=== PATIENT | female | born 1990 | race Caucasian/White ===

== ENCOUNTER 2018-05-07 20:44 | Emergency (ER) | payer BC ==
[~2018-05-07] VITALS: Ht 154.9 cm; Wt 59.4 kg
--- OUTSIDE RECORDS SUMMARY | 2018-05-07 20:47 | XMS REPORT | Summary of Care ---
Author Author [facility] Organization [facility] Address Unknown Phone Unavailable Encounter ABNER De Leon(EVAN) [id number] Date(s): 05/19/16 - 05/20/16 [facility] [address] [place] [address]- Discharge Diagnosis: Hyperemesis gravidarum Discharge Disposition: Home or Self Care Attending Physician: Jonnie Newby MD Vital Signs Most recent to 1 oldest [Reference Range]: Height 154.94 cm (05/19/16 8:13 PM) Temperature Oral 98.2 DegF [96.4-99.1 DegF] (05/19/16 8:13 PM) Blood Pressure 127/83 mmHg [90-140/60-90 mmHg] (05/19/16 8:13 PM) Respiratory Rate 18 BRMIN [14-20 BRMIN] (05/19/16 8:13 PM) Peripheral Pulse 83 bpm Rate [60-100 bpm] (05/19/16 8:13 PM) Weight 55.909 kg (05/19/16 8:13 PM) Body Mass Index 23.29 m2 (05/19/16 8:13 PM) Problem List No data available for this section Allergies, Adverse Reactions, Alerts Substance Reaction Severity Status NKDA Active Medications metoclopramide 10 mg, 2 mL, Route: IVP, Drug form: INJ, ONCE, Dosing Weight 55.909, kg, Priorit y: STAT, Start date: 05/19/16 20:19:00 VETERINARIAN EPIDEMIOLOGIST, Stop date: 05/19/16 20:19:00 VETERINARIAN EPIDEMIOLOGIST Notes: (Same as: Mindy) Start Date: 05/19/16 Stop Date: 05/19/16 Status: Completed Multivitamins with Folic Acid 0.4 mg oral kit 1 tab, PO, Daily, # 30 tab, 0 Refill(s) Start Date: 05/19/16 Stop Date: 06/18/16 Status: Ordered Reglan 10 mg oral tablet 10 mg=1 tab, PO, QID-Before Meals, PRN nausea and vomiting, X 10 day, # 40 tab, 0 Refill(s) Start Date: 05/19/16 Stop Date: 05/29/16 Status: Ordered Saline Flush 0.9% 10 mL, Route: IVP, Drug Form: INJ, Dosing Weight 55.909, kg, PRN, PRN Line Flush , Start date: 05/19/16 20:19:00 VETERINARIAN EPIDEMIOLOGIST, Duration: 30 day, Stop date: 06/18/16 20:18 :00 VETERINARIAN EPIDEMIOLOGIST Notes: (Same as: BD Posiflush) Start Date: 05/19/16 Stop Date: 05/20/16 Status: Discontinued Sodium Chloride 0.9% (Bolus) IV 1,000 mL, 1000 ml/hr, Infuse Over: 1 hr, Route: IV, 1,000, Drug form: INJ, ONCE, Priority: STAT, Dosing Weight 55.909 kg, Start date: 05/19/16 20:19:00 VETERINARIAN EPIDEMIOLOGIST, Dur ation: 1 doses or times, Stop date: 05/19/16 20:19:00 VETERINARIAN EPIDEMIOLOGIST Start Date: 05/19/16 Stop Date: 05/19/16 Status: Completed Results ELECTROLYTES Most recent to 1 oldest [Reference Range]: Sodium Lvl [135-145 138 mEq/L mEq/L] (05/19/16 9:10 PM) Potassium Lvl 4.1 mEq/L [3.5-5.1 mEq/L] (05/19/16 9:10 PM) Chloride Lvl [95-109 107 mEq/L mEq/L] (05/19/16 9:10 PM) CO2 [24-32 mEq/L] 22 mEq/L *LOW* (05/19/16 9:10 PM) AGAP [10.0-20.0 13.1 mEq/L mEq/L] (05/19/16 9:10 PM) CHEM PANEL Most recent to 1 oldest [Reference Range]: Creatinine Lvl 0.54 mg/dL [0.50-1.40 mg/dL] (05/19/16 9:10 PM) eGFR 133 mL/min/1.73m2 1 *NA* (05/19/16 9:10 PM) BUN [7-22 mg/dL] 13 mg/dL (05/19/16 9:10 PM) B/C Ratio [6-25] 24 (05/19/16 9:10 PM) Glucose Lvl [70-99 80 mg/dL mg/dL] (05/19/16 9:10 PM) Total Protein 7.4 g/dL [6.4-8.4 g/dL] (05/19/16 9:10 PM) Albumin Lvl [3.5-5.0 3.6 g/dL g/dL] (05/19/16 9:10 PM) Globulin [2.7-4.2 3.8 g/dL g/dL] (05/19/16 9:10 PM) A/G Ratio [0.7-1.6] 0.9 (05/19/16 9:10 PM) Calcium Lvl 9.1 mg/dL [8.5-10.5 mg/dL] (05/19/16 9:10 PM) Magnesium Lvl 2.1 mg/dL [1.8-2.4 mg/dL] (05/19/16 9:10 PM) ALT [0-65 unit/L] 16 unit/L (05/19/16 9:10 PM) AST [0-37 unit/L] 16 unit/L (05/19/16 9:10 PM) Alk Phos [39-136 41 unit/L unit/L] (05/19/16 9:10 PM) Bili Total [0.2-1.3 0.2 mg/dL mg/dL] (05/19/16 9:10 PM) Lipase Lvl [73-393 107 unit/L unit/L] (05/19/16 9:10 PM) 1Result Comment: The eGFR is calculated using the CKD-EPI formula. In most young, healthy individuals the eGFR will be >90 mL/min/1.73m2. The eGFR declines with age. An eGFR of 60-89 may be normal in some populations, particularly the elderly, for whom the CKD-EPI formula has not been extensively validated. Use of the eGFR is not recommended in the following populations: Individuals with unstable creatinine concentrations, including patients and those with serious co-morbid conditions. Patients with extremes in muscle mass or diet. The data above are obtained from the National Kidney Disease Education Program ( NKDEP) which additionally recommends that when the eGFR is used in patients with extremes of body mass index for purposes of drug dosing, the eGFR should be mul tiplied by the estimated BMI. ENDOCRINOLOGY Most recent to 1 oldest [Reference Range]: hCG Tot 915967 mIU/mL *NA* (05/19/16 9:10 PM) URINE AND STOOL Most recent to 1 oldest [Reference Range]: UA Turbidity [Clear] Clear (05/19/16 11:09 PM) UA Color Ltyellow *NA* (05/19/16 11:09 PM) UA pH [5.0-8.0] 6.0 (05/19/16 11:09 PM) UA Spec Grav 1.011 [<=1.030] (05/19/16 11:09 PM) UA Glucose [Negative Negative mg/dL mg/dL] *NA* (05/19/16 11:09 PM) UA Blood [Negative] Negative (05/19/16 11:09 PM) UA Ketones [Negative 80 mg/dL mg/dL] *ABN* (05/19/16 11:09 PM) UA Protein [Negative Negative mg/dL mg/dL] (05/19/16 11:09 PM) UA Urobilinogen <=1.0 mg/dL [0.1-1.0 mg/dL] *NA* (05/19/16 11:09 PM) UA Bili [Negative] Negative *NA* (05/19/16 11:09 PM) UA Leuk Est Negative [Negative] (05/19/16 11:09 PM) UA Nitrite Negative [Negative] (05/19/16 11:09 PM) UA WBC [0-5 /HPF] 1 /HPF (05/19/16 11:09 PM) UA RBC [0-2 /HPF] 1 /HPF (05/19/16 11:09 PM) UA Bacteria [None Occasional /HPF Seen /HPF] *NA* (05/19/16 11:09 PM) UA Sq Epi [Few /LPF] Few /LPF *NA* (05/19/16 11:09 PM) UA Mucus [None Seen Few /LPF /LPF] *NA* (05/19/16 11:09 PM) HEMATOLOGY Most recent to 1 oldest [Reference Range]: WBC [3.7-10.4 K/CMM] 13.4 K/CMM *HI* (05/19/16 9:10 PM) RBC [4.20-5.40 4.25 M/CMM M/CMM] (05/19/16 9:10 PM) Hgb [12.0-16.0 g/dL] 12.0 g/dL (05/19/16 9:10 PM) Hct [36.0-48.0 %] 36.0 % (05/19/16 9:10 PM) MCV [80.0-98.0 fL] 84.6 fL (05/19/16 9:10 PM) MCH [27.0-31.0 pg] 28.1 pg (05/19/16 9:10 PM) MCHC [32.0-36.0 33.3 g/dL g/dL] (05/19/16 9:10 PM) RDW [11.5-14.5 %] 13.5 % (05/19/16 9:10 PM) Platelet [133-450 224 K/CMM K/CMM] (05/19/16 9:10 PM) MPV [7.4-10.4 fL] 8.4 fL (05/19/16 9:10 PM) Segs [45.0-75.0 %] 74.0 % (05/19/16 9:10 PM) Lymphocytes 14.5 % [20.0-40.0 %] *LOW* (05/19/16 9:10 PM) Monocytes [2.0-12.0 5.7 % %] (05/19/16 9:10 PM) Eosinophils [0.0-4.0 5.4 % %] *HI* (05/19/16 9:10 PM) Basophils [0.0-1.0 0.4 % %] (05/19/16 9:10 PM) Segs-Bands # 9.9 K/CMM [1.5-8.1 K/CMM] *HI* (05/19/16 9:10 PM) Lymphocytes # 1.9 K/CMM [1.0-5.5 K/CMM] (05/19/16 9:10 PM) Monocytes # [0.0-0.8 0.8 K/CMM K/CMM] (05/19/16 9:10 PM) Eosinophils # 0.7 K/CMM [0.0-0.5 K/CMM] *HI* (05/19/16 9:10 PM) Immunizations No data available for this section Procedures No data available for this section Social History Social History Type Response Alcohol Current, Type Beer. Previous treatment: None. Smoking Status Current some day smoker; Exposure to Tobacco Smoke None; Cigarette Smoking Last 365 Days Yes; Reg Smoking Cessation Counseling No Assessment and Plan No data available for this section
--- OUTSIDE RECORDS SUMMARY | 2018-05-07 20:47 | XMS REPORT | Summary of Care ---
Author Author [facility] Organization [facility] Address Unknown Phone Unavailable Encounter ABNER De Leon(FIN) [id number] Date(s): 09/20/17 - 09/20/17 [facility] [address] [place] [address]- Encounter Diagnosis Dermatitis (Discharge Diagnosis) - 09/20/17 Discharge Disposition: Home or Self Care Attending Physician: Peter Macias MD Vital Signs Most recent to 1 2 oldest [Reference Range]: Height 154.94 cm (09/20/17 4:15 PM) Temperature Oral 98.7 DegF 99.8 DegF [96.4-99.1 DegF] (09/20/17 8:52 PM) *HI* (09/20/17 4:15 PM) Blood Pressure 120/70 mmHg 116/68 mmHg [90-140/60-90 mmHg] (09/20/17 8:52 PM) (09/20/17 4:15 PM) Respiratory Rate 20 BRMIN 18 BRMIN [14-20 BRMIN] (09/20/17 8:52 PM) (09/20/17 4:15 PM) Peripheral Pulse 70 bpm 75 bpm Rate [60-100 bpm] (09/20/17 8:52 PM) (09/20/17 4:15 PM) Weight 59.091 kg (09/20/17 4:15 PM) Body Mass Index 24.61 m2 (09/20/17 4:15 PM) Problem List No data available for this section Allergies, Adverse Reactions, Alerts Substance Reaction Severity Status Stadol Active Medications dexamethasone 10 mg, 2.5 mL, Route: IM, Drug form: INJ, ONCE, Dosing Weight 59.091, kg, Priori ty: STAT, Start date: 09/20/17 19:47:00 CDT, Stop date: 09/20/17 19:47:00 CDT Start Date: 09/20/17 Stop Date: 09/20/17 Status: Completed Medrol Dosepak 4 mg oral tablet See Instructions, PO, Take by mouth as directed on label., # 1 Pack, 0 Refill(s) Start Date: 09/20/17 Stop Date: 09/26/17 Status: Ordered ZyrTEC 10 mg oral tablet 10 mg=1 tab, PO, Daily, PRN Allergic reaction, # 10 tab, 0 Refill(s) Start Date: 09/20/17 Stop Date: 09/30/17 Status: Ordered Results No data available for this section Immunizations No data available for this section Procedures No data available for this section Social History Social History Type Response Alcohol Current, Type Beer. Previous treatment: None. Smoking Status Current some day smoker; Exposure to Tobacco Smoke None; Cigarette Smoking Last 365 Days Yes; Reg Smoking Cessation Counseling No entered on: 09/20/17 Assessment and Plan No data available for this section
--- OUTSIDE RECORDS SUMMARY | 2018-05-07 20:47 | XMS REPORT | Summary of Care ---
Author Author [facility] Organization [facility] Address Unknown Phone Unavailable Encounter ABNER De Leon(EVAN) [id number] Date(s): 08/28/15 - 08/29/15 [facility] [address] [place] [address]- Discharge Diagnosis: Unspecified injury of head, initial encounter Discharge Disposition: Home Attending Physician: Diane Tee DO Vital Signs 1 2 3 Most recent to oldest [Reference Range]: 154.94 cm (08/28/15 11:05 PM) Height 98.0 DegF (08/29/15 1:18 AM) 98.8 DegF (08/29/15 12:03 AM) 98.9 DegF (08/28/15 11:05 PM) Temperature Oral [96.4-99.1 DegF] 136/86 mmHg (08/29/15 1:18 AM) 146/86 mmHg *HI* (08/29/15 12:03 AM) 143/84 mmHg *HI* (08/28/15 11:05 PM) Blood Pressure [90-140/60-90 mmHg] 18 BRMIN (08/29/15 1:18 AM) 18 BRMIN (08/29/15 12:03 AM) 18 BRMIN (08/28/15 11:05 PM) Respiratory Rate [14-20 BRMIN] 98 bpm (08/29/15 1:18 AM) 98 bpm (08/29/15 12:03 AM) 96 bpm (08/28/15 11:05 PM) Peripheral Pulse Rate [60-100 bpm] 52.273 kg (08/28/15 11:05 PM) Weight 21.77 m2 (08/28/15 11:05 PM) Body Mass Index Problem List No data available for this section Allergies, Adverse Reactions, Alerts Substance Reaction Severity Status NKDA Active Medications morphine Sulfate 4 mg, Route: IVP, ONCE, Dosing Weight 52.273, kg, Start date: 08/28/15 23:18:00 CDT, Stop date: 08/28/15 23:18:00 CDT Start Date: 08/28/15 Stop Date: 08/28/15 Status: Discontinued [place] 10/325 oral tablet 1 tab, Route: PO, Dosing Weight 52.273, kg, ONCE, Start date: 08/28/15 23:53:00 CDT, Stop date: 08/28/15 23:53:00 CDT Start Date: 08/28/15 Stop Date: 08/28/15 Status: Completed NS (Bolus) IV 1,000 mL, 1,000 ml/hr, Infuse Over: 1 hr, Route: IV, ONCE, Priority: STAT, Dosin g Weight 52.273 kg, Start date: 08/28/15 23:18:00 CDT, Duration: 1 doses or time s, Stop date: 08/28/15 23:18:00 CDT Start Date: 08/28/15 Stop Date: 08/28/15 Status: Discontinued Ultram 50 mg oral tablet 100 mg=2 tab, PO, Q6H, PRN pain, X 3 day, # 24 tab, 0 Refill(s) Start Date: 08/29/15 Stop Date: 09/01/15 Status: Ordered Zofran 4 mg, Route: IVP, Drug form: INJ, ONCE, Dosing Weight 52.273, kg, Priority: STAT , Start date: 08/28/15 23:19:00 CDT, Stop date: 08/28/15 23:19:00 CDT Start Date: 08/28/15 Stop Date: 08/28/15 Status: Discontinued Zofran ODT 4 mg, Route: PO, Drug form: TABDIS, ONCE, Dosing Weight 52.273, kg, Priority: ST AT, Start date: 08/28/15 23:18:00 CDT, Stop date: 08/28/15 23:18:00 CDT Start Date: 08/28/15 Stop Date: 08/28/15 Status: Discontinued Zofran ODT 4 mg, Route: PO, Drug form: TABDIS, ONCE, Dosing Weight 52.273, kg, Priority: ST AT, Start date: 08/29/15 1:14:00 CDT, Stop date: 08/29/15 1:14:00 CDT Start Date: 08/29/15 Stop Date: 08/29/15 Status: Completed Zofran ODT 4 mg oral tablet, disintegrating 4 mg=1 tab, PO, BID, PRN Nausea and Vomiting, Dissolve tab under tongue, X 2 day , # 4 tab, 0 Refill(s) Start Date: 08/29/15 Stop Date: 08/31/15 Status: Completed Results No data available for this section [...]
--- OUTSIDE RECORDS SUMMARY | 2018-05-07 20:47 | XMS REPORT | Summary of Care ---
Author Author [facility] Organization [facility] Address Unknown Phone Unavailable Encounter ABNER De Leon(EVAN) [id number] Date(s): 07/12/16 - 07/12/16 [facility] [address] [place] [address]- Discharge Diagnosis: , threatened Discharge Disposition: Home or Self Care Attending Physician: Jose Tovar MD Vital Signs Most recent to 1 2 oldest [Reference Range]: Height 154.94 cm (07/12/16 4:29 PM) Temperature Oral 98.1 DegF 98.3 DegF [96.4-99.1 DegF] (07/12/16 6:40 PM) (07/12/16 4:29 PM) Blood Pressure 123/66 mmHg 120/74 mmHg [90-140/60-90 mmHg] (07/12/16 6:40 PM) (07/12/16 4:29 PM) Respiratory Rate 17 BRMIN 18 BRMIN [14-20 BRMIN] (07/12/16 6:40 PM) (07/12/16 4:29 PM) Peripheral Pulse 86 bpm 91 bpm Rate [60-100 bpm] (07/12/16 6:40 PM) (07/12/16 4:29 PM) Weight 56.818 kg (07/12/16 4:29 PM) Body Mass Index 23.67 m2 (07/12/16 4:29 PM) Problem List No data available for this section Allergies, Adverse Reactions, Alerts Substance Reaction Severity Status NKDA Active Medications No data available for this section Results BLOOD BANK RESULTS Most recent to 1 oldest [Reference Range]: ABO/Rh O POS *Unknown* (07/12/16 4:41 PM) ELECTROLYTES Most recent to 1 oldest [Reference Range]: Sodium Lvl [135-145 138 mEq/L mEq/L] (07/12/16 4:41 PM) Potassium Lvl 4.0 mEq/L [3.5-5.1 mEq/L] (07/12/16 4:41 PM) Chloride Lvl [95-109 104 mEq/L mEq/L] (07/12/16 4:41 PM) CO2 [24-32 mEq/L] 27 mEq/L (07/12/16 4:41 PM) AGAP [10.0-20.0 11.0 mEq/L mEq/L] (07/12/16 4:41 PM) CHEM PANEL Most recent to 1 oldest [Reference Range]: Creatinine Lvl 0.57 mg/dL [0.50-1.40 mg/dL] (07/12/16 4:41 PM) eGFR 130 mL/min/1.73m2 1 *NA* (07/12/16 4:41 PM) BUN [7-22 mg/dL] 14 mg/dL (07/12/16 4:41 PM) B/C Ratio [6-25] 25 (07/12/16 4:41 PM) Glucose Lvl [70-99 83 mg/dL mg/dL] (07/12/16 4:41 PM) Total Protein 7.2 g/dL [6.4-8.4 g/dL] (07/12/16 4:41 PM) Albumin Lvl [3.5-5.0 3.1 g/dL g/dL] *LOW* (07/12/16 4:41 PM) Globulin [2.7-4.2 4.1 g/dL g/dL] (07/12/16 4:41 PM) A/G Ratio [0.7-1.6] 0.8 (07/12/16 4:41 PM) Calcium Lvl 9.2 mg/dL [8.5-10.5 mg/dL] (07/12/16 4:41 PM) ALT [0-65 unit/L] 17 unit/L (07/12/16 4:41 PM) AST [0-37 unit/L] 14 unit/L (07/12/16 4:41 PM) Alk Phos [39-136 47 unit/L unit/L] (07/12/16 4:41 PM) Bili Total [0.2-1.3 <0.1 mg/dL mg/dL] *LOW* (07/12/16 4:41 PM) 1Result Comment: The eGFR is calculated [...] to 1 oldest [Reference Range]: [place] [address]27 mIU/mL *NA* (07/12/16 6:26 PM) URINE CHEM Most recent to 1 oldest [Reference Range]: U Preg [Negative] Positive *ABN* (07/12/16 6:33 PM) URINE AND STOOL Most recent to 1 oldest [Reference Range]: UA Turbidity [Clear] Clear (07/12/16 5:00 PM) UA Color Colorless *NA* (07/12/16 5:00 PM) UA pH [5.0-8.0] 7.0 (07/12/16 5:00 PM) UA Spec Grav 1.002 [<=1.030] (07/12/16 5:00 PM) UA Glucose [Negative Negative mg/dL mg/dL] *NA* (07/12/16 5:00 PM) UA Blood [Negative] Negative (07/12/16 5:00 PM) UA Ketones [Negative Negative mg/dL mg/dL] *NA* (07/12/16 5:00 PM) UA Protein [Negative Negative mg/dL mg/dL] (07/12/16 5:00 PM) UA Urobilinogen <=1.0 mg/dL [0.1-1.0 mg/dL] *NA* (07/12/16 5:00 PM) UA Bili [Negative] Negative *NA* (07/12/16 5:00 PM) UA Leuk Est Negative [Negative] (07/12/16 5:00 PM) UA Nitrite Negative [Negative] (07/12/16 5:00 PM) UA WBC [0-5 /HPF] 1 /HPF (07/12/16 5:00 PM) UA RBC [0-2 /HPF] 1 /HPF (07/12/16 5:00 PM) UA Bacteria [None Occasional /HPF Seen /HPF] *NA* (07/12/16 5:00 PM) UA Sq Epi [Few /LPF] Occasional /LPF *NA* (07/12/16 5:00 PM) UA Mucus [None Seen Few /LPF /LPF] *NA* (07/12/16 5:00 PM) HEMATOLOGY Most recent to 1 oldest [Reference Range]: WBC [3.7-10.4 K/CMM] 10.6 K/CMM *HI* (07/12/16 4:41 PM) RBC [4.20-5.40 3.82 M/CMM M/CMM] *LOW* (07/12/16 4:41 PM) Hgb [12.0-16.0 g/dL] 11.1 g/dL *LOW* (07/12/16 4:41 PM) Hct [36.0-48.0 %] 32.9 % *LOW* (07/12/16 4:41 PM) MCV [80.0-98.0 fL] 86.1 fL (07/12/16 4:41 PM) MCH [27.0-31.0 pg] 29.2 pg (07/12/16 4:41 PM) MCHC [32.0-36.0 33.9 g/dL g/dL] (07/12/16 4:41 PM) RDW [11.5-14.5 %] 14.2 % (07/12/16 4:41 PM) Platelet [133-450 242 K/CMM K/CMM] (07/12/16 4:41 PM) MPV [7.4-10.4 fL] 7.8 fL (07/12/16 4:41 PM) Segs [45.0-75.0 %] 68.9 % (07/12/16 4:41 PM) Lymphocytes 18.3 % [20.0-40.0 %] *LOW* (07/12/16 4:41 PM) Monocytes [2.0-12.0 8.1 % %] (07/12/16 4:41 PM) Eosinophils [0.0-4.0 4.4 % %] *HI* (07/12/16 4:41 PM) Basophils [0.0-1.0 0.3 % %] (07/12/16 4:41 PM) Segs-Bands # 7.3 K/CMM [1.5-8.1 K/CMM] (07/12/16 4:41 PM) Lymphocytes # 1.9 K/CMM [1.0-5.5 K/CMM] (07/12/16 4:41 PM) Monocytes # [0.0-0.8 0.9 K/CMM K/CMM] *HI* (07/12/16 4:41 PM) Eosinophils # 0.5 K/CMM [0.0-0.5 K/CMM] (07/12/16 4:41 PM) MOLECULAR DIAGNOSTIC Most recent to 1 oldest [Reference Range]: Source APTIMA Endocervix *NA* (07/12/16 6:40 PM) N gonorrhea by Amp Negative Det (APTIMA) *NA* [Negative] (07/12/16 6:40 PM) C trachomatis by Amp Negative Det (APTIMA) *NA* [Negative] (07/12/16 6:40 PM) Immunizations No data available for this [...]
--- OUTSIDE RECORDS SUMMARY | 2018-05-07 20:47 | XMS REPORT | Summary of Care ---
Author Organization Unknown Address Unknown Phone Unavailable Encounter ABNER De Leon(EVAN) [id number] Date(s): 10/01/14 - 10/01/14 [facility] [address] [place] [address]- Discharge Diagnosis: PID (pelvic inflammatory disease) Discharge Diagnosis: Abdominal pain Discharge Diagnosis: Acute vomiting Discharge Diagnosis: Cyst, ovarian Discharge Disposition: Home Physician Attending: Mj Tyson MD Vital Signs Most recent to 1 2 oldest [Reference Range]: Height 154.94 cm (10/01/14 10:59 AM) Temperature Oral 98.7 DegF 98.5 DegF [96.4-99.1 DegF] (10/01/14 4:16 PM) (10/01/14 10:59 AM) Blood Pressure 94/57 mmHg 125/78 mmHg [90-140/60-90 mmHg] (10/01/14 4:16 PM) (10/01/14 10:59 AM) Respiratory Rate 18 BRMIN 18 BRMIN [14-20 BRMIN] (10/01/14 4:16 PM) (10/01/14 10:59 AM) Peripheral Pulse 64 bpm 80 bpm Rate [60-100 bpm] (10/01/14 4:16 PM) (10/01/14 10:59 AM) Weight 56.818 kg (10/01/14 10:59 AM) Body Mass Index 23.67 m2 (10/01/14 10:59 AM) Problem List No data available for this section Allergies, Adverse Reactions, Alerts Substance Reaction Severity Status NKDA Active Medications cefTRIAXone 1 gm, Route: IVPB, Drug form: PDR/INJ, ONCE, Dosing Weight 56.818, kg, Priority: STAT, Start date: 10/01/14 14:02:00, Stop date: 10/01/14 14:02:00 Start Date: 10/01/14 Stop Date: 10/01/14 Status: Completed doxycycline hyclate 100 mg oral tablet 100 mg=1 tab, PO, Q12H, X 14 day, # 28 tab, 0 Refill(s) Start Date: 10/01/14 Stop Date: 10/15/14 Status: Ordered famotidine 20 mg, 2 mL, Route: IVP, Drug form: INJ, ONCE, Dosing Weight 56.818, kg, Priorit y: STAT, Start date: 10/01/14 11:08:00, Stop date: 10/01/14 11:08:00 Notes: (Same as: Pepcid)Can be dilute in 5-10cc NS IVP: Slow IV push over at le ast 2 minutes. Start Date: 10/01/14 Stop Date: 10/01/14 Status: Completed ketOROLAC 30 mg, Route: IVP, Drug form: INJ, ONCE, Dosing Weight 56.818, kg, Priority: STA T, Start date: 10/01/14 14:03:00, Stop date: 10/01/14 14:03:00 Start Date: 10/01/14 Stop Date: 10/01/14 Status: Completed ondansetron 4 mg, 2 mL, Route: IVP, Drug form: INJ, ONCE, Dosing Weight 56.818, kg, Priority : STAT, Start date: 10/01/14 11:08:00, Stop date: 10/01/14 11:08:00 Notes: (Same as: Miracle) MEDICATION WASTE Product Size: 4 mgProduct Was camryn: ___ mg Start Date: 10/01/14 Stop Date: 10/01/14 Status: Completed ondansetron 4 mg oral tablet, disintegrating 4 mg=1 tab, PO, TID, PRN Nausea / Vomiting, Dissolve tab under tongue, X 3 day, # 10 tab, 0 Refill(s) Special Instructions: Dissolve tab under tongue Start Date: 10/01/14 Stop Date: 10/04/14 Status: Ordered promethazine 25 mg, Route: IVPB, ONCE, Dosing Weight 56.818, kg, Priority: STAT, Start date: 10/01/14 14:03:00, Stop date: 10/01/14 14:03:00 Start Date: 10/01/14 Stop Date: 10/01/14 Status: Completed Saline Flush 0.9% 10 mL, Route: IVP, Drug Form: INJ, Dosing Weight 56.818, kg, PRN, PRN Line Flush , Start date: 10/01/14 11:08:00, Duration: 30 day, Stop date: 10/31/14 11:07:00 Notes: (Same as: BD Posiflush) Start Date: 10/01/14 Stop Date: 10/01/14 Status: Discontinued Sodium Chloride 0.9% (Bolus) IV 1,000 mL, 1000 ml/hr, Infuse Over: 1 hr, Route: IV, 1,000, Drug form: INJ, ONCE, Priority: STAT, Dosing Weight 56.818 kg, Start date: 10/01/14 11:08:00, Duratio n: 1 doses or times, Stop date: 10/01/14 11:08:00 Start Date: 10/01/14 Stop Date: 10/01/14 Status: Completed Tylenol with Codeine #3 oral tablet 1 - 2 tab, PO, Q4H, PRN Pain, X 2 day, # 20 tab, 0 Refill(s) Start Date: 10/01/14 Stop Date: 10/03/14 Status: Completed Results ELECTROLYTES Most recent to 1 2 oldest [Reference Range]: Sodium Lvl [135-145 140 mEq/L mEq/L] (10/01/14 11:26 AM) Potassium Lvl 4.0 mEq/L [3.5-5.1 mEq/L] (10/01/14 11:26 AM) Chloride Lvl [95-109 105 mEq/L mEq/L] (10/01/14 11:26 AM) CO2 [24-32 mEq/L] 30 mEq/L (10/01/14 11:26 AM) AGAP [10.0-20.0 9.0 mEq/L mEq/L] *LOW* (10/01/14 11:26 AM) CHEM PANEL Most recent to 1 2 oldest [Reference Range]: Creatinine Lvl 0.8 mg/dL [0.5-1.4 mg/dL] (10/01/14 11:26 AM) eGFR 105 mL/min/1.73m2 1 *NA* (10/01/14 AM) BUN [7-22 mg/dL] 14 mg/dL (10/01/14 AM) B/C Ratio [6-25] 18 (10/01/14 AM) Glucose Lvl [70-99 92 mg/dL 2 mg/dL] (10/01/14 AM) Total Protein 7.3 g/dL [6.4-8.4 g/dL] (10/01/14 AM) Albumin Lvl [3.5-5.0 3.7 g/dL g/dL] (10/01/14 AM) Globulin [2.0-4.0 3.6 g/dL g/dL] (10/01/14 AM) A/G Ratio [0.7-1.6] 1.0 (10/01/14 AM) Calcium Lvl 8.8 mg/dL [8.5-10.5 mg/dL] (10/01/14 AM) Magnesium Lvl 2.0 mg/dL [1.8-2.4 mg/dL] (10/01/14 AM) ALT [0-65 unit/L] 20 unit/L (10/01/14 AM) AST [0-37 unit/L] 15 unit/L (10/01/14 AM) Alk Phos [39-136 53 unit/L unit/L] (10/01/14 AM) Bili Total [0.2-1.3 0.5 mg/dL mg/dL] (10/01/14 AM) Amylase Lvl [25-115 35 unit/L unit/L] (10/01/14 AM) Lipase Lvl [73-393 73 unit/L unit/L] (10/01/14 AM) 1Result Comment: The eGFR is calculated using [...] be mul tiplied by the estimated BMI. 2Interpretive Data: Adult reference range values reflect the clinical guidelines of the [place] [employer]. ENDOCRINOLOGY Most recent to 1 2 oldest [Reference Range]: S Preg [Negative] Negative *NA* (10/01/14 11:26 AM) URINE CHEM Most recent to 1 2 oldest [Reference Range]: U Preg [Negative] Negative (10/01/14 1:11 PM) URINE AND STOOL Most recent to 1 2 oldest [Reference Range]: UA Turbidity [Clear] Clear (10/01/14 1:11 PM) UA Color Ltyellow *NA* (10/01/14 1:11 PM) UA pH [5.0-8.0] 5.0 (10/01/14 1:11 PM) UA Spec Grav 1.012 [<=1.030] (10/01/14 1:11 PM) UA Glucose [Negative Negative mg/dL mg/dL] *NA* (10/01/14 1:11 PM) UA Blood [Negative] Negative (10/01/14 1:11 PM) UA Ketones [Negative Negative mg/dL mg/dL] *NA* (10/01/14 1:11 PM) UA Protein [Negative Negative mg/dL mg/dL] (10/01/14 1:11 PM) UA Urobilinogen <=1.0 mg/dL [0.1-1.0 mg/dL] *NA* (10/01/14 1:11 PM) UA Bili [Negative] Negative *NA* (10/01/14 1:11 PM) UA Leuk Est Negative [Negative] (10/01/14 1:11 PM) UA Nitrite Negative [Negative] (10/01/14 1:11 PM) UA WBC [0-5 /HPF] 1 /HPF (10/01/14 1:11 PM) UA RBC [0-2 /HPF] 1 /HPF (10/01/14 1:11 PM) UA Bacteria [None Occasional /HPF Seen /HPF] *NA* (10/01/14 1:11 PM) UA Sq Epi [Few /LPF] Occasional /LPF *NA* (10/01/14 1:11 PM) IMMUNOLOGY Most recent to 1 2 oldest [Reference Range]: CDC HIV 4th GEN Negative [Negative] (10/01/14 11:26 AM) HEMATOLOGY Most recent to 1 2 oldest [Reference Range]: WBC [3.7-10.4 K/CMM] 8.7 K/CMM (10/01/14 11:26 AM) RBC [4.20-5.40 4.56 M/CMM M/CMM] (10/01/14 11: AM) Hgb [12.0-16.0 g/dL] 13.5 g/dL (10/01/14: AM) Hct [36.0-48.0 %] 39.5 % (10/01/14 11: AM) MCV [80.0-98.0 fL] 86.6 fL (10/01/14 11: AM) MCH [27.0-31.0 pg] 29.7 pg (10/01/14 11:26 AM) MCHC [32.0-36.0 34.3 g/dL g/dL] (10/01/14 11:26 AM) RDW [11.5-14.5 %] 13.0 % (10/01/14 11:26 AM) Platelet [133-450 236 K/CMM K/CMM] (10/01/14 11:26 AM) MPV [7.4-10.4 fL] 8.0 fL (10/01/14 11:26 AM) Segs [45.0-75.0 %] 60.5 % (10/01/14 11:26 AM) Lymphocytes 27.6 % [20.0-40.0 %] (10/01/14 11: AM) Monocytes [2.0-12.0 7.7 % %] (10/01/14 11:26 AM) Eosinophils [0.0-4.0 4.0 % %] (10/01/14 11:26 AM) Basophils [0.0-1.0 0.2 % %] (10/01/14 11:26 AM) Segs-Bands # 5.3 K/CMM [1.5-8.1 K/CMM] (10/01/14 11:26 AM) Lymphocytes # 2.4 K/CMM [1.0-5.5 K/CMM] (10/01/14 11:26 AM) Monocytes # [0.0-0.8 0.7 K/CMM K/CMM] (10/01/14 11:26 AM) Eosinophils # 0.3 K/CMM [0.0-0.5 K/CMM] (10/01/14 11:26 AM) MOLECULAR DIAGNOSTIC Most recent to 1 2 oldest [Reference Range]: Source APTIMA Endocervix Endocervix *NA* *NA* (10/01/14 1:11 PM) (10/01/14 1:11 PM) N gonorrhea by Amp Negative 3 Det (APTIMA) *NA* [Negative] (10/01/14 1:11 PM) C trachomatis by Amp Negative 4 Det (APTIMA) *NA* [Negative] (10/01/14 1:11 PM) 3Interpretive Data: The APTIMA assay is a target amplification nucleic acid probe test utilizing target capture for the qualitative detection and differentiation of ribosomal RNA from Neisseria gonorrhoeae to aid in the diagnosis of disease from symptomatic and asymptomatic individuals using the PANTHER System. This assay utilizes FDA cleared IVD reagents. Performance characteristics have b een verified by the [facility] within [facility]. The Molecular Diagnostic Laboratory is authorized under the Clinical Laboratory Imp rovement Amendments of 1988 (CLIA-88) to perform high complexity testing. 4Interpretive Data: The APTIMA assay is a target amplification nucleic acid probe test utilizing target capture for the qualitative detection and differentiation of ribosomal RNA from Chlamydia trachomatis to aid in the diagnosis of disease from symptomatic and asymptomatic individuals using the PANTHER System. This assay utilizes FDA cleared IVD reagents. Performance characteristics have b een verified by the [facility] within [facility]. The [facility] Laboratory is authorized under the Clinical Laboratory Imp rovement Amendments of 1988 (CLIA-88) to perform high complexity testing. Immunizations No data available for this section Procedures No data available for this section Social History Social History Type Response Smoking Status Current some day smoker; Exposure to Tobacco Smoke None; Cigarette Smoking Last 365 Days Yes; Reg Smoking Cessation Counseling No Assessment and Plan No data available for this section
--- OUTSIDE RECORDS SUMMARY | 2018-05-07 20:47 | XMS REPORT | Summary of Care ---
Author Author [facility] Organization [facility] Address Unknown Phone Unavailable Encounter ABNER De Leon(EVAN) [id number] Date(s): 09/14/16 - 09/15/16 [facility] [address] [place] [address]- Discharge Diagnosis: Discharge Disposition: Home or Self Care Attending Physician: Elise Tran MD Vital Signs Most recent to 1 oldest [Reference Range]: Height 154.94 cm (09/14/16 10:45 PM) Temperature Oral 98.4 DegF [96.4-99.1 DegF] (09/14/16 10:45 PM) Blood Pressure 117/83 mmHg [90-140/60-90 mmHg] (09/14/16 10:45 PM) Respiratory Rate 18 BRMIN [14-20 BRMIN] (09/14/16 10:45 PM) Peripheral Pulse 91 bpm Rate [60-100 bpm] (09/14/16 10:45 PM) Weight 62.273 kg (09/14/16 10:45 PM) Body Mass Index 25.94 m2 (09/14/16 10:45 PM) Problem List No data available for this section Allergies, Adverse Reactions, Alerts Substance Reaction Severity Status NKDA Active Medications Lactated Ringers Injection IV (Lactated Ringers (Bolus) IV) 1,000 mL, 1,000 ml/hr, Infuse Over: 1 hr, Route: IV, 1,000, Drug form: INJ, ONCE , Priority: STAT, Dosing Weight 56.818 kg, Start date: 09/14/16 22:49:00 CDT, Du ration: 1 doses or times, Stop date: 09/14/16 22:49:00 CDT Start Date: 09/14/16 Stop Date: 09/14/16 Status: Completed Zofran 4 mg, 2 mL, Route: IVP, Drug form: INJ, ONCE, Dosing Weight 56.818, kg, Priority : STAT, Start date: 09/14/16 22:49:00 CDT, Stop date: 09/14/16 22:49:00 CDT Notes: (Same as: Miracle) MEDICATION WASTE Product Size: 4 mgProduct Was camryn: ___ mg Start Date: 09/14/16 Stop Date: 09/14/16 Status: Completed Results CHEM PANEL Most recent to 1 oldest [Reference Range]: Fibronectin Negative [Negative] (09/14/16 11:09 PM) URINE AND STOOL Most recent to 1 oldest [Reference Range]: UA Turbidity [Clear] Clear (09/14/16 11:09 PM) UA Color [Yellow] Yellow *NA* (09/14/16 11:09 PM) UA pH [5.0-8.0] 6.0 (09/14/16 11:09 PM) UA Spec Grav 1.019 [<=1.030] (09/14/16 11:09 PM) UA Glucose [Negative Negative mg/dL mg/dL] *NA* (09/14/16 11:09 PM) UA Blood [Negative] Negative (09/14/16 11:09 PM) UA Ketones [Negative 80 mg/dL mg/dL] *ABN* (09/14/16 11:09 PM) UA Protein [Negative Negative mg/dL mg/dL] (09/14/16 11:09 PM) UA Urobilinogen <=1.0 mg/dL [0.1-1.0 mg/dL] *NA* (09/14/16 11:09 PM) UA Bili [Negative] Negative *NA* (09/14/16 11:09 PM) UA Leuk Est Negative [Negative] (09/14/16 11:09 PM) UA Nitrite Negative [Negative] (09/14/16 11:09 PM) UA WBC [0-5 /HPF] 2 /HPF (09/14/16 11:09 PM) UA RBC [0-2 /HPF] <1 /HPF (09/14/16 11:09 PM) UA Sq Epi [Few /LPF] Occasional /LPF *NA* (09/14/16 11:09 PM) UA Mucus [None Seen Few /LPF /LPF] *NA* (09/14/16 11:09 PM) HEMATOLOGY Most recent to 1 oldest [Reference Range]: WBC [3.7-10.4 K/CMM] 10.4 K/CMM (09/14/16 11:09 PM) RBC [4.20-5.40 3.53 M/CMM M/CMM] *LOW* (09/14/16 PM) Hgb [12.0-16.0 g/dL] 10.6 g/dL *LOW* (09/14/16:09 PM) Hct [36.0-48.0 %] 30.5 % *LOW* (09/14/16 PM) MCV [80.0-98.0 fL] 86.1 fL (09/14/1609 PM) MCH [27.0-31.0 pg] 30.0 pg (09/14/16:09 PM) MCHC [32.0-36.0 34.8 g/dL g/dL] (09/14/16 11:09 PM) RDW [11.5-14.5 %] 13.3 % (09/14/16 11:09 PM) Platelet [133-450 217 K/CMM K/CMM] (09/14/16:09 PM) MPV [7.4-10.4 fL] 7.6 fL (09/14/16 11:09 PM) Segs [45.0-75.0 %] 79.5 % *HI* (09/14/16:09 PM) Lymphocytes 12.0 % [20.0-40.0 %] *LOW* (09/14/16:09 PM) Monocytes [2.0-12.0 5.7 % %] (09/14/16 11:09 PM) Eosinophils [0.0-4.0 2.7 % %] (09/14/16 11:09 PM) Basophils [0.0-1.0 0.1 % %] (09/14/16 11:09 PM) Segs-Bands # 8.3 K/CMM [1.5-8.1 K/CMM] *HI* (09/14/16 11:09 PM) Lymphocytes # 1.3 K/CMM [1.0-5.5 K/CMM] (09/14/16 11:09 PM) Monocytes # [0.0-0.8 0.6 K/CMM K/CMM] (09/14/16 11:09 PM) Eosinophils # 0.3 K/CMM [0.0-0.5 K/CMM] (09/14/16 11:09 PM) Immunizations No data available for this [...]
--- OUTSIDE RECORDS SUMMARY | 2018-05-07 20:47 | XMS REPORT | Summary of Care ---
Author Author [facility] Organization [facility] Address Unknown Phone Unavailable Encounter ABNER De Leon(EVAN) [id number] Date(s): 08/08/15 - 08/08/15 [facility] [address] [place] [address]- Discharge Diagnosis: Streptococcal pharyngitis Discharge Diagnosis: Acute lymphadenitis of face, head and neck Discharge Diagnosis: Fever, unspecified Discharge Disposition: Home Attending Physician: Javi Joshi MD Vital Signs Most recent to 1 2 oldest [Reference Range]: Height 154.94 cm (08/08/15 7:55 PM) Temperature Oral 98.8 DegF 99.6 DegF [96.4-99.1 DegF] (08/08/15 9:00 PM) *HI* (08/08/15 7:55 PM) Blood Pressure 121/64 mmHg 127/84 mmHg [90-140/60-90 mmHg] (08/08/15 9:00 PM) (08/08/15 7:55 PM) Respiratory Rate 20 BRMIN 20 BRMIN [14-20 BRMIN] (08/08/15 9:00 PM) (08/08/15 7:55 PM) Peripheral Pulse 94 bpm 104 bpm Rate [60-100 bpm] (08/08/15 9:00 PM) *HI* (08/08/15 7:55 PM) Weight 56.818 kg (08/08/15 7:55 PM) Body Mass Index 23.67 m2 (08/08/15 7:55 PM) Problem List No data available for this section Allergies, Adverse Reactions, Alerts Substance Reaction Severity Status NKDA Active Medications acetaminophen-hydrocodone 325 mg-7.5 mg/15 mL oral solution 15 mL, Route: PO, Drug Form: SOLN, Dosing Weight 56.818, kg, ONCE, STAT, Start d ate: 08/08/15 20:22:00 CDT, Stop date: 08/08/15 20:22:00 CDT Notes: Do not exceed 4gm/day of acetaminophen. (Same as: [place] 325/7.5) Start Date: 08/08/15 Stop Date: 08/08/15 Status: Completed Bicillin L-A 1,200,000 unit, 2 mL, Route: IM, Drug form: INJ, ONCE, Dosing Weight 56.818, kg, Start date: 08/08/15 20:22:00 CDT, Stop date: 08/08/15 20:22:00 CDT Notes: (penicillin G benzathine 1.2 MilUnit/2 ml INJ)(Same as: Bicillin L-A, Per jaime) NOT For Daily Use Start Date: 08/08/15 Stop Date: 08/08/15 Status: Completed dexamethasone 10 mg, 2.5 mL, Route: IM, Drug form: INJ, ONCE, Dosing Weight 56.818, kg, Priori ty: STAT, Start date: 08/08/15 20:22:00 CDT, Stop date: 08/08/15 20:22:00 CDT Notes: Concentration: 4mg/ml Start Date: 08/08/15 Stop Date: 08/08/15 Status: Completed Tylenol with Codeine 120 mg-12 mg/5 mL oral liquid 5 mL, Route: PO, Drug Form: LIQ, Dosing Weight 56.818, kg, ONCE, Start date: 20:22:00 CDT, Stop date: 08/08/15 20:22:00 CDT Notes: (acetaminophen-codeine 120-12 mg/5 ml oral liq) Do not exceed 4gm/day of acetaminophen. (Same as: Tylenol w/Codeine) Start Date: 08/08/15 Stop Date: 08/08/15 Status: Discontinued Results No data available for this section [...]
--- OUTSIDE RECORDS SUMMARY | 2018-05-07 20:47 | XMS REPORT | CCD ---
Author Author Auto Generated Organization [facility] Address Unknown Phone Unavailable Care Team Providers Care Mica Plate Layer Name Role Phone PCP, None CP Unavailable Chana Stewart CP Unavailable ChartServer, Login CP Unavailable CooneyZehra CP Unavailable BurkAriel CP Jc Calero CP Unavailable Falls, Jori CP [phone] Raymundo Andersen CP Unavailable Mcneill, Nam CP Unavailable Allergies, Adverse Reactions, Alerts Substance Reaction Status NKDA ?? Active Vital Signs Most recent to oldest [Reference Range]: 1 2 Height 157.48 cm (03/14/2011 07:28:00) ? Temperature Oral [96.4-99.1 DegF] 98.1 DegF (03/14/2011 07:28:00) ? Systolic Blood Pressure [90-140 mmHg] 118 mmHg (03/14/2011 07:47:00) ?? 118 mmHg (03/14/2011 07:28:00) ?? Diastolic Blood Pressure [60-90 mmHg] 64 mmHg (03/14/2011 07:47:00) ?? 62 mmHg (03/14/2011 07:28:00) ?? Respiratory Rate [14-20 BRMIN] 22 BRMIN *HI* (03/14/2011 07:47:00) ?? 18 BRMIN (03/14/2011 07:28:00) ?? Peripheral Pulse Rate [60-100 bpm] 70 bpm (03/14/2011 07:47:00) ?? 84 bpm (03/14/2011 07:28:00) ?? Weight 52.273 kg (03/14/2011 07:28:00) ?
--- OUTSIDE RECORDS SUMMARY | 2018-05-07 20:47 | XMS REPORT | Summary of Care ---
Author Author [facility] Organization [facility] Address Unknown Phone Unavailable Encounter ABNER De Leon(EVAN) [id number] Date(s): 09/18/15 - 09/18/15 [facility] [address] [place] [address]- Discharge Diagnosis: Abnormal vaginal bleeding Discharge Disposition: Home Attending Physician: Benny Fernandez DO Vital Signs Most recent to 1 2 oldest [Reference Range]: Height 154.94 cm (09/18/15 4:49 PM) Temperature Oral 98.3 DegF 98.1 DegF [96.4-99.1 DegF] (09/18/15 7:25 PM) (09/18/15 4:49 PM) Blood Pressure 119/76 mmHg 123/80 mmHg [90-140/60-90 mmHg] (09/18/15 7:25 PM) (09/18/15 4:49 PM) Respiratory Rate 18 BRMIN 18 BRMIN [14-20 BRMIN] (09/18/15 7:25 PM) (09/18/15 4:49 PM) Peripheral Pulse 84 bpm 73 bpm Rate [60-100 bpm] (09/18/15 7:25 PM) (09/18/15 4:49 PM) Weight 56.818 kg (09/18/15 4:49 PM) Body Mass Index 23.67 m2 (09/18/15 4:49 PM) Problem List No data available for this section Allergies, Adverse Reactions, Alerts Substance Reaction Severity Status NKDA Active Medications ibuprofen 800 mg oral tablet 800 mg=1 tab, PO, Q6H, PRN Fever or Pain, Take with food, # 40 tab, 0 Refill(s) Start Date: 09/18/15 Stop Date: 09/28/15 Status: Ordered Saline Flush 0.9% 10 mL, Route: IVP, Drug Form: INJ, Dosing Weight 56.818, kg, PRN, PRN Line Flush , Start date: 09/18/15 17:20:00 CDT, Duration: 30 day, Stop date: 10/18/15 17:19 :00 CDT Notes: (Same as: BD Posiflush) Start Date: 09/18/15 Stop Date: 09/18/15 Status: Discontinued Results BLOOD BANK RESULTS Most recent to 1 oldest [Reference Range]: ABO/Rh O POS *Unknown* (09/18/15 5:22 PM) ELECTROLYTES Most recent to 1 oldest [Reference Range]: Sodium Lvl [135-145 139 mEq/L mEq/L] (09/18/15 5:22 PM) Potassium Lvl 4.2 mEq/L [3.5-5.1 mEq/L] (09/18/15 5:22 PM) Chloride Lvl [95-109 106 mEq/L mEq/L] (09/18/15 5:22 PM) CO2 [24-32 mEq/L] 25 mEq/L (09/18/15 5:22 PM) AGAP [10.0-20.0 12.2 mEq/L mEq/L] (09/18/15 5:22 PM) CHEM PANEL Most recent to 1 oldest [Reference Range]: Creatinine Lvl 0.84 mg/dL [0.50-1.40 mg/dL] (09/18/15 5:22 PM) eGFR 98 mL/min/1.73m2 1 *NA* (09/18/15 5:22 PM) BUN [7-22 mg/dL] 13 mg/dL (09/18/15 5:22 PM) B/C Ratio [6-25] 15 (09/18/15 5:22 PM) Glucose Lvl [70-99 107 mg/dL mg/dL] *HI* (09/18/15 5:22 PM) Total Protein 7.8 g/dL [6.4-8.4 g/dL] (09/18/15 5:22 PM) Albumin Lvl [3.5-5.0 3.8 g/dL g/dL] (09/18/15 5:22 PM) Globulin [2.0-4.0 4.0 g/dL g/dL] (09/18/15 5:22 PM) A/G Ratio [0.7-1.6] 1.0 (09/18/15 5:22 PM) Calcium Lvl 8.7 mg/dL [8.5-10.5 mg/dL] (09/18/15 5:22 PM) ALT [0-65 unit/L] 17 unit/L (09/18/15 5:22 PM) AST [0-37 unit/L] 17 unit/L (09/18/15 5:22 PM) Alk Phos [39-136 58 unit/L unit/L] (09/18/15 5:22 PM) Bili Total [0.2-1.3 0.3 mg/dL mg/dL] (09/18/15 5:22 PM) 1Result Comment: The eGFR is calculated [...] to 1 oldest [Reference Range]: hCG Tot <1 mIU/mL *NA* (09/18/15 5:22 PM) URINE CHEM Most recent to 1 oldest [Reference Range]: U Preg [Negative] Negative (09/18/15 5:22 PM) URINE AND STOOL Most recent to 1 oldest [Reference Range]: UA Turbidity [Clear] Clear (09/18/15 5:22 PM) UA Color Ltyellow *NA* (09/18/15 5:22 PM) UA pH [5.0-8.0] 5.0 (09/18/15 5:22 PM) UA Spec Grav 1.005 [<=1.030] (09/18/15 5:22 PM) UA Glucose [Negative Negative mg/dL mg/dL] *NA* (09/18/15 5:22 PM) UA Blood [Negative] Large *ABN* (09/18/15 5:22 PM) UA Ketones [Negative Negative mg/dL mg/dL] *NA* (09/18/15 5:22 PM) UA Protein [Negative Negative mg/dL mg/dL] (09/18/15 5:22 PM) UA Urobilinogen <=1.0 mg/dL [0.1-1.0 mg/dL] *NA* (09/18/15 5:22 PM) UA Bili [Negative] Negative *NA* (09/18/15 5:22 PM) UA Leuk Est Negative [Negative] (09/18/15 5:22 PM) UA Nitrite Negative [Negative] (09/18/15 5:22 PM) UA WBC [0-5 /HPF] 1 /HPF (09/18/15 5:22 PM) UA RBC [0-2 /HPF] 8 /HPF *HI* (09/18/15 5:22 PM) UA Bacteria [None Occasional /HPF Seen /HPF] *NA* (09/18/15 5:22 PM) UA Sq Epi [Few /LPF] Occasional /LPF *NA* (09/18/15 5:22 PM) UA Trans Epi [<=0 2 /LPF /LPF] *HI* (09/18/15 5:22 PM) HEMATOLOGY Most recent to 1 oldest [Reference Range]: WBC [3.7-10.4 K/CMM] 10.1 K/CMM (09/18/15 5:22 PM) RBC [4.20-5.40 4.52 M/CMM M/CMM] (09/18/15 5:22 PM) Hgb [12.0-16.0 g/dL] 12.8 g/dL (09/18/15 5:22 PM) Hct [36.0-48.0 %] 39.3 % (09/18/15 5:22 PM) MCV [80.0-98.0 fL] 86.9 fL (09/18/15 5:22 PM) MCH [27.0-31.0 pg] 28.4 pg (09/18/15 5:22 PM) MCHC [32.0-36.0 32.7 g/dL g/dL] (09/18/15 5:22 PM) RDW [11.5-14.5 %] 14.2 % (09/18/15 5:22 PM) Platelet [133-450 262 K/CMM K/CMM] (09/18/15 5:22 PM) MPV [7.4-10.4 fL] 8.3 fL (09/18/15 5:22 PM) Segs [45.0-75.0 %] 62.4 % (09/18/15 5:22 PM) Lymphocytes 25.1 % [20.0-40.0 %] (09/18/15 5:22 PM) Monocytes [2.0-12.0 7.7 % %] (09/18/15 5:22 PM) Eosinophils [0.0-4.0 4.2 % %] *HI* (09/18/15 5:22 PM) Basophils [0.0-1.0 0.6 % %] (09/18/15 5:22 PM) Segs-Bands # 6.3 K/CMM [1.5-8.1 K/CMM] (09/18/15 5:22 PM) Lymphocytes # 2.5 K/CMM [1.0-5.5 K/CMM] (09/18/15 5:22 PM) Monocytes # [0.0-0.8 0.8 K/CMM K/CMM] (09/18/15 5:22 PM) Eosinophils # 0.4 K/CMM [0.0-0.5 K/CMM] (09/18/15 5:22 PM) Basophils # [0.0-0.2 0.1 K/CMM K/CMM] (09/18/15 5:22 PM) Immunizations No data available for this [...]
--- OUTSIDE RECORDS SUMMARY | 2018-05-07 20:47 | XMS REPORT | Summary of Care ---
Author Author [facility] Organization [facility] Address Unknown Phone Unavailable Encounter ABNER De Leon(EVAN) [id number] Date(s): 07/07/17 - 07/08/17 [facility] [address] [place] [address]- [phone] Encounter Diagnosis Acute pharyngitis, unspecified (Final) - 07/14/17 Discharge Disposition: Home or Self Care Attending Physician: Dylan Abreu MD Vital Signs Most recent to 1 2 oldest [Reference Range]: Height 154.94 cm (07/07/17 11:40 PM) Temperature Oral 98.1 DegF 98.3 DegF [96.4-99.1 DegF] (07/08/17 2:30 AM) (07/07/17 11:40 PM) Blood Pressure 116/82 mmHg 134/84 mmHg [90-140/60-90 mmHg] (07/08/17 2:30 AM) (07/07/17 11:40 PM) Respiratory Rate 14 BRMIN 16 BRMIN [14-20 BRMIN] (07/08/17 2:30 AM) (07/07/17 11:40 PM) Peripheral Pulse 78 bpm 68 bpm Rate [60-100 bpm] (07/08/17 2:30 AM) (07/07/17 11:40 PM) Weight 54.545 kg (07/07/17 11:40 PM) Body Mass Index 22.72 m2 (07/07/17 11:40 PM) Problem List No data available for this section Allergies, Adverse Reactions, Alerts Substance Reaction Severity Status Stadol Active Medications No data available for this section Results RAPID Most recent to 1 oldest [Reference Range]: Grp A Strep Scr Negative [Negative] (07/08/17 12:20 AM) VIRAL - SEROLOGY Most recent to 1 oldest [Reference Range]: Influ A [Negative] Negative (07/08/17 12:20 AM) Influ B [Negative] Negative (07/08/17 12:20 AM) Immunizations No data available for this section [...]
--- OUTSIDE RECORDS SUMMARY | 2018-05-07 20:47 | XMS REPORT | Continuity of Care Document ---
Author Author [facility] Interface Address Unknown Phone Unavailable Problems Problem Status Onset Date Classification Date Reported Comments Source Dermatitis 09/20/2017 09/23/2017 [facility] RASH Active 09/20/2017 [facility] Acute pharyngitis, unspecified 07/15/2017 10/14/2017 [facility] FLU LIKE SYMPTOMS Active 07/07/2017 [facility] Discharge Diagnosis: 09/15/2016 09/18/2016 [facility] LOWER ABDOMINAL PAIN Active 09/14/2016 [facility] VAG BLEED Active 07/12/2016 [facility] Discharge Diagnosis: , threatened 07/12/2016 07/15/2016 [facility] Diagnosis: Hyperemesis gravidarum 05/19/2016 05/23/2016 [facility] PREG/VOMMITTING Active 05/19/2016 [facility] Discharge Diagnosis: Abnormal vaginal bleeding 09/18/2015 09/21/2015 [facility] PREG, PELVIC PAIN Active 09/18/2015 [facility] Discharge Diagnosis: Unspecified injury of head, initial encounter 08/29/2015 09/01/2015 [facility] Discharge Diagnosis: Streptococcal pharyngitis 08/08/2015 08/11/2015 [facility] Discharge Diagnosis: Acute lymphadenitis of face, head and neck 08/08/2015 08/11/2015 [facility] Discharge Diagnosis: Fever, unspecified 08/08/2015 08/11/2015 [facility] STREP THROAT Active 08/08/2015 [facility] Discharge Diagnosis: PID 10/01/2014 10/04/2014 [facility] Discharge Diagnosis: Abdominal pain 10/01/2014 10/04/2014 [facility] Discharge Diagnosis: Acute vomiting 10/01/2014 10/04/2014 [facility] Discharge Diagnosis: Cyst, ovarian 10/01/2014 10/04/2014 [facility] ABD PAIN/VOMITING/NAUSEA Active 10/01/2014 [facility] HEAD PAIN OR INJURY Active 08/28/2012 [facility] LOWER EXTREMITY INJURY Active 03/14/2011 [facility] Medications Medication Details Route Status Patient Instructions Ordering Provider Order Date Source cetirizine hydrochloride 10 MG Oral Tablet [Zyrtec] 10 mg=1 tab, PO, Daily, PRN Allergic reaction, # 10 tab, 0 Refill(s) Active 09/21/2017 [facility] {21 (Methylprednisolone 4 MG Oral Tablet [Medrol]) } Pack [Medrol Dosepak] See Instructions, PO, Take by mouth as directed on label., # 1 Pack, 0 Refill(s) Active 09/21/2017 [facility] Dexamethasone 10 mg, 2.5 mL, Route: IM, Drug form: INJ, ONCE, Dosing Weight 59.091, kg, Priority: STAT, Start date: 09/20/17 19:47:00 CDT, Stop date: 09/20/17 19:47:00 CDT Inactive 09/21/2017 [facility] Zofran 4 mg, 2 mL, Route: IVP, Drug form: INJ, ONCE, Dosing Weight 56.818, kg, Priority: STAT, Start date: 09/14/16 22:49:00 CDT, Stop date: 09/14/16 22:49:00 CDTNotes: (Same as: Zofran) MEDICATION WASTE Product Size: 4 mg Product Wasted: ___ mg Inactive 09/15/2016 [facility] Calcium Chloride 0.0014 MEQ/ML / Potassium Chloride 0.004 MEQ/ML / Sodium Chloride 0.103 MEQ/ML / Sodium Lactate 0.028 MEQ/ML Injectable Solution 1,000 mL, 1,000 ml/hr, Infuse Over: 1 hr, Route: IV, 1,000, Drug form: INJ, ONCE, Priority: STAT, Dosing Weight 56.818 kg, Start date: 09/14/16 22:49:00 CDT, Duration: 1 doses or times, Stop date: 09/14/16 22:49:00 CDT Inactive 09/15/2016 [facility] Multivitamins with Folic Acid 0.4 mg oral kit 1 tab, PO, Daily, # 30 tab, 0 Refill(s) Active 05/20/2016 [facility] Metoclopramide 10 MG Oral Tablet [Reglan] 10 mg=1 tab, PO, QID-Before Meals, PRN nausea and vomiting, X 10 day, # 40 tab, 0 Refill(s) Active 05/20/2016 [facility] Metoclopramide 10 mg, 2 mL, Route: IVP, Drug form: INJ, ONCE, Dosing Weight 55.909, kg, Priority: STAT, Start date: 05/19/16 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, Stop date: 05/19/16 20:19:00 CSTNotes: (Same as: Reglan) Inactive 05/20/2016 [facility] Sodium Chloride 0.154 MEQ/ML Injectable Solution 1,000 mL, 1000 ml/hr, Infuse Over: 1 hr, Route: IV, 1,000, Drug form: INJ, ONCE, Priority: STAT, Dosing Weight 55.909 kg, Start date: 05/19/16 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, Duration: 1 doses or times, Stop date: 05/19/16 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 Inactive 05/20/2016 [facility] Saline Flush 0.9% 10 mL, Route: IVP, Drug Form: INJ, Dosing Weight 55.909, kg, PRN, PRN Line Flush, Start date: 05/19/16 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, Duration: 30 day, Stop date: 06/18/16 20:18:00 CSTNotes: (Same as: BD Posiflush) No Longer Active 05/20/2016 [facility] ibuprofen 800 mg oral tablet 800 mg=1 tab, PO, Q6H, PRN Fever or Pain, Take with food, # 40 tab, 0 Refill(s) Active 09/19/2015 [facility] Saline Flush 0.9% 10 mL, Route: IVP, Drug Form: INJ, Dosing Weight 56.818, kg, PRN, PRN Line Flush, Start date: 09/18/15 17:20:00 CDT, Duration: 30 day, Stop date: 10/18/15 17:19:00 CDTNotes: (Same as: BD Posiflush) Inactive 09/18/2015 [facility] Zofran ODT 4 mg, Route: PO, Drug form: TABDIS, ONCE, Dosing Weight 52.273, kg, Priority: STAT, Start date: 08/29/15 1:14:00 CDT, Stop date: 08/29/15 1:14:00 CDT Inactive 08/29/2015 [facility] tramadol hydrochloride 50 MG Oral Tablet [Ultram] 100 mg=2 tab, PO, Q6H, PRN pain, X 3 day, # 24 tab, 0 Refill(s) Active 08/29/2015 [facility] Ondansetron 4 MG Disintegrating Tablet [Zofran] 4 mg=1 tab, PO, BID, PRN Nausea and Vomiting, Dissolve tab under tongue, X 2 day, # 4 tab, 0 Refill(s) No Longer Active 08/29/2015 [facility] Acetaminophen 325 MG / Hydrocodone Bitartrate 10 MG Oral Tablet [[place] 10/325] 1 tab, Route: PO, Dosing Weight 52.273, kg, ONCE, Start date: 08/28/15 23:53:00 CDT, Stop date: 08/28/15 23:53:00 CDT Inactive 08/29/2015 [facility] Zofran 4 mg, Route: IVP, Drug form: INJ, ONCE, Dosing Weight 52.273, kg, Priority: STAT, Start date: 08/28/15 23:19:00 CDT, Stop date: 08/28/15 23:19:00 CDT Inactive 08/29/2015 [facility] Zofran ODT 4 mg, Route: PO, Drug form: TABDIS, ONCE, Dosing Weight 52.273, kg, Priority: STAT, Start date: 08/28/15 23:18:00 CDT, Stop date: 08/28/15 23:18:00 CDT Inactive 08/29/2015 [facility] Morphine 4 mg, Route: IVP, ONCE, Dosing Weight 52.273, kg, Start date: 08/28/15 23:18:00 CDT, Stop date: 08/28/15 23:18:00 CDT Inactive 08/29/2015 [facility] Sodium Chloride 0.154 MEQ/ML Injectable Solution 1,000 mL, 1,000 ml/hr, Infuse Over: 1 hr, Route: IV, ONCE, Priority: STAT, Dosing Weight 52.273 kg, Start date: 08/28/15 23:18:00 CDT, Duration: 1 doses or times, Stop date: 08/28/15 23:18:00 CDT Inactive 08/29/2015 [facility] Acetaminophen 21.7 MG/ML / Hydrocodone Bitartrate 0.5 MG/ML Oral Solution 15 mL, Route: PO, Drug Form: SOLN, Dosing Weight 56.818, kg, ONCE, STAT, Start date: 08/08/15 20:22:00 CDT, Stop date: 08/08/15 20:22:00 CDTNotes: Do not exceed 4gm/day of acetaminophen. (Same as: [place] 325/7.5) Inactive 08/09/2015 [facility] Tylenol with Codeine 120 mg-12 mg/5 mL oral liquid 5 mL, Route: PO, Drug Form: LIQ, Dosing Weight 56.818, kg, ONCE, Start date: 08/08/15 20:22:00 CDT, Stop date: 08/08/15 20:22:00 CDTNotes: (acetaminophen-codeine 120- 12 mg/5 ml oral liq) Do not exceed 4gm/day of acetaminophen. (Same as: Tylenol w/Codeine) Inactive 08/09/2015 [facility] Dexamethasone 10 mg, 2.5 mL, Route: IM, Drug form: INJ, ONCE, Dosing Weight 56.818, kg, Priority: STAT, Start date: 08/08/15 20:22:00 CDT, Stop date: 08/08/15 20:22:00 CDTNotes: Concentration: 4mg/ml Inactive 08/09/2015 [facility] Bicillin L-A 1,200,000 unit, 2 mL, Route: IM, Drug form: INJ, ONCE, Dosing Weight 56.818, kg, Start date: 08/08/15 20:22:00 CDT, Stop date: 08/08/15 20:22:00 CDTNotes: (penicillin G benzathine 1.2 MilUnit/2 ml INJ) (Same as: Bicillin L-A, Permapen) NOT For Daily Use Inactive 08/09/2015 [facility] Ondansetron 4 MG Disintegrating Tablet 4 mg=1 tab, PO, TID, PRN Nausea / Vomiting, Dissolve tab under tongue, X 3 day, # 10 tab, 0 Refill(s)Special Instructions: Dissolve tab under tongue Active 10/01/2014 [facility] doxycycline hyclate 100 mg oral tablet 100 mg=1 tab, PO, Q12H, X 14 day, # 28 tab, 0 Refill(s) Active 10/01/2014 [facility] Acetaminophen 300 MG / Codeine Phosphate 30 MG Oral Tablet [Tylenol with Codeine #3] 1 - 2 tab, PO, Q4H, PRN Pain, X 2 day, # 20 tab, 0 Refill(s) No Longer Active 10/01/2014 [facility] Promethazine 25 mg, Route: IVPB, ONCE, Dosing Weight 56.818, kg, Priority: STAT, Start date: 10/01/14 14:03:00, Stop date: 10/01/14 14:03:00 Inactive 10/01/2014 [facility] Ketorolac 30 mg, Route: IVP, Drug form: INJ, ONCE, Dosing Weight 56.818, kg, Priority: STAT, Start date: 10/01/14 14:03:00, Stop date: 10/01/14 14:03:00 Inactive 10/01/2014 [facility] Ceftriaxone 1 gm, Route: IVPB, Drug form: PDR/INJ, ONCE, Dosing Weight 56.818, kg, Priority: STAT, Start date: 10/01/14 14:02:00, Stop date: 10/01/14 14:02:00 Inactive 10/01/2014 [facility] Sodium Chloride 0.154 MEQ/ML Injectable Solution 1,000 mL, 1000 ml/hr, Infuse Over: 1 hr, Route: IV, 1,000, Drug form: INJ, ONCE, Priority: STAT, Dosing Weight 56.818 kg, Start date: 10/01/14 11:08:00, Duration: 1 doses or times, Stop date: 10/01/14 11:08:00 Inactive 10/01/2014 [facility] Saline Flush 0.9% 10 mL, Route: IVP, Drug Form: INJ, Dosing Weight 56.818, kg, PRN, PRN Line Flush, Start date: 10/01/14 11:08:00, Duration: 30 day, Stop date: 10/31/14 11:07:00Notes: (Same as: BD Posiflush) Inactive 10/01/2014 [facility] Ondansetron 4 mg, 2 mL, Route: IVP, Drug form: INJ, ONCE, Dosing Weight 56.818, kg, Priority: STAT, Start date: 10/01/14 11:08:00, Stop date: 10/01/14 11:08:00Notes: (Same as: Zofran) MEDICATION WASTE Product Size: 4 mg Product Wasted: ___ mg Inactive 10/01/2014 [facility] Famotidine 20 mg, 2 mL, Route: IVP, Drug form: INJ, ONCE, Dosing Weight 56.818, kg, Priority: STAT, Start date: 10/01/14 11:08:00, Stop date: 10/01/14 11:08:00Notes: (Same as: Pepcid) Can be dilute in 5-10cc NS IVP: Slow IV push over at least 2 minutes. Inactive 10/01/2014 [facility] Allergies, Adverse Reactions, Alerts Substance Category Reaction Severity Reaction type Status Date Reported Comments Source Stadol Assertion Drug allergy Active [facility] Immunizations Immunization Date Given Site Status Last Updated Comments Source Results Order Name Results Value Reference Range Date Interpretation Comments Source RAPID Grp A Strep Scr Negative (07/08/17 12:20 AM) Negative 07/08/2017 [facility] VIRAL - SEROLOGY Influ A Negative (07/08/17 12:20 AM) Negative 07/08/2017 [facility] VIRAL - SEROLOGY Influ B Negative (07/08/17 12:20 AM) Negative 07/08/2017 [facility] Chest 2 views DX Chest 2 views DX Chest, 2 views dated 07/08/2017. HISTORY: Cough. No prior studies are available for comparison. The heart is normal in size. The cardiomediastinal shadow appears within normal limits. The lungs appear clear. The pulmonary vasculature appears normal in caliber. No acute pleural space abnormalities are identified. IMPRESSION: 1. No radiographic evidence of acute cardiopulmonary disease. SL: 131 07/08/2017 - - Read by: Eamon Ritter MD Dictated Date/time: 07/08/17 00:15 Electronically Signed by: Eamon Ritter MD 07/08/17 00:17 FINAL REPORT [facility] CHEM PANEL Fibronectin Negative (09/14/16 11:09 PM) Negative 09/15/2016 [facility] HEMATOLOGY Segs-Bands # 8.3 K/CMM 1.5 - 8.1 09/15/2016 [facility] HEMATOLOGY Basophils 0.1 % 0.0 - 1.0 09/15/2016 [facility] HEMATOLOGY Eosinophils 2.7 % 0.0 - 4.0 09/15/2016 [facility] HEMATOLOGY Monocytes 5.7 % 2.0 - 12.0 09/15/2016 [facility] HEMATOLOGY Lymphocytes 12.0 % 20.0 - 40.0 09/15/2016 [facility] HEMATOLOGY Eosinophils # 0.3 K/CMM 0.0 - 0.5 09/15/2016 [facility] HEMATOLOGY Monocytes # 0.6 K/CMM 0.0 - 0.8 09/15/2016 [facility] HEMATOLOGY Lymphocytes # 1.3 K/CMM 1.0 - 5.5 09/15/2016 [facility] HEMATOLOGY Segs 79.5 % 45.0 - 75.0 09/15/[address] [facility] MCHC 34.8 g/dL 32.0 - 36.0 09/15/[address] [facility] MCH 30.0 pg 27.0 - 31.0 09/15/2016 [facility] HEMATOLOGY MCV 86.1 fL 80.0 - 98.0 09/15/2016 [facility] HEMATOLOGY Hct 30.5 % 36.0 - 48.0 09/15/[address] [facility] Hgb 10.6 g/dL 12.0 - 16.0 09/15/[address] [facility] MPV 7.6 fL 7.4 - 10.4 09/15/[address] [facility] Platelet 217 K/CMM 133 - 450 09/15/2016 [facility] HEMATOLOGY RDW 13.3 % 11.5 - 14.5 09/15/2016 [facility] HEMATOLOGY RBC 3.53 M/CMM 4.20 - 5.40 09/15/2016 [facility] HEMATOLOGY WBC 10.4 K/CMM 3.7 - 10.4 09/15/2016 [facility] URINE AND STOOL UA Mucus Few /LPF None Seen /LPF 09/15/2016 [facility] URINE AND STOOL UA Leuk Est Negative (09/14/16 11:09 PM) Negative 09/15/2016 [facility] URINE AND STOOL UA WBC 2 /HPF 0 - 5 09/15/2016 [facility] URINE AND STOOL UA RBC null 0 - 2 09/15/2016 [facility] URINE AND STOOL UA Bili Negative *NA* (09/14/16 11:09 PM) Negative 09/15/2016 [facility] URINE AND STOOL UA Ketones 80 mg/dL Negative mg/dL 09/15/2016 [facility] URINE AND STOOL UA Blood Negative (09/14/16 11:09 PM) Negative 09/15/2016 [facility] URINE AND STOOL UA Nitrite Negative (09/14/16 11:09 PM) Negative 09/15/2016 [facility] URINE AND STOOL UA Sq Epi Occasional /LPF Few /LPF 09/15/2016 [facility] URINE AND STOOL UA Color Yellow *NA* (09/14/16 11:09 PM) Yellow 09/15/[facility] URINE AND STOOL UA Spec Grav 1.019 <=1.030 09/15/2016 [facility] URINE AND STOOL UA Turbidity Clear (09/14/16 11:09 PM) Clear 09/15/2016 [facility] URINE AND STOOL UA Protein Negative mg/dL Negative mg/dL 09/15/2016 [facility] URINE AND STOOL UA pH 6.0 5.0 - 8.0 09/15/2016 [facility] URINE AND STOOL UA Glucose Negative mg/dL Negative mg/dL 09/15/2016 [facility] URINE AND STOOL UA Urobilinogen <=1.0 mg/dL 0.1 - 1.0 09/15/2016 [facility] MOLECULAR DIAGNOSTIC N gonorrhea by Amp Det (APTIMA) Negative *NA* (07/12/16 6:40 PM) Negative 07/12/2016 [facility] MOLECULAR DIAGNOSTIC Source APTIMA Endocervix *NA* (07/12/16 6:40 PM) 07/12/2016 [facility] MOLECULAR DIAGNOSTIC C trachomatis by Amp Det (APTIMA) Negative *NA* (07/12/16 6:40 PM) Negative 07/12/2016 [facility] URINE CHEM U Preg Positive *ABN* (07/12/16 6:33 PM) Negative 07/12/2016 [facility] [place]INOLOGY [place] [id number] mIU/mL 07/12/2016 [facility] URINE AND STOOL UA Color Colorless 07/12/2016 [facility] URINE AND STOOL UA Mucus Few /LPF None Seen /LPF 07/12/2016 [facility] URINE AND STOOL UA Urobilinogen <=1.0 mg/dL 0.1 - 1.0 07/12/2016 [facility] URINE AND STOOL UA Protein Negative mg/dL Negative mg/dL 07/12/2016 [facility] URINE AND STOOL UA pH 7.0 5.0 - 8.0 07/12/2016 [facility] URINE AND STOOL UA Spec Grav 1.002 <=1.030 07/12/2016 [facility] URINE AND STOOL UA Glucose Negative mg/dL Negative mg/dL 07/12/2016 [facility] URINE AND STOOL UA Bili Negative *NA* (07/12/16 5:00 PM) Negative 07/12/2016 [facility] URINE AND STOOL UA Ketones Negative mg/dL Negative mg/dL 07/12/2016 [facility] URINE AND STOOL UA Nitrite Negative (07/12/16 5:00 PM) Negative 07/12/2016 [facility] URINE AND STOOL UA Blood Negative (07/12/16 5:00 PM) Negative 07/12/2016 [facility] URINE AND STOOL UA Leuk Est Negative (07/12/16 5:00 PM) Negative 07/12/2016 [facility] URINE AND STOOL UA Turbidity Clear (07/12/16 5:00 PM) Clear 07/12/2016 [facility] URINE AND STOOL UA RBC 1 /HPF 0 - 2 07/12/2016 [facility] URINE AND STOOL UA WBC 1 /HPF 0 - 5 07/12/2016 [facility] URINE AND STOOL UA Sq Epi Occasional /LPF Few /LPF 07/12/2016 [facility] URINE AND STOOL UA Bacteria Occasional /HPF None Seen /HPF 07/12/2016 [facility] BLOOD BANK RESULTS ABO/Rh O POS 07/12/2016 [facility] CHEM PANEL A/G Ratio 0.8 0.7 - 1.6 07/12/2016 [facility] CHEM PANEL Globulin 4.1 g/dL 2.7 - 4.2 07/12/2016 [facility] CHEM PANEL B/C Ratio 25 6 - 25 07/12/2016 [facility] CHEM PANEL AGAP 11.0 meq/L 10.0 - 20.0 07/12/2016 [facility] CHEM PANEL eGFR 130 mL/min/1.73m2 07/12/2016 Result Comment: The eGFR is calculated using the [...] from the National Kidney Disease Education Program (NKDEP) which additionally recommends that when the eGFR is used in patients with extremes of body mass index for purposes of drug dosing, the eGFR should be multiplied by the estimated BMI. [facility] CHEM PANEL AST 14 unit/L 0 - 37 07/12/2016 [facility] CHEM PANEL ALT 17 unit/L 0 - 65 07/12/2016 [facility] CHEM PANEL Bili Total null 0.2 - 1.3 07/12/2016 [facility] CHEM PANEL Alk Phos 47 unit/L 39 - 136 07/12/2016 [facility] CHEM PANEL Glucose Lvl 83 mg/dL 70 - 99 07/12/2016 [facility] CHEM PANEL Albumin Lvl 3.1 g/dL 3.5 - 5.0 07/12/2016 [facility] CHEM PANEL Total Protein 7.2 g/dL 6.4 - 8.4 07/12/2016 [facility] CHEM PANEL Calcium Lvl 9.2 mg/dL 8.5 - 10.5 07/12/2016 [facility] CHEM PANEL CO2 27 meq/L 24 - 32 07/12/2016 [facility] CHEM PANEL Chloride Lvl 104 meq/L 95 - 109 07/12/2016 [facility] CHEM PANEL Potassium Lvl 4.0 meq/L 3.5 - 5.1 07/12/2016 [facility] CHEM PANEL BUN 14 mg/dL 7 - 22 07/12/2016 [facility] CHEM PANEL Creatinine Lvl 0.57 mg/dL 0.50 - 1.40 07/12/2016 [facility] CHEM PANEL Sodium Lvl 138 meq/L 135 - 145 07/12/2016 [facility] HEMATOLOGY Basophils 0.3 % 0.0 - 1.0 07/12/2016 [facility] HEMATOLOGY Lymphocytes 18.3 % 20.0 - 40.0 07/12/2016 [facility] HEMATOLOGY Segs 68.9 % 45.0 - 75.0 07/12/2016 [facility] HEMATOLOGY Eosinophils 4.4 % 0.0 - 4.0 07/12/2016 [facility] HEMATOLOGY Monocytes 8.1 % 2.0 - 12.0 07/12/2016 [facility] HEMATOLOGY Monocytes # 0.9 K/CMM 0.0 - 0.8 07/12/2016 [facility] HEMATOLOGY Lymphocytes # 1.9 K/CMM 1.0 - 5.5 07/12/2016 [facility] HEMATOLOGY Eosinophils # 0.5 K/CMM 0.0 - 0.5 07/12/2016 [facility] HEMATOLOGY Segs-Bands # 7.3 K/CMM 1.5 - 8.1 07/12/2016 [facility] HEMATOLOGY MPV 7.8 fL 7.4 - 10.4 07/12/2016 [facility] HEMATOLOGY Platelet 242 K/CMM 133 - 450 07/12/2016 [facility] HEMATOLOGY MCH 29.2 pg 27.0 - 31.0 07/12/[address] [facility] MCV 86.1 fL 80.0 - 98.0 07/12/[address] [facility] RDW 14.2 % 11.5 - 14.5 07/12/[address] [facility] MCHC 33.9 g/dL 32.0 - 36.0 07/12/[address] [facility] WBC 10.6 K/CMM 3.7 - 10.4 07/12/[address] [facility] RBC 3.82 M/CMM 4.20 - 5.40 07/12/[address] [facility] Hct 32.9 % 36.0 - 48.0 07/12/[address] [facility] Hgb 11.1 g/dL 12.0 - 16.0 07/12/2016 [facility] age age EXAMINATION: age CLINICAL: Vaginal Bleeding - for well being COMPARISON: No prior exam. COMMENTS: 1. Single 2. Live . 3. Presentation: Transverse 4. heart rate: 142 bpm. 5. CAMELIA=qualitative normal 6. Placenta: A. Position: Anterior B. Grade I C. No previa or abruptio. 7. Morphology: Not evaluated on this exam. 8. Cervix closed and approximately 4.5 cm in length. 9. Biometry: BPD 4.1 cm=18 weeks 2 days HC 15.1 cm=18 weeks 1 day AC 12.5 cm=18 weeks 1 day FL 2.6 cm=17 weeks 6 days RATIOS (%): FL/AC 20.83 (20-24). FL/BPD 64.14 (71-87). HC/AC 1.21 ( 1.08-1.27 ). CI 75.5 (70-86). OML=288.65 gm . CLINICAL: ULTRASOUND: MA: 18 weeks 1 day ARNALDO: 12/12/2016 IMPRESSION: Single viable intrauterine gestation in transverse presentation with estimated gestational age of 18 weeks 1 day and estimated date of delivery of 12/12/2016. SL: NADIRA 07/12/2016 - - Read by: Crow Gardner MD Dictated Date/time: 07/12/16 18:16 Electronically Signed by: Crow Gardner MD 07/12/16 18:20 FINAL REPORT [facility] URINE AND STOOL UA RBC 1 /HPF 0 - 2 05/20/2016 [facility] URINE AND STOOL UA WBC 1 /HPF 0 - 5 05/20/2016 [facility] URINE AND STOOL UA Bacteria Occasional /HPF None Seen /HPF 05/20/2016 [facility] URINE AND STOOL UA Mucus Few /LPF None Seen /LPF 05/20/2016 [facility] URINE AND STOOL UA Spec Grav 1.011 <=1.030 05/20/2016 [facility] URINE AND STOOL UA Turbidity Clear (05/19/16 11:09 PM) Clear 05/20/2016 [facility] URINE AND STOOL UA Urobilinogen <=1.0 mg/dL 0.1 - 1.0 05/20/2016 [facility] URINE AND STOOL UA Color Ltyellow 05/20/2016 [facility] URINE AND STOOL UA Protein Negative mg/dL Negative mg/dL 05/20/2016 [facility] URINE AND STOOL UA Bili Negative *NA* (05/19/16 11:09 PM) Negative 05/20/2016 [facility] URINE AND STOOL UA pH 6.0 5.0 - 8.0 05/20/2016 [facility] URINE AND STOOL UA Ketones 80 mg/dL Negative mg/dL 05/20/2016 [facility] URINE AND STOOL UA Glucose Negative mg/dL Negative mg/dL 05/20/2016 [facility] URINE AND STOOL UA Nitrite Negative (05/19/16 11:09 PM) Negative 05/20/2016 [facility] URINE AND STOOL UA Blood Negative (05/19/16 11:09 PM) Negative 05/20/2016 [facility] URINE AND STOOL UA Sq Epi Few /LPF Few /LPF 05/20/2016 [facility] URINE AND STOOL UA Leuk Est Negative (05/19/16 11:09 PM) Negative 05/20/2016 [facility] CHEM PANEL Magnesium Lvl 2.1 mg/dL 1.8 - 2.4 05/20/2016 [facility] CHEM PANEL Globulin 3.8 g/dL 2.7 - 4.2 05/20/2016 [facility] CHEM PANEL A/G Ratio 0.9 0.7 - 1.6 05/20/2016 [facility] CHEM PANEL AGAP 13.1 meq/L 10.0 - 20.0 05/20/2016 [facility] CHEM PANEL B/C Ratio 24 6 - 25 05/20/2016 [facility] CHEM PANEL eGFR 133 mL/min/1.73m2 05/20/2016 Result Comment: The eGFR is calculated using the [...] from the National Kidney Disease Education Program (NKDEP) which additionally recommends that when the eGFR is used in patients with extremes of body mass index for purposes of drug dosing, the eGFR should be multiplied by the estimated BMI. [facility] CHEM PANEL Total Protein 7.4 g/dL 6.4 - 8.4 05/20/2016 [facility] CHEM PANEL Albumin Lvl 3.6 g/dL 3.5 - 5.0 05/20/2016 [facility] CHEM PANEL ALT 16 unit/L 0 - 65 05/20/2016 [facility] CHEM PANEL AST 16 unit/L 0 - 37 05/20/2016 [facility] CHEM PANEL Alk Phos 41 unit/L 39 - 136 05/20/2016 [facility] CHEM PANEL Bili Total 0.2 mg/dL 0.2 - 1.3 05/20/2016 [facility] CHEM PANEL Sodium Lvl 138 meq/L 135 - 145 05/20/2016 [facility] CHEM PANEL Potassium Lvl 4.1 meq/L 3.5 - 5.1 05/20/2016 [facility] CHEM PANEL Chloride Lvl 107 meq/L 95 - 109 05/20/2016 [facility] CHEM PANEL CO2 22 meq/L 24 - 32 05/20/2016 [facility] CHEM PANEL Calcium Lvl 9.1 mg/dL 8.5 - 10.5 05/20/2016 [facility] CHEM PANEL BUN 13 mg/dL 7 - 22 05/20/2016 [facility] CHEM PANEL Creatinine Lvl 0.54 mg/dL 0.50 - 1.40 05/20/2016 [facility] CHEM PANEL Glucose Lvl 80 mg/dL 70 - 99 05/20/2016 [facility] CHEM PANEL Lipase Lvl 107 unit/L 73 - 393 05/20/2016 [facility] ENDOCRINOLOGY hCG Tot [id number] mIU/mL 05/20/2016 [facility] HEMATOLOGY MPV 8.4 fL 7.4 - 10.4 05/20/2016 [facility] HEMATOLOGY Platelet 224 K/CMM 133 - 450 05/20/2016 [facility] HEMATOLOGY MCH 28.1 pg 27.0 - 31.0 05/20/2016 [facility] HEMATOLOGY RDW 13.5 % 11.5 - 14.5 05/20/2016 [facility] HEMATOLOGY MCHC 33.3 g/dL 32.0 - 36.0 05/20/2016 [facility] HEMATOLOGY WBC 13.4 K/CMM 3.7 - 10.4 05/20/2016 [facility] HEMATOLOGY Hct 36.0 % 36.0 - 48.0 05/20/2016 [facility] HEMATOLOGY RBC 4.25 M/CMM 4.20 - 5.40 05/20/2016 [facility] HEMATOLOGY MCV 84.6 fL 80.0 - 98.0 05/20/2016 [facility] HEMATOLOGY Hgb 12.0 g/dL 12.0 - 16.0 05/20/2016 [facility] HEMATOLOGY Segs 74.0 % 45.0 - 75.0 05/20/2016 [facility] HEMATOLOGY Lymphocytes # 1.9 K/CMM 1.0 - 5.5 05/20/2016 [facility] HEMATOLOGY Monocytes # 0.8 K/CMM 0.0 - 0.8 05/20/2016 [facility] HEMATOLOGY Eosinophils # 0.7 K/CMM 0.0 - 0.5 05/20/2016 [facility] HEMATOLOGY Eosinophils 5.4 % 0.0 - 4.0 05/20/2016 [facility] HEMATOLOGY Lymphocytes 14.5 % 20.0 - 40.0 05/20/2016 [facility] HEMATOLOGY Basophils 0.4 % 0.0 - 1.0 05/20/2016 [facility] HEMATOLOGY Monocytes 5.7 % 2.0 - 12.0 05/20/2016 [facility] HEMATOLOGY Segs-Bands # 9.9 K/CMM 1.5 - 8.1 05/20/2016 [facility] BLOOD BANK RESULTS ABO/Rh O POS 09/18/2015 [facility] ELECTROLYTES Sodium Lvl 139 meq/L 135 - 145 09/18/2015 [facility] ELECTROLYTES Potassium Lvl 4.2 meq/L 3.5 - 5.1 09/18/2015 [facility] ELECTROLYTES Chloride Lvl 106 meq/L 95 - 109 09/18/2015 [facility] ELECTROLYTES CO2 25 meq/L 24 - 32 09/18/2015 [facility] ELECTROLYTES Glucose Lvl 107 mg/dL 70 - 99 09/18/2015 [facility] ELECTROLYTES Calcium Lvl 8.7 mg/dL 8.5 - 10.5 09/18/2015 [facility] ELECTROLYTES Creatinine Lvl 0.84 mg/dL 0.50 - 1.40 09/18/2015 [facility] ELECTROLYTES Albumin Lvl 3.8 g/dL 3.5 - 5.0 09/18/2015 [facility] ELECTROLYTES BUN 13 mg/dL 7 - 22 09/18/2015 [facility] ELECTROLYTES ALT 17 unit/L 0 - 65 09/18/2015 [facility] ELECTROLYTES AST 17 unit/L 0 - 37 09/18/2015 [facility] ELECTROLYTES Total Protein 7.8 g/dL 6.4 - 8.4 09/18/2015 [facility] ELECTROLYTES eGFR 98 mL/min/1.73m2 09/18/2015 Result Comment: The eGFR is calculated using the [...] from the National Kidney Disease Education Program (NKDEP) which additionally recommends that when the eGFR is used in patients with extremes of body mass index for purposes of drug dosing, the eGFR should be multiplied by the estimated BMI. [facility] ELECTROLYTES Bili Total 0.3 mg/dL 0.2 - 1.3 09/18/2015 [facility] ELECTROLYTES Alk Phos 58 unit/L 39 - 136 09/18/2015 [facility] ELECTROLYTES Globulin 4.0 g/dL 2.0 - 4.0 09/18/2015 [facility] ELECTROLYTES A/G Ratio 1.0 0.7 - 1.6 09/18/2015 [facility] ELECTROLYTES AGAP 12.2 meq/L 10.0 - 20.0 09/18/2015 [facility] ELECTROLYTES B/C Ratio 15 6 - 25 09/18/2015 [facility] ENDOCRINOLOGY hCG Tot null 09/18/2015 [facility] HEMATOLOGY MPV 8.3 fL 7.4 - 10.4 09/18/2015 [facility] HEMATOLOGY Platelet 262 K/CMM 133 - 450 09/18/[address] [facility] Hgb 12.8 g/dL 12.0 - 16.0 09/18/2015 [facility] HEMATOLOGY RBC 4.52 M/CMM 4.20 - 5.40 09/18/[address] [facility] WBC 10.1 K/CMM 3.7 - 10.4 09/18/[address] [facility] MCHC 32.7 g/dL 32.0 - 36.0 09/18/[address] [facility] MCV 86.9 fL 80.0 - 98.0 09/18/[address] [facility] RDW 14.2 % 11.5 - 14.5 09/18/[address] [facility] MCH 28.4 pg 27.0 - 31.0 09/18/[address] [facility] Hct 39.3 % 36.0 - 48.0 09/18/2015 [facility] HEMATOLOGY Basophils # 0.1 K/CMM 0.0 - 0.2 09/18/2015 [facility] HEMATOLOGY Eosinophils # 0.4 K/CMM 0.0 - 0.5 09/18/2015 [facility] HEMATOLOGY Segs-Bands # 6.3 K/CMM 1.5 - 8.1 09/18/[address] [facility] Lymphocytes # 2.5 K/CMM 1.0 - 5.5 09/18/[address] [facility] Basophils 0.6 % 0.0 - 1.0 09/18/[address] [facility] Monocytes # 0.8 K/CMM 0.0 - 0.8 09/18/[address] [facility] Monocytes 7.7 % 2.0 - 12.0 09/18/[address] [facility] Lymphocytes 25.1 % 20.0 - 40.0 09/18/2015 [facility] HEMATOLOGY Segs 62.4 % 45.0 - 75.0 09/18/2015 [facility] HEMATOLOGY Eosinophils 4.2 % 0.0 - 4.0 09/18/2015 [facility] URINE AND STOOL UA Urobilinogen <=1.0 mg/dL 0.1 - 1.0 09/18/2015 [facility] URINE AND STOOL UA Color Ltyellow 09/18/2015 [facility] URINE AND STOOL UA Spec Grav 1.005 <=1.030 09/18/2015 [facility] URINE AND STOOL UA Turbidity Clear (09/18/15 5:22 PM) Clear 09/18/2015 [facility] URINE AND STOOL UA pH 5.0 5.0 - 8.0 09/18/2015 [facility] URINE AND STOOL UA Glucose Negative mg/dL Negative mg/dL 09/18/2015 [facility] URINE AND STOOL UA Ketones Negative mg/dL Negative mg/dL 09/18/2015 [facility] URINE AND STOOL UA Bili Negative *NA* (09/18/15 5:22 PM) Negative 09/18/2015 [facility] URINE AND STOOL UA Protein Negative mg/dL Negative mg/dL 09/18/2015 [facility] URINE AND STOOL UA Blood Large *ABN* (09/18/15 5:22 PM) Negative 09/18/2015 [facility] URINE AND STOOL UA Leuk Est Negative (09/18/15 5:22 PM) Negative 09/18/2015 [facility] URINE AND STOOL UA Sq Epi Occasional /LPF Few /LPF 09/18/2015 [facility] URINE AND STOOL UA WBC 1 /HPF 0 - 5 09/18/2015 [facility] URINE AND STOOL UA RBC 8 /HPF 0 - 2 09/18/2015 [facility] URINE AND STOOL UA Bacteria Occasional /HPF None Seen /HPF 09/18/2015 [facility] URINE AND STOOL UA Nitrite Negative (09/18/15 5:22 PM) Negative 09/18/2015 [facility] URINE AND STOOL UA Trans Epi 2 /LPF <=0 /LPF 09/18/2015 [facility] URINE CHEM U Preg Negative (09/18/15 5:22 PM) Negative 09/18/2015 [facility] Spine cervical wo contrast CT Spine cervical wo contrast CT EXAM: CT CERVICAL SPINE WITHOUT CONTRAST DATE: 08/28/2015 11:18 PM CDT INDICATION: Pain Post Trauma neck pain. Fell. COMPARISON: TECHNIQUE: Volumetric CT acquisition of the cervical spine without contrast. Axial, sagittal and coronal reconstructions. IV contrast: None. DLP: mGy-cm FINDINGS: Swallowing motion artifact degrades image quality. No acute fracture or malalignment is identified. Prevertebral soft tissues are within normal limits. Partial opacification of the mastoid air cells. IMPRESSION: 1. No acute fracture or pathologic subluxation detected. SL: [id number] 08/29/2015 - - Read by: Suhas Hyatt MD Dictated Date/time: 08/29/15 01:11 Electronically Signed by: Suhas Hyatt MD 08/29/15 01:13 FINAL REPORT [facility] Brain wo contrast CT Brain wo contrast CT EXAM: CT BRAIN WITHOUT CONTRAST DATE: 08/28/2015 11:17 PM CDT INDICATION: Headache with Trauma COMPARISON: None. TECHNIQUE: Routine axial CT images of the brain were obtained. IV contrast: None. DLP: mGy-cm FINDINGS: Non-contrast images of the head demonstrate no edema, hemorrhage, mass lesion or other acute intracranial abnormality. Mejias-white matter distinction is preserved. The ventricles are normal. The basal cisterns and sulci are normal in size. The paranasal sinuses, orbits and mastoids are unremarkable. IMPRESSION: 1. No definite acute infarct or intracranial hemorrhage detected. If there is further concern for intracranial pathology or acute stroke, MRI of the brain may be performed for complete assessment. SL: [id number] 08/29/2015 - - Read by: Suhas Hyatt MD Dictated Date/time: 08/29/15 01:10 Electronically Signed by: Suhas Hyatt MD 08/29/15 01:13 FINAL REPORT [facility] MOLECULAR DIAGNOSTIC C trachomatis by Amp Det (APTIMA) Negative 4 *NA* (10/01/14 1:11 PM) Negative 10/01/2014 4Interpretive Data: The APTIMA assay is a target amplification nucleic acid probe test utilizing target capture for the qualitative detection and differentiation of ribosomal RNA from Chlamydia trachomatis to aid in the diagnosis of disease from symptomatic and asymptomatic individuals using the PANTHER System. This assay utilizes FDA cleared IVD reagents. Performance characteristics have been verified by the Molecular Diagnostic Laboratory within [facility]. The Molecular Diagnostic Laboratory is authorized under the Clinical Laboratory Improvement Amendments of 1988 (CLIA-88) to perform high complexity testing. [facility] MOLECULAR DIAGNOSTIC Source APTIMA Endocervix *NA* (10/01/14 1:11 PM) 10/01/2014 [facility] MOLECULAR DIAGNOSTIC N gonorrhea by Amp Det (APTIMA) Negative 3 *NA* (10/01/14 1:11 PM) Negative 10/01/2014 3Interpretive Data: The APTIMA assay is a target amplification nucleic acid probe test utilizing target capture for the qualitative detection and differentiation of ribosomal RNA from Neisseria gonorrhoeae to aid in the diagnosis of disease from symptomatic and asymptomatic individuals using the PANTHER System. This assay utilizes FDA cleared IVD reagents. Performance characteristics have been verified by the Molecular Diagnostic Laboratory within [facility]. The Molecular Diagnostic Laboratory is authorized under the Clinical Laboratory Improvement Amendments of 1988 (CLIA-88) to perform high complexity testing. [facility] MOLECULAR DIAGNOSTIC Source APTIMA Endocervix *NA* (10/01/14 1:11 PM) 10/01/2014 [facility] URINE AND STOOL UA Color Ltyellow 10/01/2014 [facility] URINE AND STOOL UA Urobilinogen <=1.0 mg/dL 0.1 - 1.0 10/01/2014 [facility] URINE AND STOOL UA Sq Epi Occasional /LPF Few /LPF 10/01/2014 [facility] URINE AND STOOL UA Leuk Est Negative (10/01/14 1:11 PM) Negative 10/01/2014 [facility] URINE AND STOOL UA Bacteria Occasional /HPF None Seen /HPF 10/01/2014 [facility] URINE AND STOOL UA RBC 1 /HPF 0 - 2 10/01/2014 [facility] URINE AND STOOL UA WBC 1 /HPF 0 - 5 10/01/2014 [facility] URINE AND STOOL UA Bili Negative *NA* (10/01/14 1:11 PM) Negative 10/01/2014 [facility] URINE AND STOOL UA Glucose Negative mg/dL Negative mg/dL 10/01/2014 [facility] URINE AND STOOL UA Ketones Negative mg/dL Negative mg/dL 10/01/2014 [facility] URINE AND STOOL UA Nitrite Negative (10/01/14 1:11 PM) Negative 10/01/2014 [facility] URINE AND STOOL UA Blood Negative (10/01/14 1:11 PM) Negative 10/01/2014 [facility] URINE AND STOOL UA Spec Grav 1.012 <=1.030 10/01/2014 [facility] URINE AND STOOL UA Protein Negative mg/dL Negative mg/dL 10/01/2014 [facility] URINE AND STOOL UA pH 5.0 5.0 - 8.0 10/01/2014 [facility] URINE AND STOOL UA Turbidity Clear (10/01/14 1:11 PM) Clear 10/01/2014 [facility] URINE CHEM U Preg Negative (10/01/14 1:11 PM) Negative 10/01/2014 [facility] CHEM PANEL Amylase Lvl 35 unit/L 25 - 115 10/01/2014 [facility] CHEM PANEL Lipase Lvl 73 unit/L 73 - 393 10/01/2014 [facility] CHEM PANEL Magnesium Lvl 2.0 mg/dL 1.8 - 2.4 10/01/2014 [facility] CHEM PANEL Globulin 3.6 g/dL 2.0 - 4.0 10/01/2014 [facility] CHEM PANEL B/C Ratio 18 6 - 25 10/01/2014 [facility] CHEM PANEL AGAP 9.0 meq/L 10.0 - 20.0 10/01/2014 [facility] CHEM PANEL A/G Ratio 1.0 0.7 - 1.6 10/01/2014 [facility] CHEM PANEL Potassium Lvl 4.0 meq/L 3.5 - 5.1 10/01/2014 [facility] CHEM PANEL Chloride Lvl 105 meq/L 95 - 109 10/01/2014 [facility] CHEM PANEL Sodium Lvl 140 meq/L 135 - 145 10/01/2014 [facility] CHEM PANEL eGFR 105 mL/min/1.73m2 10/01/2014 1Result Comment: The eGFR is calculated using [...] from the National Kidney Disease Education Program (NKDEP) which additionally recommends that when the eGFR is used in patients with extremes of body mass index for purposes of drug dosing, the eGFR should be multiplied by the estimated BMI. [facility] CHEM PANEL Glucose Lvl 92 mg/dL 70 - 99 10/01/2014 2Interpretive Data: Adult reference range values reflect the clinical guidelines of the [place] [employer]. [facility] CHEM PANEL BUN 14 mg/dL 7 - 22 10/01/2014 [facility] CHEM PANEL Bili Total 0.5 mg/dL 0.2 - 1.3 10/01/2014 [facility] CHEM PANEL Alk Phos 53 unit/L 39 - 136 10/01/2014 [facility] CHEM PANEL AST 15 unit/L 0 - 37 10/01/2014 [facility] CHEM PANEL Calcium Lvl 8.8 mg/dL 8.5 - 10.5 10/01/2014 [facility] CHEM PANEL CO2 30 meq/L 24 - 32 10/01/2014 [facility] CHEM PANEL Creatinine Lvl 0.8 mg/dL 0.5 - 1.4 10/01/2014 [facility] CHEM PANEL ALT 20 unit/L 0 - 65 10/01/2014 [facility] CHEM PANEL Albumin Lvl 3.7 g/dL 3.5 - 5.0 10/01/2014 [facility] CHEM PANEL Total Protein 7.3 g/dL 6.4 - 8.4 10/01/2014 [facility] ENDOCRINOLOGY S Preg Negative *NA* (10/01/14 11:26 AM) Negative 10/01/2014 [facility] HEMATOLOGY Monocytes # 0.7 K/CMM 0.0 - 0.8 10/01/2014 [facility] HEMATOLOGY Eosinophils # 0.3 K/CMM 0.0 - 0.5 10/01/2014 [facility] HEMATOLOGY Lymphocytes 27.6 % 20.0 - 40.0 10/01/[address] [facility] Monocytes 7.7 % 2.0 - 12.0 10/01/2014 [facility] HEMATOLOGY Segs 60.5 % 45.0 - 75.0 10/01/2014 [facility] HEMATOLOGY Segs-Bands # 5.3 K/CMM 1.5 - 8.1 10/01/[address] [facility] Lymphocytes # 2.4 K/CMM 1.0 - 5.5 10/01/[address] [facility] Eosinophils 4.0 % 0.0 - 4.0 10/01/2014 [facility] HEMATOLOGY Basophils 0.2 % 0.0 - 1.0 10/01/2014 [facility] HEMATOLOGY Hct 39.5 % 36.0 - 48.0 10/01/[address] [facility] MCH 29.7 pg 27.0 - 31.0 10/01/[address] [facility] MCV 86.6 fL 80.0 - 98.0 10/01/2014 [facility] HEMATOLOGY RDW 13.0 % 11.5 - 14.5 10/01/[address] [facility] MCHC 34.3 g/dL 32.0 - 36.0 10/01/2014 [facility] HEMATOLOGY MPV 8.0 fL 7.4 - 10.4 10/01/2014 [facility] HEMATOLOGY Platelet 236 K/CMM 133 - 450 10/01/[address] [facility] WBC 8.7 K/CMM 3.7 - 10.4 10/01/[address] [facility] Hgb 13.5 g/dL 12.0 - 16.0 10/01/2014 [facility] HEMATOLOGY RBC 4.56 M/CMM 4.20 - 5.40 10/01/2014 [facility] IMMUNOLOGY [facility] HIV 4th GEN Negative (10/01/14 11:26 AM) Negative 10/01/2014 [facility] ED Abdomen/Pelvis IV contrast only CT ED Abdomen/Pelvis IV contrast only CT CT Abdomen with Contrast, CT Pelvis with Contrast: TECHNIQUE: Contiguous transaxial images of the abdomen and pelvis were performed from the lung bases to the superior pubic rami with IV contrast. Oral contrast was not administered COMPARISON: No prior CLINICAL HX: Abdomen pain CT ABDOMEN: Lower Chest: The lung bases are clear. GI Tract: Appendix is not visualized. There is no evidence for free fluid or free air in the abdomen. Tract and retroperitoneum: The kidneys demonstrate normal morphology and symmetric excretion. No significant retroperitoneal lymphadenopathy is noted. Abdominal viscera: The liver, spleen, pancreas, both adrenals, and the gallbladder demonstrate normal morphology. Vasculature: Aorta demonstrates normal morphology Bone and Soft tissues: No significant bony abnormality is noted. CT PELVIS: The bladder and uterus demonstrate normal morphology. 2.1 cm cystic focus is visualized in the right adnexa. Small amount of free fluid is present in the cul-de-sac IMPRESSION: Probable right ovarian cyst. Small amount of free fluid is present in the cul-de-sac. Further evaluation may be obtained with pelvic and transvaginal sonography for confirmation. Nonvisualization of the appendix. No other significant abnormality is noted on the contrast CT of the abdomen or pelvis. SL:13 10/01/2014 - - Read by: Chay Sagastume MD Dictated Date/time: 10/01/14 14:10 Electronically Signed by: Chay Sagastume MD 10/01/14 14:18 FINAL REPORT [facility] Vital Signs Vital Sign Value Date Comments Source Respitory Rate 20 09/21/2017 [facility] Systolic (mm Hg) 120 09/21/2017 [facility] Diastolic (mm Hg) 70 09/21/2017 [facility] Temperature Oral (F) 98.7 F 09/21/2017 [facility] Heart Rate 70 09/21/2017 [facility] Heart Rate 75 09/20/2017 [facility] Systolic (mm Hg) 116 09/20/2017 [facility] Diastolic (mm Hg) 68 09/20/2017 [facility] BMI Calculated 24.61 09/20/2017 [facility] Temperature Oral (F) 99.8 F 09/20/2017 [facility] Respitory Rate 18 09/20/2017 [facility] Weight 59.091 09/20/2017 [facility] Height 154.94 cm 09/20/2017 [facility] Heart Rate 78 07/08/2017 [facility] Respitory Rate 14 07/08/2017 [facility] Temperature Oral (F) 98.1 F 07/08/2017 [facility] Systolic (mm Hg) 116 07/08/2017 [facility] Diastolic (mm Hg) 82 07/08/2017 [facility] Weight 54.545 07/08/2017 [facility] BMI Calculated 22.72 07/08/2017 [facility] Height 154.94 cm 07/08/2017 [facility] Temperature Oral (F) 98.3 F 07/08/2017 [facility] Respitory Rate 16 07/08/2017 [facility] Heart Rate 68 07/08/2017 [facility] Systolic (mm Hg) 134 07/08/2017 [facility] Diastolic (mm Hg) 84 07/08/2017 [facility] BMI Calculated 25.94 09/15/2016 [facility] Weight 62.273 09/15/2016 [facility] Systolic (mm Hg) 117 09/15/2016 [facility] Diastolic (mm Hg) 83 09/15/2016 [facility] Heart Rate 91 09/15/2016 [facility] Temperature Oral (F) 98.4 F 09/15/2016 [facility] Respitory Rate 18 09/15/2016 [facility] Height 154.94 cm 09/15/2016 [facility] Respitory Rate 17 07/12/2016 [facility] Heart Rate 86 07/12/2016 [facility] Temperature Oral (F) 98.1 F 07/12/2016 [facility] Systolic (mm Hg) 123 07/12/2016 [facility] Diastolic (mm Hg) 66 07/12/2016 [facility] Systolic (mm Hg) 120 07/12/2016 [facility] Diastolic (mm Hg) 74 07/12/2016 [facility] Heart Rate 91 07/12/2016 [facility] Respitory Rate 18 07/12/2016 [facility] Temperature Oral (F) 98.3 F 07/12/2016 [facility] Height 154.94 cm 07/12/2016 [facility] BMI Calculated 23.67 07/12/2016 [facility] Weight 56.818 07/12/2016 [facility] Respitory Rate 18 05/20/2016 [facility] Heart Rate 83 05/20/2016 [facility] Systolic (mm Hg) 127 05/20/2016 [facility] Diastolic (mm Hg) 83 05/20/2016 [facility] Temperature Oral (F) 98.2 F 05/20/2016 [facility] Weight 55.909 05/20/2016 [facility] BMI Calculated 23.29 05/20/2016 [facility] Height 154.94 cm 05/20/2016 [facility] Respitory Rate 18 09/19/2015 [facility] Systolic (mm Hg) 119 09/19/2015 [facility] Diastolic (mm Hg) 76 09/19/2015 [facility] Heart Rate 84 09/19/2015 [facility] Temperature Oral (F) 98.3 F 09/19/2015 [facility] Height 154.94 cm 09/18/2015 [facility] Systolic (mm Hg) 123 09/18/2015 [facility] Diastolic (mm Hg) 80 09/18/2015 [facility] Heart Rate 73 09/18/2015 [facility] Respitory Rate 18 09/18/2015 [facility] Temperature Oral (F) 98.1 F 09/18/2015 [facility] BMI Calculated 23.67 09/18/2015 [facility] Weight 56.818 09/18/2015 [facility] Respitory Rate 18 08/29/2015 [facility] Heart Rate 98 08/29/2015 [facility] Systolic (mm Hg) 136 08/29/2015 [facility] Diastolic (mm Hg) 86 08/29/2015 [facility] Temperature Oral (F) 98.0 F 08/29/2015 [facility] Temperature Oral (F) 98.8 F 08/29/2015 [facility] Respitory Rate 18 08/29/2015 [facility] Heart Rate 98 08/29/2015 [facility] Systolic (mm Hg) 146 08/29/2015 [facility] Diastolic (mm Hg) 86 08/29/2015 [facility] Systolic (mm Hg) 143 08/29/2015 [facility] Diastolic (mm Hg) 84 08/29/2015 [facility] Heart Rate 96 08/29/2015 [facility] Respitory Rate 18 08/29/2015 [facility] Height 154.94 cm 08/29/2015 [facility] Temperature Oral (F) 98.9 F 08/29/2015 [facility] BMI Calculated 21.77 08/29/2015 [facility] Weight 52.273 08/29/2015 [facility] Heart Rate 94 08/09/2015 [facility] Respitory Rate 20 08/09/2015 [facility] Systolic (mm Hg) 121 08/09/2015 [facility] Diastolic (mm Hg) 64 08/09/2015 [facility] Temperature Oral (F) 98.8 F 08/09/2015 [facility] Height 154.94 cm 08/09/2015 [facility] BMI Calculated 23.67 08/09/2015 [facility] Weight 56.818 08/09/2015 [facility] Temperature Oral (F) 99.6 F 08/09/2015 [facility] Respitory Rate 20 08/09/2015 [facility] Heart Rate 104 08/09/2015 [facility] Systolic (mm Hg) 127 08/09/2015 [facility] Diastolic (mm Hg) 84 08/09/2015 [facility] Respitory Rate 18 10/01/2014 [facility] Systolic (mm Hg) 94 10/01/2014 [facility] Diastolic (mm Hg) 57 10/01/2014 [facility] Heart Rate 64 10/01/2014 [facility] Temperature Oral (F) 98.7 F 10/01/2014 [facility] Weight 56.818 10/01/2014 [facility] Temperature Oral (F) 98.5 F 10/01/2014 [facility] Height 154.94 cm 10/01/2014 [facility] BMI Calculated 23.67 10/01/2014 [facility] Systolic (mm Hg) 125 10/01/2014 [facility] Diastolic (mm Hg) 78 10/01/2014 [facility] Heart Rate 80 10/01/2014 [facility] Respitory Rate 18 10/01/2014 [facility] Respitory Rate 22.0 03/14/2011 [facility] Systolic (mm Hg) 118.0 03/14/2011 [facility] Heart Rate 70.0 03/14/2011 [facility] Diastolic (mm Hg) 64.0 03/14/2011 [facility] Weight 52.273 03/14/2011 [facility] Height 157.48 cm 03/14/2011 [facility] Respitory Rate 18.0 03/14/2011 [facility] Temperature Oral (F) 98.1 F 03/14/2011 [facility] Diastolic (mm Hg) 62.0 03/14/2011 [facility] Heart Rate 84.0 03/14/2011 [facility] Systolic (mm Hg) 118.0 03/14/2011 [facility] Encounters Location Location Details Encounter Type Encounter Number Reason For Visit Attending Provider ADM Date DC Date Status Source [facility] Emergency [id number] LOWER EXTREMITY INJURY MAURICIO DAVILA 03/14/2011 03/14/2011 Active [facility] [id number] Mj Tyson 10/01/2014 10/01/2014 [facility] [id number] Javi Joshi 08/09/2015 08/09/2015 [facility] [id number] Diane Tee 08/29/2015 08/29/2015 [facility] [id number] Benny Fernandez 09/18/2015 09/19/2015 [facility] [id number] Jonnie Newby 05/20/2016 05/20/2016 [facility] [id number] Jose Tovar 07/12/2016 07/13/2016 [facility] [id number] Elise Tran 09/15/2016 09/15/2016 [facility] [id number] Dylan Abreu 07/08/2017 07/08/2017 [facility] [id number] Peter Macias 09/20/2017 09/21/2017 [facility] Procedures Procedure Code Date Perfomer Comments Source
[2018-05-07] MEDS ORDERED: ONDANSETRON HCL 4 MG ORAL DISINTEGRATING TAB ONE (22:00)
[2018-05-07] MEDS ORDERED: ONDANSETRON HCL 4 MG ORAL DISINTEGRATING TAB PO ONE (22:00)
[2018-05-07 22:45] LABS: COLOR,URINE YELLOW (YELLOW); LEUKOCYTE ESTERASE ,URINE NEGATIVE (NEGATIVE); NITRITE,URINE NEGATIVE (NEGATIVE); PROTEIN,URINE DIPSTICK NEGATIVE (NEGATIVE)
[2018-05-07 22:46] LABS: BILIRUBIN,URINE NEGATIVE (NEGATIVE); CLARITY,URINE SL CLOUDY (CLEAR); KETONES,URINE NEGATIVE (NEGATIVE); URINE UROBILINOGEN 0.2 mg/dL (0.2 - 1)
[2018-05-07 22:47] LABS: BACTERIA,URINE MODERATE /HPF; WBC,URINE (MAN) 0-5 /HPF (0-5)
[2018-05-07 22:48] LABS: EPITHELIAL CELLS,URINE MODERATE /LPF; MUCUS,URINE MANY (RARE)
== END 2018-05-08 00:44 | disposition home or self-care (01) ==
LOC: ER 20:44
DX: R11.2 Nausea with vomiting, unspecified (principal); A08.4 Viral intestinal infection, unspecified
CPT/HCPCS: 81001; 81025; 99283; Q0162

== ENCOUNTER 2019-04-13 10:50 | Emergency (ER) | payer BC ==
[~2019-04-13] VITALS: Ht 154.9 cm; Wt 59.4 kg
== END 2019-04-13 14:08 | disposition home or self-care (01) ==
LOC: ER 10:50
DX: H10.023 Other mucopurulent conjunctivitis, bilateral (principal)
CPT/HCPCS: 99283

== ENCOUNTER 2019-12-07 20:47 | Emergency (ER) | payer BC ==
[~2019-12-07] VITALS: Ht 154.9 cm; Wt 59.4 kg
[2019-12-07] MEDS ORDERED: TETRACAINE HCL 0.5% OPTH SOLN 4 ML BTL ONE (21:38)
--- NOTE | 2019-12-07 21:44 | Emergency Department Note ---
History of Present Illnes History of Present Illness Chief Complaint: Eye, Ear, Nose, Throat, Dental History of Present Illness This is a 29 year old female Chief Complaint Comment 29 Y/O FEMALE PT AAOX3 REPORTS PAIN TO RIGHT EAR X2 DAYS, PT DENIES ANY DRAINAGE, NO EDEMA OR REDNESS NOTED; PT DENIES ANY FURTHER ABNORMAL S/S. No recent cold, rhinorrhea, etc. She thinks it may be a black head. Historian: Patient Arrival Mode: Car [employer] Controller Required: No Onset (how long ago): day(s) (2) Location: R ear Quality: Sharp Radiation: Reports other (Jaw) Severity: moderate Onset quality: sudden Duration (how long): day(s) (2) Progression: unchanged Chronicity: new Context: Denies recent illness Relieving factors: none Exacerbating factors: none Treatments prior to arrival: none Past Medical/Family History Physician Review I have reviewed the patient's past medical and family history. Any updates have been documented here. Past Medical History Recent Fever: No Clinical Suspicion of Infectio: No New/Unexplained Change in Ment: No Past Medical History: None Past Surgical History: Social History Smoking Cessation: Never Smoker Counseling Performed: No Alcohol Use: None Any Illegal Drug Use: No Other Last Tetanus: UTD Any Pre-Existing Lines (PICC,: No Review of Systems Review of Systems Constitutional: Reports no symptoms EENTM: Reports no symptoms, Reports ear pain (R) Cardiovascular: Reports no symptoms Respiratory: Reports no symptoms Gastrointestinal: Reports no symptoms Genitourinary: Reports no symptoms Musculoskeletal: Reports no symptoms Integumentary: Reports no symptoms Neurological: Reports no symptoms Psychological: Reports no symptoms Endocrine: Reports no symptoms Hematological/Lymphatic: Reports no symptoms Physical Exam Related Data Allergies: Coded Allergies: butorphanol (Verified Allergy, Intermediate, 05/07/18) egg (Verified Allergy, Intermediate, 05/07/18) Triage Vital Signs Vital Signs Date Time Temp Pulse Resp B/P (MAP) Pulse Ox O2 Delivery O2 Flow Rate FiO2 12/07/19 21:30 98.1 73 16 104/85 100 Room Air Vital signs reviewed: Yes Physical Exam CONSTITUTIONAL Constitutional: Present well-developed, Present well-nourished HENT HENT: Present normocephalic, Present atraumatic, Present oropharynx clear/moist, Present nose normal HENT L/R: Present left TM normal, Present right TM normal, Present left canal normal, Present right canal normal, Present left ext ear normal, Present right ext ear normal, Present other (Tenderness with inspection of R EAC, no signs of erythema or infection) EYES Eyes: Reports PERRL, Reports conjunctivae normal NECK Neck: Present ROM normal PULMONARY Pulmonary: Present effort normal, Present breath sounds normal CARDIOVASCULAR Cardiovascular: Present regular rhythm, Present heart sounds normal, Present capillary refill normal, Present normal rate GASTROINTESTINAL Abdominal: Present soft, Present nontender, Present bowel sounds normal GENITOURINARY Genitourinary: Present exam deferred SKIN Skin: Present warm, Present dry MUSCULOSKELETAL Musculoskeletal: Present ROM normal NEUROLOGICAL Neurological: Present alert, Present oriented x 3, Present no gross motor or sensory deficits PSYCHOLOGICAL Psychological: Present mood/affect normal, Present judgement normal Assessment & Plan Medical Decision Making MDM 29-year-old female presenting for right-sided ear pain. The pain is limited to the external auditory canal does radiate down the right side of her jaw. She states she has not been swimming and thinks that this is a pimple in her ear canal. No recent infection. Examination shows overall normal appearing external auditory canals and tympanic membranes bilaterally. No signs of erythema or infection. No signs of chest swimmer's ear. I discussed results patient and she was given drops of tetracaine in the emergency department for pain which markedly improved her symptoms. Doubt emergent process at this time. I discussed results patient as well as expected disease time course and management. They will follow up with their primary care provider or return to the emergency department for new or worsening symptoms. Patient's appropriate for discharge. Part of this note was dictated with Marycarmen and is subject to recognition errors. Reassessment Reassessment time: 21:43 Reassessment Well appearing, NAD Assessment & Plan Final Impression: (1) Acute ear pain Depart Disposition: HOME, SELF-CARE Last Vital Signs Date Time Temp Pulse Resp B/P (MAP) Pulse Ox O2 Delivery O2 Flow Rate FiO2 12/07/19 21:30 98.1 73 16 104/85 100 Room Air Medications in the ED Tetracaine HCl 4 ml STK-MED ONCE .ROUTE ; Start 12/07/19 at 21:38; Stop 12/07/19 at 21:33; Status DC TAMMY FERNANDES MD Dec 07, 2019 21:44
--- OUTSIDE RECORDS SUMMARY | 2019-12-07 21:44 | XMS REPORT | Continuity of Care Document ---
Author Author Maria Teresa [place] [employer] Access JAMMIE Oconnor Organization [employer] Address Unknown Phone Unavailable Care Team [facility] Associate Name Role Phone [employer] Unavailable Un available Problems Problem Status Onset Date Classification Date Reported Comments Source Dermatitis, unspecified 09/20/2017 09/23/2017 [facility] RASH Active 09/20/2017 [facility] Acute pharyngitis, unspecified 07/15/2017 10/14/2017 [facility] FLU LIKE SYMPTOMS Active 07/07/2017 [facility] state, incidental 09/15/2016 09/18/2016 [facility] LOWER ABDOMINAL PAIN Active 09/14/2016 [facility] VAG BLEED Active 07/12/2016 [facility] Threatened 07/12/2016 07/15/2016 [facility] Discharge Diagnosis: Hyperemesis gravidarum 05/19/2016 05/23/2016 [facility] PREG/VOMMITTING Active 05/19/2016 [facility] Discharge Diagnosis: Abnormal vaginal bleeding 09/18/2015 09/21/2015 [facility] PREG, PELVIC PAIN Active 09/18/2015 [facility] Discharge Diagnosis: Unspecified injury of head, initial encounter 08/29/2015 09/01/2015 [facility] Discharge Diagnosis: Streptococcal pharyngitis 08/08/2015 08/11/2015 [facility] Discharge Diagnosis: Acute lymphadenitis of face, head and neck 08/08/2015 08/11/2015 [facility] Discharge Diagnosis: Fever, unspecified 08/08/2015 08/11/2015 [facility] STREP THROAT Active 08/08/2015 [facility] Discharge Diagnosis: PID (pelvic inflammatory disease) 10/01/2014 10/04/2014 [facility] Discharge Diagnosis: Abdominal pain 10/01/2014 10/04/2014 [facility] Discharge Diagnosis: Acute vomiting 10/01/2014 10/04/2014 [facility] Discharge Diagnosis: Cyst, ovarian 10/01/2014 10/04/2014 [facility] ABD PAIN/VOMITING/NAUSEA Active 10/01/2014 [facility] HEAD PAIN OR INJURY Active 08/28/2012 [facility] LOWER EXTREMITY INJURY Active 03/14/2011 [facility] Medications Medication Details Route Status Patient Instructions Ordering Provider Order Date Source cetirizine hydrochloride 10 MG Oral Tablet [Zyrtec] 10 mg = 1 tab, PO, Daily, PRN Allergic reaction, # 10 tab, 0 Refill(s) Active 09/21/2017 [facility] {21 (Methylprednisolone 4 MG Oral Tablet [Medrol]) } Pack [Medrol Dosepak] See Instructions, PO, Take by mouth as d irected on label., # 1 Pack, 0 Refill(s) Active 09/21/2017 [facility] Dexamethasone 10 mg, 2.5 mL, R oute: IM, Drug form: INJ, ONCE, Dosing Weight 59.091, kg, Priority: STAT, Start date: 09/20/17 19:47:00 CDT, Stop date: 09/20/17 19:47:00 CDT Inactive 09/21/2017 [facility] Zofrgerald Notes: (Same as: Miracle ) MEDICATION WASTE Product Size: 4 mg Product Wasted: ___ mg Inactive 09/15/2016 [facility] Calcium Chloride 0.0014 MEQ/ML / Potassi um Chloride 0.004 MEQ/ML / Sodium Chloride 0.103 MEQ/ML / Sodium Lactate 0.028 MEQ/ML Injectable Solution 1,000 mL, 1,000 ml/hr, Infuse Over: 1 hr , Route: IV, 1,000, Drug form: INJ, ONCE, Priority: STAT, Dosing Weight 56.818 kg, Start date: 09/14/16 22:49:00 CDT, Duration: 1 doses or times, Stop date: 09/14/16 22:49:00 CDT Inactive 09/15/2016 [facility] Multivitamins with Folic Acid 0.4 mg oral kit 1 tab, PO, Daily, # 30 tab, 0 Refill(s) Active 05/20/2016 [facility] Metoclopramide 10 MG Oral Tablet [Reglan] 10 mg = 1 tab, PO, QID-Before Meals, PRN nausea and vomiting, X 10 day, # 40 tab, 0 Refill(s) Active 05/20/2016 [facility] Metoclopramide Notes: (Same as : Reglan) Inactive 05/20/2016 [facility] Sodium Chloride 0.154 MEQ/ML Injectable Solution 1,000 mL, 1000 ml/hr, Infuse Over: 1 hr, Route: IV, 1,000, Drug form: INJ, ONCE, Priority: STAT, Dosing Weight 55.909 kg, 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, Duration: 1 doses or times, Stop date: 05/19/16 20:19:00 TECHNICAL SERVICE SPECIALIST Inactive 05/20/2016 [facility] Saline Flush 0.9% Notes: (Same as: BD Posiflush) No Longer Active 05/20/2016 [facility] ibuprofen 800 mg oral tablet 8 00 mg = 1 tab, PO, Q6H, PRN Fever or Pain, Take with food, # 40 tab, 0 Refill(s) Active 09/19/2015 [facility] Saline Flush 0.9% Notes: (Same as: BD Posiflush) Inactive 09/18/2015 [facility] Zofran ODT 4 mg, Route: PO, Dr ug form: TABDIS, ONCE, Dosing Weight 52.273, kg, Priority: STAT, Start date: 08/29/15 1:14:00 CDT, Stop date: 08/29/15 1:14:00 CDT Inactive 08/29/2015 [facility] tramadol hydrochloride 50 MG Oral Tablet [Ultram] 100 mg = 2 tab, PO, Q6H, PRN pain, X 3 day, # 24 tab, 0 Refill(s) Active 08/29/2015 [facility] Ondansetron 4 MG Disintegrating Tablet [Zofran] 4 mg = 1 tab, PO, BID, PRN Nausea and Vomiting, Dissolve tab under tongue, X 2 day, # 4 tab, 0 Refill(s) No Longer Active 08/29/2015 [facility] Acetaminophen 325 MG / Hydrocodone Herman trate 10 MG Oral Tablet [Asher 10/325] 1 tab, Route: PO, Dosing Weight 52.273, kg, ONCE, Start date: 08/28/15 23:53:00 CDT, Stop date: 08/28/15 23:53:00 CDT Inactive 08/29/2015 [facility] Zofran 4 mg, Route: IVP, Drug form: INJ, ONCE, Dosing Weight 52.273, kg, Priority: STAT, Start date: 08/28/15 23:19:00 CDT, Stop date: 08/28/15 23:19:00 CDT Inactive 08/29/2015 [facility] Zofran ODT 4 mg, Route: PO, Dr zoey form: TABDIS, ONCE, Dosing Weight 52.273, kg, Priority: STAT, Start date: 08/28/15 23:18:00 CDT, Stop date: 08/28/15 23:18:00 CDT Inactive 08/29/2015 [facility] Morphine 4 mg, Route: IVP, ONC E, Dosing Weight 52.273, kg, Start date: 08/28/15 23:18:00 CDT, Stop date: 08/28/15 23:18:00 CDT Inactive 08/29/2015 [facility] Sodium Chloride 0.154 MEQ/ML Injectable Solution 1,000 mL, 1,000 ml/hr, Infuse Over: 1 hr, Route: IV, ONCE, Priority: STAT, Dosing Weight 52.273 kg, Start date: 08/28/15 23:18:00 CDT, Duration: 1 doses or times, Stop date: 08/28/15 23:18:00 CDT Inactive 08/29/2015 [facility] Acetaminophen 21.7 MG/ML / Hydrocodone B itartrate 0.5 MG/ML Oral Solution Notes: Do not exceed 4gm/day of acetamin ophen. (Same as: Asher 325/7.5) Inactive 08/09/2015 [facility] Tylenol with Codeine 120 mg-12 mg/5 mL oral liquid Notes: (acetaminophen-codeine 120-12 mg/5 ml oral liq) Do not exceed 4gm/day of acetaminophen. (Same as: Tylenol w/Codeine) Inactive 08/09/2015 [facility] Dexamethasone Notes: Concentra tion: 4mg/ml Inactive 08/09/2015 [facility] Bicillin L-A Notes: (penicilli n G benzathine 1.2 MilUnit/2 ml INJ) (Same as: Bicillin L-A, Permapen) NOT For Daily Use Inactive 08/09/2015 [facility] Ondansetron 4 MG Disintegrating Tablet Special Instructions: Dissolve tab under tongue Active 10/01/2014 [facility] doxycycline hyclate 100 mg oral tablet 100 mg = 1 tab, PO, Q12H, X 14 day, # 28 tab, 0 Refill(s) Active 10/01/2014 [facility] Acetaminophen 300 MG / Codeine Phosphate 30 MG Oral Tablet [Tylenol with Codeine #3] 1 - 2 tab, PO, Q4H, PRN Pain, X 2 day, # 20 tab, 0 Refill(s) No Longer Active 10/01/2014 [facility] Promethazine 25 mg, Route: IVP B, ONCE, Dosing Weight 56.818, kg, Priority: STAT, Start date: 10/01/14 14:03:00, Stop date: 10/01/14 14:03:00 Inactive 10/01/2014 [facility] Ketorolac 30 mg, Route: IVP, D rug form: INJ, ONCE, Dosing Weight 56.818, kg, Priority: STAT, Start date: 10/01/14 14:03:00, Stop date: 10/01/14 14:03:00 Inactive 10/01/2014 [facility] Ceftriaxone 1 gm, Route: IVPB, Drug form: PDR/INJ, ONCE, Dosing Weight 56.818, kg, Priority: STAT, Start date: 10/01/14 14:02:00, Stop date: 10/01/14 14:02:00 Inactive 10/01/2014 [facility] Sodium Chloride 0.154 MEQ/ML Injectable Solution 1,000 mL, 1000 ml/hr, Infuse Over: 1 hr, Route: IV, 1,000, Drug form: INJ, ONCE, Priority: STAT, Dosing Weight 56.818 kg, Start date: 10/01/14 11:08:00, Duration: 1 doses or times, Stop date: 10/01/14 11:08:00 Inactive 10/01/2014 [facility] Saline Flush 0.9% Notes: (Same as: BD Posiflush) Inactive 10/01/2014 [facility] Ondansetron Notes: (Same as: Sarabjit castillo) MEDICATION WASTE Product Size: 4 mg Product Wasted: ___ mg Inactive 10/01/2014 [facility] Famotidine Notes: (Same as: Pe pcid) Can be dilute in 5- 10cc NS IVP: Slow IV push over at least 2 minutes. Inactive 10/01/2014 [facility] Allergies, Adverse Reactions, Alerts Substance Category Reaction Severity Reaction type Status Date Reported Comments Source Stadol Assertion Drug allergy Active [facility] Immunizations No Data Provided for This Section Results Order Name Results Value Reference Range Date Interpretation Comments Source RAPID Grp A Strep Scr Negative (07/08/17 12:20 AM) Negative 07/08/2017 [facility] VIRAL - SEROLOGY Influ A Negative (07/08/17 12:20 AM) Negative 07/08/2017 [facility] VIRAL - SEROLOGY Influ B Negative (07/08/17 12:20 AM) Negative 07/08/2017 [facility] CHEM PANEL Fibronectin Negat ari (09/14/16 11:09 PM) Negative 09/15/2016 [facility] HEMATOLOGY Segs-Bands # 8.3 1.5 - 8.1 09/15/2016 [facility] HEMATOLOGY Basophils 0.1 0.0 - 1.0 09/15/2016 [facility] HEMATOLOGY Eosinophils 2.7 0.0 - 4.0 09/15/2016 [facility] HEMATOLOGY Monocytes 5.7 2.0 - 12.0 09/15/2016 [facility] HEMATOLOGY Lymphocytes 12.0 20.0 - 40.0 09/15/2016 [facility] HEMATOLOGY Eosinophils # 0.3 0.0 - 0.5 09/15/2016 [facility] HEMATOLOGY Monocytes # 0.6 0.0 - 0.8 09/15/[address] [facility] Lymphocytes # 1.3 1.0 - 5.5 09/15/2016 [facility] HEMATOLOGY Segs 79.5 45.0 - 75.0 09/15/[address] [facility] MCHC 34.8 32.0 - 36.0 09/15/[address] [facility] MCH 30.0 27.0 - 31.0 09/15/[address] [facility] MCV 86.1 80.0 - 98.0 09/15/[address] [facility] Hct 30.5 36.0 - 48.0 09/15/[address] [facility] Hgb 10.6 12.0 - 16.0 09/15/[address] [facility] MPV 7.6 7.4 - 10.4 09/15/[address] [facility] Platelet 217 133 - 450 09/15/[address] [facility] RDW 13.3 11.5 - 14.5 09/15/2016 [facility] HEMATOLOGY RBC 3.53 4.20 - 5.40 09/15/[address] [facility] WBC 10.4 3.7 - 10.4 09/15/2016 [facility] URINE AND STOOL UA Mucus Few /LPF None Seen /LPF 09/15/2016 [facility] URINE AND STOOL UA Leuk Est Negative (09/14/16 11:09 PM) Negative 09/15/2016 [facility] URINE AND STOOL UA WBC 2 0 - 5 09/15/2016 [facility] URINE AND STOOL UA RBC <1 0 - 2 09/15/2016 [facility] URINE AND STOOL UA Bili Negative *NA* (09/14/16 11:09 PM) Negative 09/15/2016 [facility] URINE AND STOOL UA Ketones 80 mg/dL Negative mg/dL 09/15/2016 [facility] URINE AND STOOL UA Blood Negative (09/14/16 11:09 PM) Negative 09/15/2016 [facility] URINE AND STOOL UA Nitrite Negative (09/14/16 11:09 PM) Negative 09/15/2016 [facility] URINE AND STOOL UA Sq Epi Occasional /LPF Few /LPF 09/15/2016 [facility] URINE AND STOOL UA Color Yellow *NA* (09/14/16 11:09 PM) Yellow 09/15/2016 [facility] URINE AND STOOL UA Spec Grav 1.019 <=1.030 09/15/2016 [facility] URINE AND STOOL UA Turbidity Clear (09/14/16 11:09 PM) Clear 09/15/2016 [facility] URINE AND STOOL UA Protein Negative mg/dL Negative mg/dL 09/15/2016 [facility] URINE AND STOOL UA pH 6.0 5.0 - 8.0 09/15/2016 [facility] URINE AND STOOL UA Glucose Negative mg/dL Negative mg/dL 09/15/[address] [facility] [address] URINE AND STOOL UA Urobilinogen <=1.0 mg/dL 0.1 - 1.0 09/15/2016 [facility] MOLECULAR DIAGNOSTIC N gonorrhea by Amp Det (APTIMA) Negative *NA* (07/12/16 6:40 PM) Negative 07/12/2016 [facility] MOLECULAR DIAGNOSTIC Source APTIMA Endocervix *NA* (07/12/16 6:40 PM) 07/12/2016 [facility] MOLECULAR DIAGNOSTIC C trachomatis b y Amp Det (APTIMA) Negative *NA* (07/12/16 6:40 PM) Negative 07/12/2016 [facility] URINE CHEM U Preg Posit ari *ABN* (07/12/16 6:33 PM) Negative 07/12/2016 [facility] [place]OCRINOLOGY [place] [id number] 07/12/2016 [facility] URINE AND STOOL UA Color Colorless 07/12/2016 [facility] URINE AND STOOL UA Mucus Few /LPF None Seen /LPF 07/12/2016 [facility] URINE AND STOOL UA Urobilinogen <=1.0 mg/dL 0.1 - 1.0 07/12/2016 [facility] URINE AND STOOL UA Protein Negative mg/dL Negative mg/dL 07/12/2016 [facility] URINE AND STOOL UA pH 7.0 5.0 - 8.0 07/12/2016 [facility] URINE AND STOOL UA Spec Grav 1.002 <=1.030 07/12/2016 [facility] URINE AND STOOL UA Glucose Negative mg/dL Negative mg/dL 07/12/2016 [facility] URINE AND STOOL UA Bili Negative *NA* (07/12/16 5:00 PM) Negative 07/12/2016 [facility] URINE AND STOOL UA Ketones Negative mg/dL Negative mg/dL 07/12/2016 [facility] URINE AND STOOL UA Nitrite Negative (07/12/16 5:00 PM) Negative 07/12/2016 [facility] URINE AND STOOL UA Blood Negative (07/12/16 5:00 PM) Negative 07/12/2016 [facility] URINE AND STOOL UA Leuk Est Negative (07/12/16 5:00 PM) Negative 07/12/2016 [facility] URINE AND STOOL UA Turbidity Clear (07/12/16 5:00 PM) Clear 07/12/2016 [facility] URINE AND STOOL UA RBC 1 0 - 2 07/12/2016 [facility] URINE AND STOOL UA WBC 1 0 - 5 07/12/2016 [facility] URINE AND STOOL UA Sq Epi Occasional /LPF Few /LPF 07/12/2016 [facility] URINE AND STOOL UA Bacteria Occasional /HPF None Seen /HPF 07/12/2016 [facility] BLOOD BANK RESULTS ABO/Rh O POS 07/12/2016 [facility] CHEM PANEL A/G Ratio 0.8 0.7 - 1.6 07/12/2016 [facility] CHEM PANEL Globulin 4.1 2.7 - 4.2 07/12/2016 [facility] CHEM PANEL B/C Ratio 25 6 - 25 07/12/2016 [facility] CHEM PANEL AGAP 11.0 10.0 - 20.0 07/12/2016 [facility] CHEM PANEL eGFR 130 07/12/2016 Result Comment: The eGFR is calculated [...] should be multiplied by the estimated BMI. [facility] CHEM PANEL AST 14 0 - 37 07/12/2016 [facility] CHEM PANEL ALT 17 0 - 65 07/12/2016 [facility] CHEM PANEL Bili Total <0.1 0.2 - 1.3 07/12/2016 [facility] CHEM PANEL Alk Phos 47 39 - 136 07/12/2016 [facility] CHEM PANEL Glucose Lvl 83 70 - 99 07/12/2016 [facility] CHEM PANEL Albumin Lvl 3.1 3.5 - 5.0 07/12/2016 [facility] CHEM PANEL Total Protein 7.2 6.4 - 8.4 07/12/2016 [facility] CHEM PANEL Calcium Lvl 9.2 8.5 - 10.5 07/12/2016 [facility] CHEM PANEL CO2 27 24 - 32 07/12/2016 [facility] CHEM PANEL Chloride Lvl 104 95 - 109 07/12/2016 [facility] CHEM PANEL Potassium Lvl 4.0 3.5 - 5.1 07/12/2016 [facility] CHEM PANEL BUN 14 7 - 22 07/12/2016 [facility] CHEM PANEL Creatinine Lvl 0.57 0.50 - 1.40 07/12/2016 [facility] CHEM PANEL Sodium Lvl 138 135 - 145 07/12/2016 [facility] HEMATOLOGY Basophils 0.3 0.0 - 1.0 07/12/2016 [facility] HEMATOLOGY Lymphocytes 18.3 20.0 - 40.0 07/12/2016 [facility] HEMATOLOGY Segs 68.9 45.0 - 75.0 07/12/2016 [facility] HEMATOLOGY Eosinophils 4.4 0.0 - 4.0 07/12/2016 [facility] HEMATOLOGY Monocytes 8.1 2.0 - 12.0 07/12/2016 [facility] HEMATOLOGY Monocytes # 0.9 0.0 - 0.8 07/12/2016 [facility] HEMATOLOGY Lymphocytes # 1.9 1.0 - 5.5 07/12/2016 [facility] HEMATOLOGY Eosinophils # 0.5 0.0 - 0.5 07/12/2016 [facility] HEMATOLOGY Segs-Bands # 7.3 1.5 - 8.1 07/12/[address] [facility] MPV 7.8 7.4 - 10.4 07/12/[address] [facility] Platelet 242 133 - 450 07/12/[address] [facility] MCH 29.2 27.0 - 31.0 07/12/[address] [facility] MCV 86.1 80.0 - 98.0 07/12/[address] [facility] RDW 14.2 11.5 - 14.5 07/12/[address] [facility] MCHC 33.9 32.0 - 36.0 07/12/[address] [facility] WBC 10.6 3.7 - 10.4 07/12/[address] [facility] RBC 3.82 4.20 - 5.40 07/12/[address] [facility] Hct 32.9 36.0 - 48.0 07/12/[address] [facility] Hgb 11.1 12.0 - 16.0 07/12/2016 [facility] URINE AND STOOL UA RBC 1 0 - 2 05/20/2016 [facility] URINE AND STOOL UA WBC 1 0 - 5 05/20/2016 [facility] URINE AND STOOL UA Bacteria Occasional /HPF None Seen /HPF 05/20/2016 [facility] URINE AND STOOL UA Mucus Few /LPF None Seen /LPF 05/20/2016 [facility] URINE AND STOOL UA Spec Grav 1.011 <=1.030 05/20/2016 [facility] URINE AND STOOL UA Turbidity Clear (05/19/16 11:09 PM) Clear 05/20/2016 [facility] URINE AND STOOL UA Urobilinogen <=1.0 mg/dL 0.1 - 1.0 05/20/2016 [facility] URINE AND STOOL UA Color Ltyellow 05/20/2016 [facility] URINE AND STOOL UA Protein Negative mg/dL Negative mg/dL 05/20/2016 [facility] URINE AND STOOL UA Bili Negative *NA* (05/19/16 11:09 PM) Negative 05/20/2016 [facility] URINE AND STOOL UA pH 6.0 5.0 - 8.0 05/20/2016 [facility] URINE AND STOOL UA Ketones 80 mg/dL Negative mg/dL 05/20/2016 [facility] URINE AND STOOL UA Glucose Negative mg/dL Negative mg/dL 05/20/2016 [facility] URINE AND STOOL UA Nitrite Negative (05/19/16 11:09 PM) Negative 05/20/2016 [facility] URINE AND STOOL UA Blood Negative (05/19/16 11:09 PM) Negative 05/20/2016 [facility] URINE AND STOOL UA Sq Epi Few /LPF Few /LPF 05/20/2016 [facility] URINE AND STOOL UA Leuk Est Negative (05/19/16 11:09 PM) Negative 05/20/2016 [facility] CHEM PANEL Magnesium Lvl 2.1 1.8 - 2.4 05/20/2016 [facility] CHEM PANEL Globulin 3.8 2.7 - 4.2 05/20/2016 [facility] CHEM PANEL A/G Ratio 0.9 0.7 - 1.6 05/20/2016 [facility] CHEM PANEL AGAP 13.1 10.0 - 20.0 05/20/2016 [facility] CHEM PANEL B/C Ratio 24 6 - 25 05/20/2016 [facility] CHEM PANEL eGFR 133 05/20/2016 Result Comment: The eGFR is calculated [...] should be multiplied by the estimated BMI. [facility] CHEM PANEL Total Protein 7.4 6.4 - 8.4 05/20/2016 [facility] CHEM PANEL Albumin Lvl 3.6 3.5 - 5.0 05/20/2016 [facility] CHEM PANEL ALT 16 0 - 65 05/20/2016 [facility] CHEM PANEL AST 16 0 - 37 05/20/2016 [facility] CHEM PANEL Alk Phos 41 39 - 136 05/20/2016 [facility] CHEM PANEL Bili Total 0.2 0.2 - 1.3 05/20/2016 [facility] CHEM PANEL Sodium Lvl 138 135 - 145 05/20/2016 [facility] CHEM PANEL Potassium Lvl 4.1 3.5 - 5.1 05/20/2016 [facility] CHEM PANEL Chloride Lvl 107 95 - 109 05/20/2016 [facility] CHEM PANEL CO2 22 24 - 32 05/20/2016 [facility] CHEM PANEL Calcium Lvl 9.1 8.5 - 10.5 05/20/2016 [facility] CHEM PANEL BUN 13 7 - 22 05/20/2016 [facility] CHEM PANEL Creatinine Lvl 0.54 0.50 - 1.40 05/20/2016 [facility] CHEM PANEL Glucose Lvl 80 70 - 99 05/20/2016 [facility] CHEM PANEL Lipase Lvl 107 73 - 393 05/20/2016 [facility] ENDOCRINOLOGY hCG Tot [id number] 05/20/2016 [facility] HEMATOLOGY MPV 8.4 7.4 - 10.4 05/20/2016 [facility] HEMATOLOGY Platelet 224 133 - 450 05/20/2016 [facility] HEMATOLOGY MCH 28.1 27.0 - 31.0 05/20/2016 [facility] HEMATOLOGY RDW 13.5 11.5 - 14.5 05/20/2016 [facility] HEMATOLOGY MCHC 33.3 32.0 - 36.0 05/20/2016 [facility] HEMATOLOGY WBC 13.4 3.7 - 10.4 05/20/2016 [facility] HEMATOLOGY Hct 36.0 36.0 - 48.0 05/20/2016 [facility] HEMATOLOGY RBC 4.25 4.20 - 5.40 05/20/2016 [facility] HEMATOLOGY MCV 84.6 80.0 - 98.0 05/20/2016 [facility] HEMATOLOGY Hgb 12.0 12.0 - 16.0 05/20/2016 [facility] HEMATOLOGY Segs 74.0 45.0 - 75.0 05/20/2016 [facility] HEMATOLOGY Lymphocytes # 1.9 1.0 - 5.5 05/20/2016 [facility] HEMATOLOGY Monocytes # 0.8 0.0 - 0.8 05/20/2016 [facility] HEMATOLOGY Eosinophils # 0.7 0.0 - 0.5 05/20/2016 [facility] HEMATOLOGY Eosinophils 5.4 0.0 - 4.0 05/20/2016 [facility] HEMATOLOGY Lymphocytes 14.5 20.0 - 40.0 05/20/2016 [facility] HEMATOLOGY Basophils 0.4 0.0 - 1.0 05/20/2016 [facility] HEMATOLOGY Monocytes 5.7 2.0 - 12.0 05/20/2016 [facility] HEMATOLOGY Segs-Bands # 9.9 1.5 - 8.1 05/20/2016 [facility] BLOOD BANK RESULTS ABO/Rh O POS 09/18/2015 [facility] ELECTROLYTES Sodium Lvl 139 135 - 145 09/18/2015 [facility] ELECTROLYTES Potassium Lvl 4.2 3.5 - 5.1 09/18/2015 [facility] ELECTROLYTES Chloride Lvl 106 95 - 109 09/18/2015 [facility] ELECTROLYTES CO2 25 24 - 32 09/18/2015 [facility] ELECTROLYTES Glucose Lvl 107 70 - 99 09/18/2015 [facility] ELECTROLYTES Calcium Lvl 8.7 8.5 - 10.5 09/18/2015 [facility] ELECTROLYTES Creatinine Lvl 0.8 4 0.50 - 1.40 09/18/2015 [facility] ELECTROLYTES Albumin Lvl 3.8 3.5 - 5.0 09/18/2015 [facility] ELECTROLYTES BUN 13 7 - 22 09/18/2015 [facility] ELECTROLYTES ALT 17 0 - 65 09/18/2015 [facility] ELECTROLYTES AST 17 0 - 37 09/18/2015 [facility] ELECTROLYTES Total Protein 7.8 6.4 - 8.4 09/18/2015 [facility] ELECTROLYTES eGFR 98 09/18/2015 Result Comment: The eGFR is calculated [...] should be multiplied by the estimated BMI. [facility] ELECTROLYTES Bili Total 0.3 0.2 - 1.3 09/18/2015 [facility] ELECTROLYTES Alk Phos 58 39 - 136 09/18/2015 [facility] ELECTROLYTES Globulin 4.0 2.0 - 4.0 09/18/2015 [facility] ELECTROLYTES A/G Ratio 1.0 0.7 - 1.6 09/18/2015 [facility] ELECTROLYTES AGAP 12.2 10.0 - 20.0 09/18/2015 [facility] ELECTROLYTES B/C Ratio 15 6 - 25 09/18/2015 [facility] ENDOCRINOLOGY hCG Tot <1 09/18/2015 [facility] HEMATOLOGY MPV 8.3 7.4 - 10.4 09/18/2015 [facility] HEMATOLOGY Platelet 262 133 - 450 09/18/2015 [facility] HEMATOLOGY Hgb 12.8 12.0 - 16.0 09/18/2015 [facility] HEMATOLOGY RBC 4.52 4.20 - 5.40 09/18/2015 [facility] HEMATOLOGY WBC 10.1 3.7 - 10.4 09/18/2015 [facility] HEMATOLOGY MCHC 32.7 32.0 - 36.0 09/18/2015 [facility] HEMATOLOGY MCV 86.9 80.0 - 98.0 09/18/2015 [facility] HEMATOLOGY RDW 14.2 11.5 - 14.5 09/18/2015 [facility] HEMATOLOGY MCH 28.4 27.0 - 31.0 09/18/2015 [facility] HEMATOLOGY Hct 39.3 36.0 - 48.0 09/18/2015 [facility] HEMATOLOGY Basophils # 0.1 0.0 - 0.2 09/18/2015 [facility] HEMATOLOGY Eosinophils # 0.4 0.0 - 0.5 09/18/2015 [facility] HEMATOLOGY Segs-Bands # 6.3 1.5 - 8.1 09/18/2015 [facility] HEMATOLOGY Lymphocytes # 2.5 1.0 - 5.5 09/18/2015 [facility] HEMATOLOGY Basophils 0.6 0.0 - 1.0 09/18/2015 [facility] HEMATOLOGY Monocytes # 0.8 0.0 - 0.8 09/18/2015 [facility] HEMATOLOGY Monocytes 7.7 2.0 - 12.0 09/18/2015 [facility] HEMATOLOGY Lymphocytes 25.1 20.0 - 40.0 09/18/2015 [facility] HEMATOLOGY Segs 62.4 45.0 - 75.0 09/18/2015 [facility] HEMATOLOGY Eosinophils 4.2 0.0 - 4.0 09/18/2015 [facility] URINE AND STOOL UA Urobilinogen <=1.0 mg/dL 0.1 - 1.0 09/18/2015 [facility] URINE AND STOOL UA Color Ltyellow 09/18/2015 [facility] URINE AND STOOL UA Spec Grav 1.005 <=1.030 09/18/2015 [facility] URINE AND STOOL UA Turbidity Clear (09/18/15 5:22 PM) Clear 09/18/2015 [facility] URINE AND STOOL UA pH 5.0 5.0 - 8.0 09/18/2015 [facility] URINE AND STOOL UA Glucose Negative mg/dL Negative mg/dL 09/18/2015 [facility] URINE AND STOOL UA Ketones Negative mg/dL Negative mg/dL 09/18/2015 [facility] URINE AND STOOL UA Bili Negative *NA* (09/18/15 5:22 PM) Negative 09/18/2015 [facility] URINE AND STOOL UA Protein Negative mg/dL Negative mg/dL 09/18/2015 [facility] URINE AND STOOL UA Blood Large *ABN* (09/18/15 5:22 PM) Negative 09/18/2015 [facility] URINE AND STOOL UA Leuk Est Negative (09/18/15 5:22 PM) Negative 09/18/2015 [facility] URINE AND STOOL UA Sq Epi Occasional /LPF Few /LPF 09/18/2015 [facility] URINE AND STOOL UA WBC 1 0 - 5 09/18/2015 [facility] URINE AND STOOL UA RBC 8 0 - 2 09/18/2015 [facility] URINE AND STOOL UA Bacteria Occasional /HPF None Seen /HPF 09/18/2015 [facility] URINE AND STOOL UA Nitrite Negative (09/18/15 5:22 PM) Negative 09/18/2015 [facility] URINE AND STOOL UA Trans Epi 2 <=0 /LPF 09/18/2015 [facility] URINE CHEM U Preg Negat ari (09/18/15 5:22 PM) Negative 09/18/2015 [facility] MOLECULAR DIAGNOSTIC C trachomatis b y Amp Det (APTIMA) Negative 4 *NA* (10/01/14 1:11 PM) Negative 10/01/2014 <sup>4</sup>Interpretive Data: The APTIMA assay is a target amplification nucleic acid probe test utilizing target capture for the qualitative detection and differentiation of ribosomal RNA from Chlamydia trachomatis to aid in the diagnosis of disease from symptomatic and asymptomatic individuals using the PANTHER System.
This assay utilizes FDA cleared IVD reagents. Performance characteristics have been verified by the Molecular Diagnostic Laboratory within [facility]. The Molecular Diagnostic Laboratory is authorized under the Clinical Laboratory Improvement Amendments of 1988 (CLIA-88) to perform high complexity testing. [facility] MOLECULAR DIAGNOSTIC Source APTIMA Endocervix *NA* (10/01/14 1:11 PM) 10/01/2014 [facility] MOLECULAR DIAGNOSTIC N gonorrhea by Amp Det (APTIMA) Negative 3 *NA* (10/01/14 1:11 PM) Negative 10/01/2014 <sup>3</sup>Interpretive Data: The APTIMA assay is a target amplification nucleic acid probe test utilizing target capture for the qualitative detection and differentiation of ribosomal RNA from Neisseria gonorrhoeae to aid in the diagnosis of disease from symptomatic and asymptomatic individuals using the PANTHER System.
This assay utilizes FDA cleared IVD reagents. Performance characteristics have been verified by the [facility] Diagnostic [facility] within [facility]. The Molecular Diagnostic Laboratory is authorized under the Clinical Laboratory Improvement Amendments of 1988 (CLIA-88) to perform high complexity testing. [facility] DIAGNOSTIC Source APTIMA Endocervix *NA* (10/01/14 1:11 PM) 10/01/2014 [facility] URINE AND STOOL UA Color Ltyellow 10/01/2014 [facility] URINE AND STOOL UA Urobilinogen <=1.0 mg/dL 0.1 - 1.0 10/01/2014 [facility] URINE AND STOOL UA Sq Epi Occasional /LPF Few /LPF 10/01/2014 [facility] URINE AND STOOL UA Leuk Est Negative (10/01/14 1:11 PM) Negative 10/01/2014 [facility] URINE AND STOOL UA Bacteria Occasional /HPF None Seen /HPF 10/01/2014 [facility] URINE AND STOOL UA RBC 1 0 - 2 10/01/2014 [facility] URINE AND STOOL UA WBC 1 0 - 5 10/01/2014 [facility] URINE AND STOOL UA Bili Negative *NA* (10/01/14 1:11 PM) Negative 10/01/2014 [facility] URINE AND STOOL UA Glucose Negative mg/dL Negative mg/dL 10/01/2014 [facility] URINE AND STOOL UA Ketones Negative mg/dL Negative mg/dL 10/01/2014 [facility] URINE AND STOOL UA Nitrite Negative (6/7/15 1:11 PM) Negative 10/01/2014 [facility] URINE AND STOOL UA Blood Negative (10/01/14 1:11 PM) Negative 10/01/2014 [facility] URINE AND STOOL UA Spec Grav 1.012 <=1.030 10/01/2014 [facility] URINE AND STOOL UA Protein Negative mg/dL Negative mg/dL 10/01/2014 [facility] URINE AND STOOL UA pH 5.0 5.0 - 8.0 10/01/2014 [facility] URINE AND STOOL UA Turbidity Clear (10/01/14 1:11 PM) Clear 10/01/2014 [facility] URINE CHEM U Preg Negat ari (10/01/14 1:11 PM) Negative 10/01/2014 [facility] CHEM PANEL Amylase Lvl 35 25 - 115 10/01/2014 [facility] CHEM PANEL Lipase Lvl 73 73 - 393 10/01/2014 [facility] CHEM PANEL Magnesium Lvl 2.0 1.8 - 2.4 10/01/2014 [facility] CHEM PANEL Globulin 3.6 2.0 - 4.0 10/01/2014 [facility] CHEM PANEL B/C Ratio 18 6 - 25 10/01/2014 [facility] CHEM PANEL AGAP 9.0 10.0 - 20.0 10/01/2014 [facility] CHEM PANEL A/G Ratio 1.0 0.7 - 1.6 10/01/2014 [facility] CHEM PANEL Potassium Lvl 4.0 3.5 - 5.1 10/01/2014 [facility] CHEM PANEL Chloride Lvl 105 95 - 109 10/01/2014 [facility] CHEM PANEL Sodium Lvl 140 135 - 145 10/01/2014 [facility] CHEM PANEL eGFR 105 10/01/2014 <sup>1</sup>Result Comment: The eGFR is calculated using the CKD-EPI formula. In most young, healthy individuals the eGFR will be >90 mL/min/1.73m2. The eGFR declines with age. An eGFR of 60-89 may be normal in some populations, particularly the elderly, for whom the CKD-EPI formula has not been extensively validated. Use of the eGFR is not recommended in the following populations:& lt;br/>
Individuals with unstable creatinine concentrations, including patients [...] should be multiplied by the estimated BMI. [facility] CHEM PANEL Glucose Lvl 92 70 - 99 10/01/2014 <sup>2</sup>Interpretive Data: Adult ref erence range values reflect the clinical guidelines
of the [place] [employer]. [facility] CHEM PANEL BUN 14 7 - 22 10/01/2014 [facility] CHEM PANEL Bili Total 0.5 0.2 - 1.3 10/01/2014 [facility] CHEM PANEL Alk Phos 53 39 - 136 10/01/2014 [facility] CHEM PANEL AST 15 0 - 37 10/01/2014 [facility] CHEM PANEL Calcium Lvl 8.8 8.5 - 10.5 10/01/2014 [facility] CHEM PANEL CO2 30 24 - 32 10/01/2014 [facility] CHEM PANEL Creatinine Lvl 0.8 0.5 - 1.4 10/01/2014 [facility] CHEM PANEL ALT 20 0 - 65 10/01/2014 [facility] CHEM PANEL Albumin Lvl 3.7 3.5 - 5.0 10/01/2014 [facility] CHEM PANEL Total Protein 7.3 6.4 - 8.4 10/01/2014 [facility] ENDOCRINOLOGY S Preg Ne gative *NA* (10/01/14 11:26 AM) Negative 10/01/2014 [facility] HEMATOLOGY Monocytes # 0.7 0.0 - 0.8 10/01/2014 [facility] HEMATOLOGY Eosinophils # 0.3 0.0 - 0.5 10/01/2014 [facility] HEMATOLOGY Lymphocytes 27.6 20.0 - 40.0 10/01/2014 [facility] HEMATOLOGY Monocytes 7.7 2.0 - 12.0 10/01/2014 [facility] HEMATOLOGY Segs 60.5 45.0 - 75.0 10/01/2014 [facility] HEMATOLOGY Segs-Bands # 5.3 1.5 - 8.1 10/01/2014 [facility] HEMATOLOGY Lymphocytes # 2.4 1.0 - 5.5 10/01/2014 [facility] HEMATOLOGY Eosinophils 4.0 0.0 - 4.0 10/01/2014 [facility] HEMATOLOGY Basophils 0.2 0.0 - 1.0 10/01/2014 [facility] HEMATOLOGY Hct 39.5 36.0 - 48.0 10/01/[address] [facility] MCH 29.7 27.0 - 31.0 10/01/[address] [facility] MCV 86.6 80.0 - 98.0 10/01/[address] [facility] RDW 13.0 11.5 - 14.5 10/01/[address] [facility] MCHC 34.3 32.0 - 36.0 10/01/[address] [facility] MPV 8.0 7.4 - 10.4 10/01/[address] [facility] Platelet 236 133 - 450 10/01/[address] [facility] WBC 8.7 3.7 - 10.4 10/01/[address] [facility] Hgb 13.5 12.0 - 16.0 10/01/[address] [facility] RBC 4.56 4.20 - 5.40 10/01/2014 [facility] IMMUNOLOGY [facility] HIV 4th GEN Negat ari (10/01/14 11:26 AM) Negative 10/01/2014 [facility] Pathology Reports No Data Provided for This Section Diagnostic Reports Report Value Date Source Chest 2 views DX Chest, 2 view s dated 07/08/2017. HISTORY: Cough. No prior studies are available for comparison. The heart is normal in size. The cardiomediastinal shadow appears within normal limits. The lungs appear clear. The pulmonary vasculature appears normal in caliber. No acute pleural space abnormalities are identified. IMPRESSION: 1. No radiographic evidence of acute car diopulmonary disease. SL: 131 07/08/2017 [facility] age EXAMINATIO N: age CLINICAL: Vaginal Bleeding - for well being COMPARISON: No prior exam. COMMENTS: 1. Single 2. Live . 3. Presentation: Transverse 4. heart rate: 142 bpm. 5. CAMELIA = qualitative normal 6. Placenta: A. Position: Anterior B. Grade I C. No previa or abruptio. 7. Morphology: Not evaluated on t his exam. 8. Cervix closed and approximately 4.5 cm in length. 9. Biometry: BPD 4.1 cm = 18 weeks 2 days HC 15.1 cm = 18 weeks 1 day AC 12.5 cm = 18 weeks 1 day FL 2.6 cm = 17 weeks 6 days RATIOS (%): FL/AC 20.83 (20-24). FL/BPD 64.14 (71-87). HC/AC 1.21 ( 1.08-1.27 ). CI 75.5 (70-86). EFW = 220.65 gm . CLINICAL: ULTRASOUND: MA: 18 weeks 1 day ARNALDO: 12/12/2016 IMPRESSION: Single viable intrauterine gestation in transverse presentation with estimated gestational age of 18 weeks 1 day and estimated date of delivery of 12/12/2016. SL: NADIRA 07/12/2016 [facility] Spine cervical wo contrast CT EXAM: CT [...] IMPRESSION: 1. No acute fracture or pathologic sublu xation detected. SL: SHADY 08/29/2015 [facility] Brain wo contrast CT EXAM: CT BRAIN [...] IMPRESSION: 1. No definite acute infarct or intracra nial hemorrhage detected. If there is further concern for intracranial pathology or acute stroke, MRI of the brain may be performed for complete assessment. SL: SHADY 08/29/2015 [facility] ED Abdomen/Pelvis IV contrast only CT CT [...] of the abdomen or pelvis. SL:13 10/01/2014 [facility] Consultation Notes No Data Provided for This Section Discharge Summaries No Data Provided for This Section History and Physicals No Data Provided for This Section Vital Signs Vital Sign Value Date Comments Source Respitory Rate 20 09/21/2017 [facility] Systolic (mm Hg) 120 09/21/2017 [facility] Diastolic (mm Hg) 70 09/21/2017 [facility] Temperature Oral (F) 98.7 F 09/21/2017 [facility] Heart Rate 70 09/21/2017 [facility] Heart Rate 75 09/20/2017 [facility] Systolic (mm Hg) 116 09/20/2017 [facility] Diastolic (mm Hg) 68 09/20/2017 [facility] BMI Calculated 24.61 09/20/2017 [facility] Temperature Oral (F) 99.8 F 09/20/2017 [facility] Respitory Rate 18 09/20/2017 [facility] Weight 59.091 09/20/2017 [facility] Height 154.94 cm 09/20/2017 [facility] Heart Rate 78 07/08/2017 [facility] Respitory Rate 14 07/08/2017 [facility] Temperature Oral (F) 98.1 F 07/08/2017 [facility] Systolic (mm Hg) 116 07/08/2017 [facility] Diastolic (mm Hg) 82 07/08/2017 [facility] Weight 54.545 07/08/2017 [facility] BMI Calculated 22.72 07/08/2017 [facility] Height 154.94 cm 07/08/2017 [facility] Oral (F) 98.3 F 07/08/2017 [facility] Respitory Rate 16 07/08/2017 [facility] Heart Rate 68 07/08/2017 [facility] Systolic (mm Hg) 134 07/08/2017 [facility] Diastolic (mm Hg) 84 07/08/2017 [facility] BMI Calculated 25.94 09/15/2016 [facility] Weight 62.273 09/15/2016 [facility] Systolic (mm Hg) 117 09/15/2016 [facility] Diastolic (mm Hg) 83 09/15/2016 [facility] Heart Rate 91 09/15/2016 [facility] Temperature Oral (F) 98.4 F 09/15/2016 [facility] Respitory Rate 18 09/15/2016 [facility] Height 154.94 cm 09/15/2016 [facility] Respitory Rate 17 07/12/2016 [facility] Heart Rate 86 07/12/2016 [facility] Temperature Oral (F) 98.1 F 07/12/2016 [facility] Systolic (mm Hg) 123 07/12/2016 [facility] Diastolic (mm Hg) 66 07/12/2016 [facility] Systolic (mm Hg) 120 07/12/2016 [facility] Diastolic (mm Hg) 74 07/12/2016 [facility] Heart Rate 91 07/12/2016 [facility] Respitory Rate 18 07/12/2016 [facility] Temperature Oral (F) 98.3 F 07/12/2016 [facility] Height 154.94 cm 07/12/2016 [facility] BMI Calculated 23.67 07/12/2016 [facility] Weight 56.818 07/12/2016 [facility] Respitory Rate 18 05/20/2016 [facility] Heart Rate 83 05/20/2016 [facility] Systolic (mm Hg) 127 05/20/2016 [facility] Diastolic (mm Hg) 83 05/20/2016 [facility] Temperature Oral (F) 98.2 F 05/20/2016 [facility] Weight 55.909 05/20/2016 [facility] BMI Calculated 23.29 05/20/2016 [facility] Height 154.94 cm 05/20/2016 [facility] Respitory Rate 18 09/19/2015 [facility] Systolic (mm Hg) 119 09/19/2015 [facility] Diastolic (mm Hg) 76 09/19/2015 [facility] Heart Rate 84 09/19/2015 [facility] Temperature Oral (F) 98.3 F 09/19/2015 [facility] Height 154.94 cm 09/18/2015 [facility] Systolic (mm Hg) 123 09/18/2015 [facility] Diastolic (mm Hg) 80 09/18/2015 [facility] Heart Rate 73 09/18/2015 [facility] Respitory Rate 18 09/18/2015 [facility] Temperature Oral (F) 98.1 F 09/18/2015 [facility] BMI Calculated 23.67 09/18/2015 [facility] Weight 56.818 09/18/2015 [facility] Respitory Rate 18 08/29/2015 [facility] Heart Rate 98 08/29/2015 [facility] Systolic (mm Hg) 136 08/29/2015 [facility] Diastolic (mm Hg) 86 08/29/2015 [facility] Temperature Oral (F) 98.0 F 08/29/2015 [facility] Temperature Oral (F) 98.8 F 08/29/2015 [facility] Respitory Rate 18 08/29/2015 [facility] Heart Rate 98 08/29/2015 [facility] Systolic (mm Hg) 146 08/29/2015 [facility] Diastolic (mm Hg) 86 08/29/2015 [facility] Systolic (mm Hg) 143 08/29/2015 [facility] Diastolic (mm Hg) 84 08/29/2015 [facility] Heart Rate 96 08/29/2015 [facility] Respitory Rate 18 08/29/2015 [facility] Height 154.94 cm 08/29/2015 [facility] Temperature Oral (F) 98.9 F 08/29/2015 [facility] BMI Calculated 21.77 08/29/2015 [facility] Weight 52.273 08/29/2015 [facility] Heart Rate 94 08/09/2015 [facility] Respitory Rate 20 08/09/2015 [facility] Systolic (mm Hg) 121 08/09/2015 [facility] Diastolic (mm Hg) 64 08/09/2015 [facility] Temperature Oral (F) 98.8 F 08/09/2015 [facility] Height 154.94 cm 08/09/2015 [facility] BMI Calculated 23.67 08/09/2015 [facility] Weight 56.818 08/09/2015 [facility] Temperature Oral (F) 99.6 F 08/09/2015 [facility] Respitory Rate 20 08/09/2015 [facility] Heart Rate 104 08/09/2015 [facility] Systolic (mm Hg) 127 08/09/2015 [facility] Diastolic (mm Hg) 84 08/09/2015 [facility] Respitory Rate 18 10/01/2014 [facility] Systolic (mm Hg) 94 10/01/2014 [facility] Diastolic (mm Hg) 57 10/01/2014 [facility] Heart Rate 64 10/01/2014 [facility] Temperature Oral (F) 98.7 F 10/01/2014 [facility] Weight 56.818 10/01/2014 [facility] Temperature Oral (F) 98.5 F 10/01/2014 [facility] Height 154.94 cm 10/01/2014 [facility] BMI Calculated 23.67 10/01/2014 [facility] Systolic (mm Hg) 125 10/01/2014 [facility] Diastolic (mm Hg) 78 10/01/2014 [facility] Heart Rate 80 10/01/2014 [facility] Respitory Rate 18 10/01/2014 [facility] Respitory Rate 22.0 03/14/2011 [facility] Systolic (mm Hg) 118.0 03/14/2011 [facility] Heart Rate 70.0 03/14/2011 [facility] Diastolic (mm Hg) 64.0 03/14/2011 [facility] Weight 52.273 03/14/2011 [facility] Height 157.48 cm 03/14/2011 [facility] Respitory Rate 18.0 03/14/2011 [facility] Temperature Oral (F) 98.1 F 03/14/2011 [facility] Diastolic (mm Hg) 62.0 03/14/2011 [facility] Heart Rate 84.0 03/14/2011 [facility] Systolic (mm Hg) 118.0 03/14/2011 [facility] Encounters Location Location Details Encounter Type Encounter Number Reason For Visit Attending Provider ADM Date DC Date Status Source [facility] Emergency [id number] LOWER EXTREMITY I KHALIF BURCHEAL 03/14/2011 03/14/2011 Active [facility] [id number] 01 Mj Tyson 10/01/2014 10/01/2014 [facility] [id number] 02 Javi Joshi 08/09/2015 08/09/2015 [facility] [id number] 03 Diane Tee 08/29/2015 08/29/2015 [facility] [id number] 04 Benny Jim 09/18/2015 09/19/2015 [facility] Emergency [id number] Jonnie Newby 05/20/2016 05/20/2016 [facility] Emergency [id number] Jose Tovar 07/12/2016 07/13/2016 [facility] Emergency [id number] Elise Tran 7 09/15/2016 [facility] Emergency [id number] Dylan Abreu 07/08/2017 07/08/2017 [facility] Emergency [id number] Peter Macias 09/20/2017 09/21/2017 [facility] Procedures No Data Provided for This Section Assessment and Plan No Data Provided for This Section Plan of Care No Data Provided for This Section Social History Social History Date Source Social History TypeResponse Alcohol Current, Type Beer. Previous treatment: None. Smoking Status Current some day smoker; Exposure to Tobacco Smoke None; Cigarette Smoking Last 365 Days Yes; Reg Smoking Cessation Counseling No entered on: 09/20/17 08/29/2015 [facility] Family History No Data Provided for This Section Advance Directives No Data Provided for This Section Functional Status No Data Provided for This Section
[2019-12-07] MEDS ORDERED: TETRACAINE HCL 0.5% OPTH SOLN 4 ML BTL OP ONE (21:45)
--- OUTSIDE RECORDS SUMMARY | 2019-12-07 21:45 | XMS REPORT | Continuity of Care Document ---
Author Author [facility] t Organization [facility] Address [address] [place] [address] Phone Unavailable Care Team Providers Care Superintendent Quarry Name Role Phone NO, PCP PCP Unavailable ANNA ASENCIO Attphys Unavailable Peter Macias Attphys Jono Abreu Attphys Leslie Tran Attphys [phone] Ad Tovar Attphys Enoc Newby Attphys [phone] Benny Fernandez Attphys Aldo Tee Attphys Shimon Joshi Attphys Amador Tyson Attphys Payers Payer Name Policy Type Policy Number Effective Date Expiration Date S [facility] [employer]po [id number] I [facility] Problems Condition Name Condition Details Condition Category Status Onset Date Resolution Date Last Treatment Date Treating Clinician Comments Source RASH RASH Active 09/20/2017 [facility] Active 2017-09-20 00:00:00 2018-01-15 17:26:00 Maria Teresa Barrera FLU LIKE SYMPTOMS FLU LIKE SYMPTOMS Active 07/07/2017 [facility] Active 2017-07-07 00:00:00 2017-07-08 00:35:00 Maria Teresa Barrera LOWER ABDOMINAL PAIN LOWE R ABDOMINAL PAIN Active 09/14/2016 [facility] Active 2016-09-14 00:00:00 2016-09-14 22:34:00 Maria Teresa Barrera VAG BLEED VAG BLEED Active 07/12/2016 [facility] Active 2016-07-12 16:00:00 2016-07-12 17:58:00 [facility] PREG/VOMMITTING PREG /VOMMITTING Active 05/19/2016 [facility] Active 2016-05-19 00:00:00 2016-05-19 21:00:00 [facility] PREG, PELVIC PAIN PREG , PELVIC PAIN Active 09/18/2015 [facility] Active 2015-09-18 00:00:00 2015-09-18 17:32:00 [facility] STREP THROAT STRE P THROAT Active 08/08/2015 [facility] Active 2015-08-08 00:00:00 2015-08-08 21:33:00 [facility] ABD PAIN/VOMITING/NAUSEA ABD PAIN/VOMITING/NAUSEA Active 10/01/2014 [facility] Active 2014-10-01 00:00:00 2014-10-01 12:32:00 [facility] HEAD PAIN OR INJURY HEAD PAIN OR INJURY Active 08/28/2012 [facility] Active 2012-08-28 00:00:00 2015-08-29 00:47:00 [facility] LOWER EXTREMITY INJURY LOWE R EXTREMITY INJURY Active 03/14/2011 [facility] Active 2011-03-14 00:00:00 2011-03-14 10:15:00 Maria Teresa Barrera Acute pharyngitis, unspecified Acute pharyngitis, unspecified 07/15/2017 10/14/2017 [facility] 20 12-07-20 03:21:01 2017-10-14 14:47:11 2017-10-14 14:47:11 [facility] Dermatitis, unspecified Derm atitis, unspecified 09/20/2017 09/23/2017 [facility] 2017-09-20 05:00:00 2017 00:47:43 2017-09-23 00:47:43 [facility] state, incidental Pre gnant state, incidental 09/15/2016 09/18/2016 [facility] 2016-09-15 05:0 0:00 2016-09-18 02:40:43 2016-09-18 02:40:43 [facility] neely Threatened Thre atened 07/12/2016 07/15/2016 [facility] 2016-07-12 05:00:00 2016-07-15 01:36: 19 2016-07-15 01:36:19 [facility] Discharge Diagnosis: Hyperemesis gravidarum Discharge Diagnosis: Hyperemesis gravidarum 05/19/2016 05/23/2016 [facility] 2016-05-19 06:00:00 2016-05-23 04:19:46 2016-05-23 04:19:46 [facility] Discharge Diagnosis: Abnormal vaginal bleeding Discharge Diagnosis: Abnormal vaginal bleeding 09/18/2015 09/21/2015 [facility] 2015-09-18 05:00:00 2015-09-21 05:03:24 2015-09-21 05:03:24 [facility] Discharge Diagnosis: Unspecified injury of head, initi al encounter Discharge Diagnosis: Unspecified injury of head, initial encounter 08/29/2015 09/01/2015 [facility] 2015-08-29 05:00:00 2015 03:40:16 2015-09-01 03:40:16 [facility] Discharge Diagnosis: Streptococcal pharyngitis Discharge Diagnosis: Streptococcal pharyngitis 08/08/2015 08/11/2015 [facility] 2015-08-08 05:00:00 2015-08-11 05:01:28 2015-08-11 05:01:28 [facility] Discharge Diagnosis: Acute lymphadenitis of face, head and neck Discharge Diagnosis: Acute lymphadenitis of face, head and neck 08/08/2015 08/11/2015 [facility] 2015-08-08 05:00:00 2015 05:01:28 2015-08-11 05:01:28 [facility] Discharge Diagnosis: Fever, unspecified Discharge Diagnosis: Fever, unspecified 08/08/2015 08/11/2015 [facility] 2015-08-08 05:00:00 2015-08-11 05:01:28 2015-08-11 05:01:28 [facility] Discharge Diagnosis: PID (pelvic inflammatory disease) Discharge Diagnosis: PID (pelvic inflammatory disease) 10/01/2014 10/04/2014 [facility] 2014-10-01 05:00:00 2014-10-04 00:43:58 2014-09 00:43:58 [facility] Discharge Diagnosis: Abdominal pain Discharge Diagnosis: Abdominal pain 10/01/2014 10/04/2014 [facility] 2014-10-01 05:00:00 2014-10-04 00:43:58 2014-10-04 00:43:58 [facility] Discharge Diagnosis: Acute vomiting Discharge Diagnosis: Acute vomiting 10/01/2014 10/04/2014 [facility] 2014-10-01 05:00:00 2014-10-04 00:43:58 2014-10-04 00:43:58 [facility] Discharge Diagnosis: Cyst, ovarian Discharge Diagnosis: Cyst, ovarian 10/01/2014 10/04/2014 [facility] 2014-10-01 05:00:00 2014-10-04 00:43:58 2014-10-04 00:43:58 [facility] Allergies, Adverse Reactions, Alerts Allergy Name Allergy Type Status Severity Reaction(s) Onset Date Inacti ve Date Treating Clinician Comments Source Eggs Allergy to Substance Active Moderate 2018-05-07 00:00:00 [facility] Active [facility] Social History Social Habit Start Date Stop Date Quantity Comments Source Social History 2015-08-29 05:02:06 2015-08-29 05:02:06 [facility] Medications Ordered Medication Name Filled Medication Name Start Date Stop Da te Current Medication? Ordering Clinician Indication Dosage Frequency Signature (SIG) Comments Components Source cetirizine hydrochloride 10 MG Oral Tablet [Zyrtec] 09-21 01:24:00 Yes 10 mg = 1 tab, PO, Daily, NM N Allergic reaction, # 10 tab, 0 Refill[facility] {21 (Methylprednisolone 4 MG Oral Tablet [Medrol]) } Pack [M edrol Dosepak] 2017-09-21 01:24:00 Yes See Instructions, PO, Take by mouth as directed on label., # 1 Pack, 0 Refill(s) [facility] Dexamethasone 2017-09-21 00:47:00 No 10 mg, 2.5 mL, Route: IM, Drug form: INJ, ONCE, Dosing Weight 59.091, kg, Priority: STAT, Start date: 09/20/17 19:47:00 CDT, Stop date: 09/20/17 19:47:00 CDT [facility] Zofran 2016-09-15 03:49:00 No Notes: (Same as: Zofrgerald) MEDICATION WASTE Product Size: 4 mg Product Wasted: ___ mg [facility] Calcium Chloride 0.0014 MEQ/ML / Potassi um Chloride 0.004 MEQ/ML / Sodium Chloride 0.103 MEQ/ML / Sodium Lactate 0.028 MEQ/ML Injectable Solution 2016-09-15 03:49:00 No 1,000 mL, 1,000 ml/hr, Infuse Over: 1 hr, Route: IV, 1,000, Drug form: INJ, ONCE, Priority: STAT, Dosing Weight 56.818 kg, Start date: 09/14/16 22:49:00 CDT, Duration: 1 doses or times, Stop date: 22:49:00 CDT [facility] Multivitamins with Folic Acid 0.4 mg oral kit 2016-05-20 05:32:00 Yes 1 tab, PO, Daily, # 30 tab, 0 Refill(s) [facility] Metoclopramide 10 MG Oral Tablet [Reglan] 2016-05-20 05:31:00 Yes 10 mg = 1 tab, PO, QID-Before Meals, PRN nausea and vomiting, X 10 day, # 40 tab, 0 Refill(s) [facility] Teresa [facility]rera Metoclopramide 2016-05-20 02:19:00 No Notes : (Same as: Reglan) [facility] Sodium Chloride 0.154 MEQ/ML Injectable Solution 2016-05-20 02:1 9:00 No 1,000 mL, 1000 ml/hr, Infuse Over: 1 hr, Route: IV, 1,000, Drug form: INJ, ONCE, Priority: STAT, Dosing Weight 55.909 kg, Start date: 05/19/16 20:19:00 CHUCK BONER, Duration: 1 doses or times, Stop date: 05/19/16 20:19:00 CHUCK BONER [facility] Saline Flush 0.9% 2016-05-20 02:19:00 No Notes: (Same as: BD Posiflush) [facility]rera ibuprofen 800 mg oral tablet 2015-09-19 00:15:00 Yes 800 mg = 1 tab, PO, Q6H, PRN Fever or Pain, Take with food, # 40 tab, 0 Refill(s) [facility] Teresa [facility]rera Saline Flush 0.9% 2015-09-18 22:20:00 No Notes: (Same as: BD Posiflush) [facility] Zofran ODT 2015-08-29 06:14:00 No 4 mg, Route: PO, Drug form: TABDIS, ONCE, Dosing Weight 52.273, kg, Priority: STAT, Start date: 08/29/15 1:14:00 CDT, Stop date: 08/29/15 1:14:00 CDT [facility] tramadol hydrochloride 50 MG Oral Tablet [Ultram] 2015-08-29 06:13:00 Yes 100 mg = 2 tab, PO, Q6H, PRN pain, X 3 day, # 2 4 tab, 0 Refill(s) [facility] Ondansetron 4 MG Disintegrating Tablet [Zofran] 2015-08-29 06:13 :00 No 4 mg = 1 tab, PO, BID, PRN N ausea and Vomiting, Dissolve tab under tongue, X 2 day, # 4 tab, 0 Refill(s) [facility] Acetaminophen 325 MG / Hydrocodone Bitartrate 10 MG Or al Tablet [[place] 10/325] 2015-08-29 04:53:00 No 1 ta b, Route: PO, Dosing Weight 52.273, kg, ONCE, Start date: 08/28/15 23:53:00 CDT, Stop date: 08/28/15 23:53:00 CDT [facility] Zofran 2015-08-29 04:19:00 No 4 mg, Route: IVP, Drug form: INJ, ONCE, Dosing Weight 52.273, kg, Priority: STAT, Start date: 08/28/15 23:19:00 CDT, Stop date: 08/28/15 23:19:00 CDT [facility] ODT 2015-08-29 04:18:00 No 4 mg, Route: PO, Drug form: TABDIS, ONCE, Dosing Weight 52.273, kg, Priority: STAT, Start date: 08/28/15 23:18:00 CDT, Stop date: 08/28/15 23:18:00 CDT [facility] Morphine 2015-08-29 04:18:00 No 4 mg, Route: IVP, ONCE, Dosing Weight 52.273, kg, Start date: 08/28/15 23:18:00 CDT, Stop date: 08/28/15 23:18:00 CDT [facility] Sodium Chloride 0.154 MEQ/ML Injectable Solution 2015-08-29 04:1 8:00 No 1,000 mL, 1,000 ml/hr, Infus e Over: 1 hr, Route: IV, ONCE, Priority: STAT, Dosing Weight 52.273 kg, Start date: 08/28/15 23:18:00 CDT, Duration: 1 doses or times, Stop date: 08/28/15 23:18:00 CDT [facility] Acetaminophen 21.7 MG/ML / Hydrocodone Bitartrate 0.5 MG/ML Oral Solution 2015-08-09 01:22:00 No Notes: Do not exceed 4gm/day of acetaminophen. (Same as: [place] 325/7.5) Maria Teresa Mcdaniel n Tylenol with Codeine 120 mg-12 mg/5 mL oral liquid 2015-07-27 4 01:22:00 No Notes: (acetaminophe n-codeine 120-12 mg/5 ml oral liq) Do not exceed 4gm/day of acetaminophen. (Same as: Tylenol w/Codeine) [facility] Dexamethasone 2015-08-09 01:22:00 No Notes: Concentration: 4mg/ml [facility] Bicillin L-A 2015-08-09 01:22:00 No Notes: (penicillin G benzathine 1.2 MilUnit/2 ml INJ) (Same as: Bicillin L-A, Permapen) NOT For Daily Use [facility] Ondansetron 4 MG Disintegrating Tablet 2014-10-01 20:44:00 Yes Special Instructions: Dissolve tab under tongue [facility] Teresa Barrera doxycycline hyclate 100 mg oral tablet 2014-10-01 20:42:00 Yes 100 mg = 1 tab, PO, Q12H, X 14 day, # 28 tab, 0 Refill(s) [facility] Acetaminophen 300 MG / Codeine Phosphate 30 MG Oral Tablet [Tylenol with Codeine #3] 2014-10-01 20:42:00 No 1 - 2 tab, PO, Q4H, PRN Pain, X 2 day, # 20 tab, 0 Refill(s) [facility] Promethazine 2014-10-01 19:03:00 No 25 mg, Route: IVPB, ONCE, Dosing Weight 56.818, kg, Priority: STAT, Start date: 10/01/14 14:03:00, Stop date: 10/01/14 14:03:00 [facility] Ketorolac 2014-10-01 19:03:00 No 30 mg, Route: IVP, Drug form: INJ, ONCE, Dosing Weight 56.818, kg, Priority: STAT, Start date: 10/01/14 14:03:00, Stop date: 10/01/14 14:03:00 [facility] Ceftriaxone 2014-10-01 19:02:00 No 1 gm, Route: IVPB, Drug form: PDR/INJ, ONCE, Dosing Weight 56.818, kg, Priority: STAT, Start date: 10/01/14 14:02:00, Stop date: 10/01/14 14:02:00 M [facility] Sodium Chloride 0.154 MEQ/ML Injectable Solution 2014-10-01 16:0 8:00 No 1,000 mL, 1000 ml/hr, Infuse Over: 1 hr, Route: IV, 1,000, Drug form: INJ, ONCE, Priority: STAT, Dosing Weight 56.818 kg, Start date: 10/01/14 11:08:00, Duration: 1 doses or times, Stop date: 10/01/14 11:08:00 [facility] Saline Flush 0.9% 2014-10-01 16:08:00 No Notes: (Same as: BD Posiflush) [facility] Ondansetron 2014-10-01 16:08:00 No Notes: (Same as: Zofran) MEDICATION WASTE Product Size: 4 mg Product Wasted: ___ mg [facility] Famotidine 2014-10-01 16:08:00 No Notes: (Same as: Pepcid) Can be dilute in 5-10cc NS IVP: Slow IV push over at least 2 minutes. [facility] Vital Signs Vital Name Observation Time Observation Value Comments Source Respitory Rate 2017-09-21 01:52:00 [place] [facility] Systolic (mm Hg) 2017-09-21 01:52:00 [place] ab[place] Barrera Diastolic (mm Hg) 2017-09-21 01:52:00 Manisha orial [facility] Temperature Oral (F) 2017-09-21 01:52:00 98.7 F [facility] Heart Rate 2017-09-21 01:52:00 [facility] Heart Rate 2017-09-20 21:15:00 [facility] Systolic (mm Hg) 2017-09-20 21:15:00 [place] [facility] [place] Diastolic (mm Hg) 2017-09-20 21:15:00 [facility] BMI Calculated 2017-09-20 21:15:00 [facility] Temperature Oral (F) 2017-09-20 21:15:00 99.8 F [facility] Respitory Rate 2017-09-20 21:15:00 [facility] Weight 2017-09-20 21:15:00 [facility] Height 2017-09-20 21:15:00 154.94 cm [facility] Heart Rate 2017-07-08 07:30:00 [facility] Respitory Rate 2017-07-08 07:30:00 [facility] Temperature Oral (F) 2017-07-08 07:30:00 98.1 F [facility] Systolic (mm Hg) 2017-07-08 07:30:00 [place] [facility] Diastolic (mm Hg) 2017-07-08 07:30:00 [facility] Weight 2017-07-08 04:40:00 [facility] BMI Calculated 2017-07-08 04:40:00 [facility] Height 2017-07-08 04:40:00 154.94 cm [facility] Temperature Oral (F) 2017-07-08 04:40:00 98.3 F [facility] Respitory Rate 2017-07-08 04:40:00 [facility] Heart Rate 2017-07-08 04:40:00 [facility] Systolic (mm Hg) 2017-07-08 04:40:00 [place] [facility] Diastolic (mm Hg) 2017-07-08 04:40:00 [facility] BMI Calculated 2016-09-15 03:45:00 [facility] Weight 2016-09-15 03:45:00 [facility] Systolic (mm Hg) 2016-09-15 03:45:00 [facility] Diastolic (mm Hg) 2016-09-15 03:45:00 [facility] Heart Rate 2016-09-15 03:45:00 [facility] Temperature Oral (F) 2016-09-15 03:45:00 98.4 F [facility] Respitory Rate 2016-09-15 03:45:00 [facility] Height 2016-09-15 03:45:00 154.94 cm [facility] Respitory Rate 2016-07-12 23:40:00 [facility] Heart Rate 2016-07-12 23:40:00 [facility] Temperature Oral (F) 2016-07-12 23:40:00 98.1 F [facility] Systolic (mm Hg) 2016-07-12 23:40:00 [place] [facility] Diastolic (mm Hg) 2016-07-12 23:40:00 [facility] Systolic (mm Hg) 2016-07-12 21:29:00 [place] [facility] Diastolic (mm Hg) 2016-07-12 21:29:00 [facility] Heart Rate 2016-07-12 21:29:00 [facility] Respitory Rate 2016-07-12 21:29:00 [facility] Temperature Oral (F) 2016-07-12 21:29:00 98.3 F [facility] Height 2016-07-12 21:29:00 154.94 cm [facility] BMI Calculated 2016-07-12 21:29:00 [facility] Weight 2016-07-12 21:29:00 [facility] Respitory Rate 2016-05-20 02:13:00 [facility] Heart Rate 2016-05-20 02:13:00 [facility] Systolic (mm Hg) 2016-05-20 02:13:00 [facility] Diastolic (mm Hg) 2016-05-20 02:13:00 [facility] Temperature Oral (F) 2016-05-20 02:13:00 98.2 F [facility] Weight 2016-05-20 02:13:00 [facility] BMI Calculated 2016-05-20 02:13:00 [facility] Height 2016-05-20 02:13:00 154.94 cm [facility] Respitory Rate 2015-09-19 00:25:00 [facility] Systolic (mm Hg) 2015-09-19 00:25:00 [facility] Diastolic (mm Hg) 2015-09-19 00:25:00 [facility] Heart Rate 2015-09-19 00:25:00 [facility] Temperature Oral (F) 2015-09-19 00:25:00 98.3 F [facility] Height 2015-09-18 21:49:00 154.94 cm [facility] Systolic (mm Hg) 2015-09-18 21:49:00 [place] [facility] Diastolic (mm Hg) 2015-09-18 21:49:00 [facility] Heart Rate 2015-09-18 21:49:00 [facility] Respitory Rate 2015-09-18 21:49:00 [facility] Temperature Oral (F) 2015-09-18 21:49:00 98.1 F [facility] BMI Calculated 2015-09-18 21:49:00 [facility] Weight 2015-09-18 21:49:00 [facility] Respitory Rate 2015-08-29 06:18:00 [facility] Heart Rate 2015-08-29 06:18:00 [facility] Systolic (mm Hg) 2015-08-29 06:18:00 [place] [facility] Diastolic (mm Hg) 2015-08-29 06:18:00 [facility] Temperature Oral (F) 2015-08-29 06:18:00 98.0 F [facility] Temperature Oral (F) 2015-08-29 05:03:00 98.8 F [facility] Respitory Rate 2015-08-29 05:03:00 [facility] Heart Rate 2015-08-29 05:03:00 [facility] Systolic (mm Hg) 2015-08-29 05:03:00 [facility] Diastolic (mm Hg) 2015-08-29 05:03:00 [facility] Systolic (mm Hg) 2015-08-29 04:05:00 [facility] Diastolic (mm Hg) 2015-08-29 04:05:00 [facility] Heart Rate 2015-08-29 04:05:00 [facility] Respitory Rate 2015-08-29 04:05:00 [facility] Height 2015-08-29 04:05:00 154.94 cm [facility] Temperature Oral (F) 2015-08-29 04:05:00 98.9 F [facility] BMI Calculated 2015-08-29 04:05:00 [facility] Weight 2015-08-29 04:05:00 [facility] Heart Rate 2015-08-09 02:00:00 [facility] Respitory Rate 2015-08-09 02:00:00 [facility] Systolic (mm Hg) 2015-08-09 02:00:00 [place] [facility] Diastolic (mm Hg) 2015-08-09 02:00:00 [facility] Temperature Oral (F) 2015-08-09 02:00:00 98.8 F [facility] Height 2015-08-09 00:55:00 154.94 cm [facility] BMI Calculated 2015-08-09 00:55:00 [facility] Weight 2015-08-09 00:55:00 [facility] Temperature Oral (F) 2015-08-09 00:55:00 99.6 F [facility] Respitory Rate 2015-08-09 00:55:00 [facility] Heart Rate 2015-08-09 00:55:00 [facility] Systolic (mm Hg) 2015-08-09 00:55:00 [place] [facility] Diastolic (mm Hg) 2015-08-09 00:55:00 [facility] Respitory Rate 2014-10-01 21:16:00 [facility] Systolic (mm Hg) 2014-10-01 21:16:00 [place] [facility] Diastolic (mm Hg) 2014-10-01 21:16:00 [facility] Heart Rate 2014-10-01 21:16:00 [facility] Temperature Oral (F) 2014-10-01 21:16:00 98.7 F [facility] Weight 2014-10-01 15:59:00 [facility] Temperature Oral (F) 2014-10-01 15:59:00 98.5 F [facility] Height 2014-10-01 15:59:00 154.94 cm [facility] BMI Calculated 2014-10-01 15:59:00 [facility] Systolic (mm Hg) 2014-10-01 15:59:00 [facility] Diastolic (mm Hg) 2014-10-01 15:59:00 [facility] Heart Rate 2014-10-01 15:59:00 [facility] Respitory Rate 2014-10-01 15:59:00 [facility] Respitory Rate 2011-03-14 13:47:00 [facility] Systolic (mm Hg) 2011-03-14 13:47:00 [facility] Heart Rate 2011-03-14 13:47:00 [facility] Diastolic (mm Hg) 2011-03-14 13:47:00 [facility] Weight 2011-03-14 13:28:00 [facility] Height 2011-03-14 13:28:00 157.48 cm [facility] Respitory Rate 2011-03-14 13:28:00 [facility] Temperature Oral (F) 2011-03-14 13:28:00 98.1 F [facility] Diastolic (mm Hg) 2011-03-14 13:28:00 [facility] Heart Rate 2011-03-14 13:28:00 [facility] Systolic (mm Hg) 2011-03-14 13:28:00 [place] [facility] Procedures Procedure Date / Time Performed Performing Clinician [facility] e Computed tomography of abdomen and pelvis with contrast 2018 00:00:00 LUIS M ANNA [facility] Encounters Start Date/Time End Date/Time [facility] ID Source 2019-04-13 10:50:00 2019-04-13 14:08:00 Departed Emergency Room [facility] [id number] [facility] 2019-04-09 08:30:00 2019-04-09 12:19:00 Departed Emergency Room [address] [facility] [id number] [facility] 2018-05-07 20:44:00 2018-05-08 00:44:00 Departed Emergency Room [facility] [id number] [facility] 2017-09-20 15:44:00 2017-09-20 20:54:00 Outpatient [facility] [id number] 2017-07-07 23:29:00 2017-07-08 05:31:00 Outpatient [facility] Abreu [facility] [id number] 2016-09-14 22:30:00 2016-09-15 00:13:00 Outpatient Elise Lobo [facility] [id number] 2016-07-12 16:19:00 2016-07-12 23:57:00 Outpatient Jose Tovar [facility] [id number] 2016-05-19 19:46:00 2016-05-20 00:07:00 Outpatient Jonnie Vasquez [facility] [id number] 2015-09-18 16:36:00 2015-09-18 19:33:00 Outpatient Benny Fernandez [facility] [id number] 2015-08-28 22:56:00 2015-08-29 01:28:00 Outpatient Diane Tee [facility] [id number] 2015-08-08 19:35:00 2015-08-08 21:20:00 Outpatient Javi Lovett [facility] [id number] 2014-10-01 10:52:00 2014-10-01 16:20:00 Outpatient Kai Tyson [facility] [id number] Results Test Description Test Time Test Comments Results Result Comments Source CT ABDOMEN/PELVIS W 2019-04-09 11:47:00 [place] [address] Patient Name: JAMMIE LOCKE MR #: [id number] : 1990 Age/Sex: 28/F Req #: [id number] Adm Physician: Ordered by: ANNA ASENCIO DO Report #: [id number] Location: ER Room/Bed: Procedure: [id number] CT/CT ABDOMEN/PELVIS W Exam Date: 04/09/19 Exam Time: 1020 REPORT STATUS: Signed EXAM: CT Abdomen and Pelvis WITH contrast INDICATION: epigastric [id number] COMPARISON: None. TECHNIQUE: Abdomen and pelvis were scanned utilizing a multidetector helical scanner from the lung base to the pubic symphysis after administration of IV contrast. Coronal and sagittal reformations were obtained. Routine protocol was performed. Scan was performed when during portal venous phase. IV CONTRAST: 100 mL of Isovue-370 ORAL CONTRAST: Water RADIATION DOSE: Total DLP: 290.6 mGy*cm Estimated effective dose: (DLP x 0.015 x size factor) mSv COMPLICATIONS: None FINDINGS: LINES and TUBES: None. LOWER THORAX: Unremarkable HEPATOBILIARY: No focal hepatic lesions. No biliary ductal dilation. GALLBLADDER: No radio-opaque stones or sludge. No wall thickening. SPLEEN: No splenomegaly. PANCREAS: No focal masses or ductal dilatation. ADRENALS: No adrenal nodules KIDNEYS/URETERS: Kidneys enhance symmetrically. No hydronephrosis. No cystic or solid mass lesions. No stones. GI TRACT: No abnormal distention, wall thickening, or evidence of bowel obstruction. Appendix is normal. PELVIC ORGANS/BLADDER: The urinary bladder is unremarkable. The uterus is normal in size. Multiple bilateral small ovarian cysts, measuring up to 2 cm on the right. Some of the cysts contain a hyperdense wall and are partially collapsed, for example on the left on coronal image 46 and may represent hemorrhagic cysts. LYMPH NODES: No lymphadenopathy. VESSELS: Unremarkable. PERITONEUM / RETROPERITONEUM: No free air or fluid. BONES: Unremarkable. SOFT TISSUES: Unremarkable. IMPRESSION: Multiple bilateral small ovarian cysts, some of which may represe nt hemorrhagic cysts. No adjacent free fluid. Otherwise, no abnormality within the abdomen and pelvis. Signed by: Dr. Luly Berry M.D. on 04/09/2019 11:54 AM Dictated By: LULY BERRY MD [id number] Transcribed By: ALANA on 04/09/19 115 COPY TO: ANNA ASENCIO DO Sodium Level 2019-04-09 09:50:00 Test Item Sodium Level (test code = 2951-2) 136 136-145 [facility] [id number] 09:50:00* Test Item Value Reference Range Interpretation Comments Potassium Level (test code = 2823-3) 3.8 3.5-5.1 [facility] [id number] 09:50:00* Test Item Value Reference Range Interpretation Comments Chloride Level (test code = 2075-0) 103 98-107 [facility] D[facility]ide [id number] 09:50:00* Test Item Value Reference Range Interpretation Comments Carbon Dioxide Level (test code = 2028-9) 23 22-29 [facility] CenterAnion Epz0325-17-32 09:50:00* Test Item Value Reference Range Interpretation Comments Anion Gap (test code = 68222-2) 13.8 8-16 [facility] CenterBlood Urea Yxndnjti2557-47-31 09:50:00* Test Item Value Reference Range Interpretation Comments Blood Urea Nitrogen (test code = 3094-0) 12 7-26 [facility] CenterCreatinine2019-12-14 09:50:00* Test Item Value Reference Range Interpretation Comments Creatinine (test code = 2160-0) 0.79 0.57-1.11 [facility] CenterBUN/Creatinine Ctzff6082-76-58 09:50:00* Test Item Value Reference Range Interpretation Comments BUN/Creatinine Ratio (test code = 3097-3) 15 6- [facility] CenterEstimat Glomerular Filtration Rate 2019-04-09 09:50:00* Test Item Value Reference Range Interpretation Comments Estimat Glomerular Filtration Rate (test code = 819619930) > 60 >60 Ranges were taken from the National Kidney Disease Education Program and the [facility] literature.Reference ranges:60 or greater: Gmffvs90-18 ( for 3 consecutive months): Chronic kidney disease 15 or less: Kidney failureTexas Vista Medical CenterGlucose Zljue3271-82-36 09:50:00* Test Item Value Reference Range Interpretation Comments Glucose Level (test code = RAB9740) 114 74-118 [facility] CenterCalcium Ubldr6026-30-84 09:50:00* Test Item Value Reference Range Interpretation Comments Calcium Level (test code = 11343-4) 9.5 8.4-10.2 [facility] CenterTotal Vxksczhxz9790-98-24 09:50:00* Test Item Value Reference Range Interpretation Comments Total Bilirubin (test code = 1975-2) 0.8 0.2-1.2 [facility] CenterAspartate Amino Transf (AST/SGOT) 2019-04-09 09:50:00* Test Item Value Reference Range Interpretation Comments Aspartate Amino Transf (AST/SGOT) (test code = Aspartate Amino Transf (AST/SGOT)) 18 5-34 [facility] CenterAlanine Aminotransferase (ALT/SGPT) 2019-04-09 09:50:00* Test Item Value Reference Range Interpretation Comments Alanine Aminotransferase (ALT/SGPT) (test code = 1742-6) 13 0-55 [facility] CenterTotal Mtsmbjk7449-16-54 09:50:00* Test Item Value Reference Range Interpretation Comments Total Protein (test code = 2885-2) 7.6 6.5-8.1 [facility] CenterAlbumin2019-12-14 09:50:00* Test Item Value Reference Range Interpretation Comments Albumin (test code = 1751-7) 3.9 3.5-5.0 [facility] CenterGlobulin2019-12-14 09:50:00* Test Item Value Reference Range Interpretation Comments Globulin (test code = 54301-3) 3.7 2.3-3.5 H [facility] CenterAlbumin/Globulin Tqhga8365-83-66 09:50:00 * Test Item Value Reference Range Interpretation Comments Albumin/Globulin Ratio (test code = 1759-0) 1.1 0.8-2.0 [facility] CenterAlkaline Dyuacihetst6245-45-16 09:50:00* Test Item Value Reference Range Interpretation Comments Alkaline Phosphatase (test code = 6768-6) 50 40-150 [facility] CenterLipase2019-12-14 09:50:00* Test Item Value Reference Range Interpretation Comments Lipase (test code = 3040-3) 10 8-78 [facility] Imepj2380-56-50 09:50:00* Test Item Value Reference Range Interpretation Comments Sodium Level (test code = 2951-2) 136 136-145 [facility] CenterPotassium Htzls4618-59-60 09:50:00* Test Item Value Reference Range Interpretation Comments Potassium Level (test code = 2823-3) 3.8 3.5-5.1 [facility] CenterChloride Lwtqs8227-56-64 09:50:00* Test Item Value Reference Range Interpretation Comments Chloride Level (test code = 2075-0) 103 98-107 [facility] CenterCarbon Dioxide Vobah3976-51-66 09:50:00* Test Item Value Reference Range Interpretation Comments Carbon Dioxide Level (test code = 2028-9) 23 22-29 [facility] CenterAnion Cfr3348-41-52 09:50:00* Test Item Value Reference Range Interpretation Comments Anion Gap (test code = 74598-9) 13.8 8-16 [facility] CenterBlood Urea Ztplgvdg8674-70-19 09:50:00* Test Item Value Reference Range Interpretation Comments Blood Urea Nitrogen (test code = 3094-0) 12 7-26 [facility] CenterCreatinine2019-12-14 09:50:00* Test Item Value Reference Range Interpretation Comments Creatinine (test code = 2160-0) 0.79 0.57-1.11 [facility] CenterBUN/Creatinine Fnfph0335-93-24 09:50:00* Test Item Value Reference Range Interpretation Comments BUN/Creatinine Ratio (test code = 3097-3) 15 6-25 [facility] CenterEstimat Glomerular Filtration Rate 2019-04-09 09:50:00* Test Item Value Reference Range Interpretation Comments Estimat Glomerular Filtration Rate (test code = 402224410) > 60 >60 Ranges were taken from the National Kidney Disease Education Program and the [facility] literature.Reference ranges:60 or greater: Fvkkvx90-03 ( for 3 consecutive months): Chronic kidney disease 15 or less: Kidney failureTexas Vista Medical CenterGlucose Mgyeo1801-14-36 09:50:00* Test Item Value Reference Range Interpretation Comments Glucose Level (test code = MBU9468) 114 74-118 [facility] CenterCalcium Jfemg9269-81-19 09:50:00* Test Item Value Reference Range Interpretation Comments Calcium Level (test code = 58059-3) 9.5 8.4-10.2 [facility] CenterTotal Ykbqzuozu3114-97-66 09:50:00* Test Item Value Reference Range Interpretation Comments Total Bilirubin (test code = 1975-2) 0.8 0.2-1.2 [facility] CenterAspartate Amino Transf (AST/SGOT) 2019-04-09 09:50:00* Test Item Value Reference Range Interpretation Comments Aspartate Amino Transf (AST/SGOT) (test code = Aspartate Amino Transf (AST/SGOT)) 18 5-34 [facility] CenterAlanine Aminotransferase (ALT/SGPT) 2019-04-09 09:50:00* Test Item Value Reference Range Interpretation Comments Alanine Aminotransferase (ALT/SGPT) (test code = 1742-6) 13 0-55 [facility] CenterTotal Fxudpoc9099-81-34 09:50:00* Test Item Value Reference Range Interpretation Comments Total Protein (test code = 2885-2) 7.6 6.5-8.1 [facility] CenterAlbumin2019-12-14 09:50:00* Test Item Value Reference Range Interpretation Comments Albumin (test code = 1751-7) 3.9 3.5-5.0 [facility] CenterGlobulin2019-12-14 09:50:00* Test Item Value Reference Range Interpretation Comments Globulin (test code = 65340-9) 3.7 2.3-3.5 H [facility] CenterAlbumin/Globulin Onsts5218-03-13 09:50:00 * Test Item Value Reference Range Interpretation Comments Albumin/Globulin Ratio (test code = 1759-0) 1.1 0.8-2.0 [facility] CenterAlkaline Odnmksqqprm2232-77-60 09:50:00* Test Item Value Reference Range Interpretation Comments Alkaline Phosphatase (test code = 6768-6) 50 40-150 [facility] CenterLipase2019-12-14 09:50:00* Test Item Value Reference Range Interpretation Comments Lipase (test code = 3040-3) 10 8-78 [facility] CenterUrine HNF1817-68-20 09:32:00* Test Item Value Reference Range Interpretation Comments Urine WBC (test code = 5821-4) 0-5 0-5 [facility] CenterUrine YOC6337-54-84 09:32:00* Test Item Value Reference Range Interpretation Comments Urine RBC (test code = 82128-5) 0-5 0-5 [facility] CenterUrine Gdaxatuu5728-13-70 09:32:00* Test Item Value Reference Range Interpretation Comments Urine Bacteria (test code = 42988-9) FEW NONE [facility] CenterUrine Epithelial Dkrtr4226-35-05 09:32:00 * Test Item Value Reference Range Interpretation Comments Urine Epithelial Cells (test code = 11871-4) MODERATE NONE [facility] CenterUrine OZA4223-56-49 09:32:00* Test Item Value Reference Range Interpretation Comments Urine WBC (test code = 5821-4) 0-5 0-5 [facility] CenterUrine CYA0160-89-77 09:32:00* Test Item Value Reference Range Interpretation Comments Urine RBC (test code = 53400-3) 0-5 0-5 [facility] CenterUrine Elspmpnh2412-84-63 09:32:00* Test Item Value Reference Range Interpretation Comments Urine Bacteria (test code = 92276-3) FEW NONE [facility] CenterUrine Epithelial Tblyk6133-45-50 09:32:00 * Test Item Value Reference Range Interpretation Comments Urine Epithelial Cells (test code = 80864-4) MODERATE NONE [facility] CenterWhite Blood Lldjm2338-67-34 09:14:00* Test Item Value Reference Range Interpretation Comments White Blood Count (test code = 6690-2) 14.81 4.8-10.8 H [facility] CenterRed Blood Trcja8343-15-60 09:14:00* Test Item Value Reference Range Interpretation Comments Red Blood Count (test code = 789-8) 4.71 3.6-5.1 [facility] CenterHemoglobin2019-12-14 09:14:00* Test Item Value Reference Range Interpretation Comments Hemoglobin (test code = 28214-7) 13.4 12.0-16.0 [facility] CenterHematocrit2019-12-14 09:14:00* Test Item Value Reference Range Interpretation Comments Hematocrit (test code = 4544-3) 40.4 34.2-44.1 [facility] CenterMean Corpuscular Ugybuc9782-37-73 09:14:00* Test Item Value Reference Range Interpretation Comments Mean Corpuscular Volume (test code = 787-2) 85.8 81-99 [facility] CenterMean Corpuscular Bwxftjtums4017-98-21 09:14:00* Test Item Value Reference Range Interpretation Comments Mean Corpuscular Hemoglobin (test code = 785-6) 28.5 28-32 [facility] CenterMean Corpuscular Hemoglobin Concent 2019-04-09 09:14:00* Test Item Value Reference Range Interpretation Comments Mean Corpuscular Hemoglobin Concent (test code = 786-4) 33.2 31-35 [facility] CenterRed Cell Distribution Srjio5201-78-30 09:14:00* Test Item Value Reference Range Interpretation Comments Red Cell Distribution Width (test code = 29061-9) 12.7 11.7 -14.4 [facility] CenterPlatelet Eowwy2541-63-38 09:14:00* Test Item Value Reference Range Interpretation Comments Platelet Count (test code = 777-3) 258 140-360 [facility] CenterNeutrophils (%) (Auto)2019-04-09 09:14:00 * Test Item Value Reference Range Interpretation Comments Neutrophils (%) (Auto) (test code = 62847-0) 83.7 38.7-80.0 H [facility] CenterLymphocytes (%) (Auto)2019-04-09 09:14:00 * Test Item Value Reference Range Interpretation Comments Lymphocytes (%) (Auto) (test code = 736-9) 8.5 18.0-39.1 L [facility] CenterMonocytes (%) (Auto)2019-04-09 09:14:00* Test Item Value Reference Range Interpretation Comments Monocytes (%) (Auto) (test code = 5905-5) 5.9 4.4-11.3 [facility] CenterEosinophils (%) (Auto)2019-04-09 09:14:00 * Test Item Value Reference Range Interpretation Comments Eosinophils (%) (Auto) (test code = 713-8) 1.2 0.0-6.0 [facility] CenterBasophils (%) (Auto)2019-04-09 09:14:00* Test Item Value Reference Range Interpretation Comments Basophils (%) (Auto) (test code = 706-2) 0.3 0.0-1.0 [facility] CenterIM GRANULOCYTES %2019-04-09 09:14:00* Test Item Value Reference Range Interpretation Comments IM GRANULOCYTES % (test code = IM GRANULOCYTES %) 0.4 0.0- 1.0 [facility] CenterNeutrophils # (Auto)2019-04-09 09:14:00* Test Item Value Reference Range Interpretation Comments Neutrophils # (Auto) (test code = 751-8) 12.4 2.1-6.9 H [facility] CenterLymphocytes # (Auto)2019-04-09 09:14:00* Test Item Value Reference Range Interpretation Comments Lymphocytes # (Auto) (test code = 48929-7) 1.3 1.0-3.2 [facility] CenterMonocytes # (Auto)2019-04-09 09:14:00* Test Item Value Reference Range Interpretation Comments Monocytes # (Auto) (test code = 742-7) 0.9 0.2-0.8 H [facility] CenterEosinophils # (Auto)2019-04-09 09:14:00* Test Item Value Reference Range Interpretation Comments Eosinophils # (Auto) (test code = 711-2) 0.2 0.0-0.4 [facility] CenterBasophils # (Auto)2019-04-09 09:14:00* Test Item Value Reference Range Interpretation Comments Basophils # (Auto) (test code = 704-7) 0.0 0.0-0.1 [facility] CenterAbsolute Immature Granulocyte (auto 2019-04-09 09:14:00* Test Item Value Reference Range Interpretation Comments Absolute Immature Granulocyte (auto (to t code = Absolute Immature Granulocyte (auto) 0.06 0-0.1 [facility] CenterWhite Blood Erkkc0588-46-53 09:14:00* Test Item Value Reference Range Interpretation Comments White Blood Count (test code = 6690-2) 14.81 4.8-10.8 H [facility] CenterRed Blood Hnftb2716-04-52 09:14:00* Test Item Value Reference Range Interpretation Comments Red Blood Count (test code = 789-8) 4.71 3.6-5.1 [facility] CenterHemoglobin2019-12-14 09:14:00* Test Item Value Reference Range Interpretation Comments Hemoglobin (test code = 31817-3) 13.4 12.0-16.0 [facility] CenterHematocrit2019-12-14 09:14:00* Test Item Value Reference Range Interpretation Comments Hematocrit (test code = 4544-3) 40.4 34.2-44.1 [facility] CenterMean Corpuscular Furcdw2715-02-53 09:14:00* Test Item Value Reference Range Interpretation Comments Mean Corpuscular Volume (test code = 787-2) 85.8 81-99 [facility] CenterMean Corpuscular Wemsapmvkv7581-06-55 09:14:00* Test Item Value Reference Range Interpretation Comments Mean Corpuscular Hemoglobin (test code = 785-6) 28.5 28-32 [facility] CenterMean Corpuscular Hemoglobin Concent 2019-04-09 09:14:00* Test Item Value Reference Range Interpretation Comments Mean Corpuscular Hemoglobin Concent (test code = 786-4) 33.2 31-35 [facility] CenterRed Cell Distribution Omtpl7934-12-11 09:14:00* Test Item Value Reference Range Interpretation Comments Red Cell Distribution Width (test code = 41346-5) 12.7 11.7 -14.4 [facility] CenterPlatelet Auowr8497-75-81 09:14:00* Test Item Value Reference Range Interpretation Comments Platelet Count (test code = 777-3) 258 140-360 [facility] CenterNeutrophils (%) (Auto)2019-04-09 09:14:00 * Test Item Value Reference Range Interpretation Comments Neutrophils (%) (Auto) (test code = 73320-0) 83.7 38.7-80.0 H [facility] CenterLymphocytes (%) (Auto)2019-04-09 09:14:00 * Test Item Value Reference Range Interpretation Comments Lymphocytes (%) (Auto) (test code = 736-9) 8.5 18.0-39.1 L [facility] CenterMonocytes (%) (Auto)2019-04-09 09:14:00* Test Item Value Reference Range Interpretation Comments Monocytes (%) (Auto) (test code = 5905-5) 5.9 4.4-11.3 [facility] CenterEosinophils (%) (Auto)2019-04-09 09:14:00 * Test Item Value Reference Range Interpretation Comments Eosinophils (%) (Auto) (test code = 713-8) 1.2 0.0-6.0 [facility] CenterBasophils (%) (Auto)2019-04-09 09:14:00* Test Item Value Reference Range Interpretation Comments Basophils (%) (Auto) (test code = 706-2) 0.3 0.0-1.0 [facility] CenterIM GRANULOCYTES %2019-04-09 09:14:00* Test Item Value Reference Range Interpretation Comments IM GRANULOCYTES % (test code = IM GRANULOCYTES %) 0.4 0.0- 1.0 [facility] CenterNeutrophils # (Auto)2019-04-09 09:14:00* Test Item Value Reference Range Interpretation Comments Neutrophils # (Auto) (test code = 751-8) 12.4 2.1-6.9 H [facility] CenterLymphocytes # (Auto)2019-04-09 09:14:00* Test Item Value Reference Range Interpretation Comments Lymphocytes # (Auto) (test code = 97936-2) 1.3 1.0-3.2 [facility] CenterMonocytes # (Auto)2019-04-09 09:14:00* Test Item Value Reference Range Interpretation Comments Monocytes # (Auto) (test code = 742-7) 0.9 0.2-0.8 H [facility] CenterEosinophils # (Auto)2019-04-09 09:14:00* Test Item Value Reference Range Interpretation Comments Eosinophils # (Auto) (test code = 711-2) 0.2 0.0-0.4 [facility] CenterBasophils # (Auto)2019-04-09 09:14:00* Test Item Value Reference Range Interpretation Comments Basophils # (Auto) (test code = 704-7) 0.0 0.0-0.1 [facility] CenterAbsolute Immature Granulocyte (auto 2019-04-09 09:14:00* Test Item Value Reference Range Interpretation Comments Absolute Immature Granulocyte (auto (to t code = Absolute Immature Granulocyte (auto) 0.06 0-0.1 [facility] CenterUrine Zlfy7121-76-26 09:13:00* Test Item Value Reference Range Interpretation Comments Urine Test (test code = 2106-3) NEGATIVE NEGATIVE [facility] CenterUrine Iglz1919-68-18 09:13:00* Test Item Value Reference Range Interpretation Comments Urine Test (test code = 2106-3) NEGATIVE NEGATIVE [facility] CenterUrine Ziqmw3340-46-24 09:11:00* Test Item Value Reference Range Interpretation Comments Urine Color (test code = 5778-6) YELLOW YELLOW [facility] CenterUrine Wqtubmt5767-70-82 09:11:00* Test Item Value Reference Range Interpretation Comments Urine Clarity (test code = 98402-5) CLEAR CLEAR [facility] CenterUrine Specific Qhvevia0141-40-84 09:11:00 * Test Item Value Reference Range Interpretation Comments Urine Specific [place] (test code = 5811-5) 1.005 1.010-1.02 5 L [facility] CenterUrine yU5720-42-28 09:11:00* Test Item Value Reference Range Interpretation Comments Urine pH (test code = 60334-4) 6 5-7 [facility] CenterUrine Leukocyte Gpkzgtrk4886-36-12 09:11:00* Test Item Value Reference Range Interpretation Comments Urine Leukocyte Esterase (test code = 5799-2) NEGATIVE NEGATIVE [facility] Irgbptj8652-89-24 09:11:00* Test Item Value Reference Range Interpretation Comments Urine Nitrite (test code = 96839-3) NEGATIVE NEGATIVE [facility] CenterUrine Pktvxwx5453-65-75 09:11:00* Test Item Value Reference Range Interpretation Comments Urine Protein (test code = 5804-0) NEGATIVE NEGATIVE [facility] Glucose (UA)2019-04-09 09:11:00* Test Item Value Reference Range Interpretation Comments Urine Glucose (UA) (test code = 2349-9) NEGATIVE NEGATIVE [facility] Pdukclr2395-60-54 09:11:00* Test Item Value Reference Range Interpretation Comments Urine Ketones (test code = 81729-4) NEGATIVE NEGATIVE [facility] Aegwahaygcxa3179-93-78 09:11:00* Test Item Value Reference Range Interpretation Comments Urine Urobilinogen (test code = 01194-6) 0.2 0.2-1 [facility] Tnurtpjbp3979-83-44 09:11:00* Test Item Value Reference Range Interpretation Comments Urine Bilirubin (test code = 1978-6) NEGATIVE NEGATIVE [facility] CenterU[facility] Fwqut3212-94-82 09:11:00* Test Item Value Reference Range Interpretation Comments Urine Blood (test code = 87454-3) NEGATIVE NEGATIVE [facility] CenterUrine Oblhb1525-05-72 09:11:00* Test Item Value Reference Range Interpretation Comments Urine Color (test code = 5778-6) YELLOW YELLOW [facility] CenterUrine Ncfzlfd7728-66-37 09:11:00* Test Item Value Reference Range Interpretation Comments Urine Clarity (test code = 87275-2) CLEAR CLEAR [facility] Specific Gynkpra5704-58-61 09:11:00 * Test Item Value Reference Range Interpretation Comments Urine Specific [place] (test code = 5811-5) 1.005 1.010-1.02 5 L [facility] CenterUrine gO8059-20-28 09:11:00* Test Item Value Reference Range Interpretation Comments Urine pH (test code = 51034-2) 6 5-7 [facility] CenterUrine Leukocyte Jvvmnxkj0956-63-36 09:11:00* Test Item Value Reference Range Interpretation Comments Urine Leukocyte Esterase (test code = 5799-2) NEGATIVE NEGATIVE [facility] Gkhgzki4012-49-14 09:11:00* Test Item Value Reference Range Interpretation Comments Urine Nitrite (test code = 90757-1) NEGATIVE NEGATIVE [facility] Illwenz8526-74-65 09:11:00* Test Item Value Reference Range Interpretation Comments Urine Protein (test code = 5804-0) NEGATIVE NEGATIVE [facility] Glucose (UA)2019-04-09 09:11:00* Test Item Value Reference Range Interpretation Comments Urine Glucose (UA) (test code = 2349-9) NEGATIVE NEGATIVE [facility] Ueibqvk8848-78-80 09:11:00* Test Item Value Reference Range Interpretation Comments Urine Ketones (test code = 46606-7) NEGATIVE NEGATIVE [facility] Lebmvcrgijgo3626-64-56 09:11:00* Test Item Value Reference Range Interpretation Comments Urine Urobilinogen (test code = 35259-4) 0.2 0.2-1 [facility] Xrxzgxnst8932-61-93 09:11:00* Test Item Value Reference Range Interpretation Comments Urine Bilirubin (test code = 1978-6) NEGATIVE NEGATIVE [facility] Jfsfb5750-60-70 09:11:00* Test Item Value Reference Range Interpretation Comments Urine Blood (test code = 04614-7) NEGATIVE NEGATIVE [facility] Zntq0850-56-87 00:32:00* Test Item Value Reference Range Interpretation Comments Urine Test (test code = 2106-3) NEGATIVE NEGATIVE [facility] CenterU[facility] Kdszj6783-68-56 22:48:00* Test Item Value Reference Range Interpretation Comments Urine Color (test code = 5778-6) YELLOW YELLOW [facility] CenterUrine Ljfaget9774-76-11 22:48:00* Test Item Value Reference Range Interpretation Comments Urine Clarity (test code = 29880-5) SL CLOUDY CLEAR [facility] CenterUrine Specific Mexkfgx0853-16-36 22:48:00 * Test Item Value Reference Range Interpretation Comments Urine Specific [place] (test code = 5811-5) 1.025 1.010-1.02 5 [facility] CenterU[facility] vY8714-19-80 22:48:00* Test Item Value Reference Range Interpretation Comments Urine pH (test code = 49380-4) 6 5-7 [facility] CenterU[facility] Leukocyte Lxkjqwcl6913-47-87 22:48:00* Test Item Value Reference Range Interpretation Comments Urine Leukocyte Esterase (test code = 5799-2) NEGATIVE NEGATIVE [facility] CenterUrine Xjfrlhr6411-63-55 22:48:00* Test Item Value Reference Range Interpretation Comments Urine Nitrite (test code = 76794-5) NEGATIVE NEGATIVE [facility] CenterU[facility] Kwtrbaw4945-68-33 22:48:00* Test Item Value Reference Range Interpretation Comments Urine Protein (test code = 5804-0) NEGATIVE NEGATIVE [facility] CenterUrine Glucose (UA)2018-05-07 22:48:00* Test Item Value Reference Range Interpretation Comments Urine Glucose (UA) (test code = 2349-9) NEGATIVE NEGATIVE [facility] CenterU[facility] Sigyzaj5655-67-16 22:48:00* Test Item Value Reference Range Interpretation Comments Urine Ketones (test code = 34065-3) NEGATIVE NEGATIVE [facility] CenterU[facility] Uetziphjvgie0795-24-26 22:48:00* Test Item Value Reference Range Interpretation Comments Urine Urobilinogen (test code = 90675-5) 0.2 0.2-1 [facility] Xpottqpqx3614-35-50 22:48:00* Test Item Value Reference Range Interpretation Comments Urine Bilirubin (test code = 1978-6) NEGATIVE NEGATIVE [facility] Retrd2839-21-58 22:48:00* Test Item Value Reference Range Interpretation Comments Urine Blood (test code = 90626-4) 3+ NEGATIVE H [facility] BGQ0751-36-41 22:48:00* Test Item Value Reference Range Interpretation Comments Urine WBC (test code = 5821-4) 0-5 0-5 [facility] HJG6959-04-63 22:48:00* Test Item Value Reference Range Interpretation Comments Urine RBC (test code = 68484-0) 6-10 0-5 H [facility] Tqymfffu2148-67-22 22:48:00* Test Item Value Reference Range Interpretation Comments Urine Bacteria (test code = 11803-2) MODERATE NONE H [facility] CenterU[facility] Epithelial Klyrg0117-00-55 22:48:00 * Test Item Value Reference Range Interpretation Comments Urine Epithelial Cells (test code = 65684-4) MODERATE NONE [facility] Mejdi0945-53-44 22:48:00* Test Item Value Reference Range Interpretation Comments Urine Mucus (test code = 8247-9) MANY RARE H [facility] CenterRAPID2018-03-14 05:20:00Negative (07/08/17 12:20 AM)[facility] - AQVHAYRH9135-67-63 05:20:00Negative (07/08/17 12:20 AM)[facility]annVIR[facility] - MTUGMAHU7325-64-76 05:20:00Negative (07/08/17 12:20 AM)[facility] HermannCHEM OFRSB1929-96-65 04:09:00Negative (09/14/16 11:09 PM)[facility] UzuglzdQVUVMPDRMY1868-85-80 04:09:008.3[facility] 2016-[facility] 04:09:000.1[facility] XdsbwuqUPBFRUFRCU3299-83-79 04:09:002.7[facility] AsozkusCAYXQBOSMQ5727-05-31 04:09:005.7[facility] NqybdgjWCWBPBUZXD1629-76-52 04:09:0012.0[facility] InaaebwRJGODDTPIE1981-77-63 04:09:000.3[facility] UYTDDUMCOS4048-16-22 04:09:000.6[facility] XfjjjowUUKOJESSVX8944-22-02 04:09:001.3 [facility] SmfclywAJQIEVYNVH6651-66-78 04:09:0079.5[facility]annHEMATOLOGY 2016-09-15 04:09:0034.8[facility] XmvafiaPIIQXKNGYD6701-22-03 04:09:00* Test Item Value Reference Range Interpretation Comments MCH (test code = MCH) 30.0 pg 27.0-31.0 [facility] OfzkfajDXJPANFBHR1108-66-12 04:09:0086.1[facility]annHEMATOLOGY 2016-09-15 04:09:0030.5[facility] AqxiioqSEZRLTUYAW6582-17-20 04:09:0010.6[facility] AcgzcmyKVEANRMFPT7314-54-32 04:09:007.6[facility] ZedfbppHVFOSGKFQL3086-90-48 04:09:91578Fsincvna WrxwihiTKVQIIZCEW7184-68-49 04:09:0013.3[facility] PCKZUNQYTF4874-45-73 04:09:003.53[facility] FjpazfiGRHFASRNCA2804-65-50 04:09:00 10.4[facility] OTFHC7312-51-65 04:09:00Negative (09/14/16 11:09 PM)[facility] CATCI8408-69-35 04:09:002[facility] RNNGA2065-43-39 04:09:00<1[facility] DCWPC0033-34-57 04:09:00 Negative *NA*(09/14/16 11:09 PM)[facility] HTBLW8936-42-23 04:09:00Negative (09/14/16 11:09 PM)[facility] PWPXA7209-67-74 04:09:00Negative (09/14/16 11:09 PM)[facility] FQWLE9213-37-71 04:09:00Yellow *NA*(09/14/16 11:09 PM)[facility] VNKSW5687-02-22 04:09:001.019[facility] ACRCT6568-54-25 04:09:00Clear (09/14/16 11:09 PM)[facility] KCTJR2094-29-95 04:09:006.0[facility] MOLECULAR KPAIUBKOTO8885-38-46 23:40:00Negative *NA*(07/12/16 6:40 PM)[facility]ann[facility]LE[facility]ULAR ADHZHZAPPC3290-39-84 23:40:00Endocervix *NA*(07/12/16 6:40 PM) [facility] EFFXFWPEKN4755-72-19 23:40:00Negative *NA*(07/12/16 6:40 PM)[facility] EELG4171-67-58 23:33:23Positive *ABN*(07/12/16 6:33 PM)[facility] EnabsdwTQXQPOWNVQBTW6574-46-48 23:26:1495618Zhullmhb HermannURINE AND WORWQ4358-23-06 22:00:007.0[facility] MWOEG4753-15-41 22:00:001.002[facility] MPVOZ9078-02-40 22:00:00Negative *NA*(07/12/16 5:00 PM)[facility] TGKMB8689-74-51 22:00:00Negative (07/12/16 5:00 PM)[facility] ZNBQU2189-14-18 22:00:00Negative (07/12/16 5:00 PM)[facility] OAWPD8950-65-87 22:00:00Negative (07/12/16 5:00 PM)[facility] VPNOJ3523-50-80 22:00:00Clear (07/12/16 5:00 PM)[facility] RIZKH2627-30-47 22:00:001[facility] TJSAB9931-39-70 22:00:001[facility]annCHEM RUMED1377-87-43 21:41:000.8[facility]annCHEM DVSFE4068-51-20 21:41:004.1[facility]annCHEM PIVYY0094-00-26 21:41:0025[facility]annCHEM EOTXD7055-79-58 21:41:0011.0 [facility]annCHE[facility] KHJOB3783-45-25 21:41:39515Ertzkiln HermannCHEM PANEL 2016-07-12 21:41:0014[facility]annCHE[facility] PPPGL7745-43-97 21:41:0017[facility]annCHE[facility] LZAWM5475-40-13 21:41:00<0.1[facility]annCHE[facility] QPTIK6231-42-69 21:41:0047[facility]annCHE[facility] TSVBP2560-85-92 21:41:0083[facility]annCHE[facility] WDXPM2627-73-73 21:41:003.1[facility]annCHEM DEHIL3314-53-73 21:41:007.2 [facility]annCHE[facility] LSSHG2289-18-15 21:41:009.2[facility]annCHEM PANEL 2016-07-12 21:41:0027[facility]annCHEM IUXNR9530-31-10 21:41:55346Jodosryg HermannCHEM MLEWB5042-12-94 21:41:004.0[facility]annCHEM SMCDS0494-45-01 21:41:0014[facility]annCHEM QXLRO7711-55-49 21:41:000.57[facility]annCHEM SOJLV2723-35-01 21:41:25009Zjbeabay CpbqhibEJTLZWQDUL4079-71-93 21:41:000.3 [facility] HxmmqgnBYEPOQWGVF3870-91-92 21:41:0018.3[facility]annHEMATOLOGY 2016-07-12 21:41:0068.9[facility] JximvlhMBWZELBTSS3864-21-59 21:41:004.4[facility] RzhzadbSUIJHGFJPB1748-35-42 21:41:008.1[facility] CvcqcaaQWEMANNFIU8337-17-49 21:41:000.9[facility] PxtckjaJQEVEEYCLW1832-24-23 21:41:001.9[facility] IGVCDEIKXB5161-67-79 21:41:000.5[facility] NqphqneGBWNIWCXPA6711-73-39 21:41:007.3 [facility] AwvxietYGWOQBTKLN0545-62-24 21:41:007.8[facility]annHEMATOLOGY 2016-07-12 21:41:11457Elqlmupo EikaofvHPBNJXGZED4154-03-30 21:41:00* Test Item Value Reference Range Interpretation Comments MCH (test code = MCH) 29.2 pg 27.0-31.0 [facility] RderbjcUJPDDCXEYC9743-02-52 21:41:0086.1[facility]annHEMATOLOGY 2016-07-12 21:41:0014.2[facility] NzdjahsWWRPYSYHWM8511-34-52 21:41:0033.9[facility] GuyunxdBTHTXYUVLG4766-67-21 21:41:0010.6[facility] JuywyukRVIVGVFEAI4486-67-78 21:41:003.82[facility] ErfxaesLBGKVOXVQE8542-04-66 21:41:0032.9[facility] WDNSXPABSK9833-99-12 21:41:0011.1[facility] HEOBW3674-16-42 05:09:301[facility] VXBPP0241-10-80 05:09:301[facility] AND VFOMY5820-30-13 05:09:301.011[facility] UHMNO6540-08-49 05:09:30Clear (05/19/16 11:09 PM)[facility] ZQPSI7109-31-49 05:09:30Negative *NA*(05/19/16 11:09 PM)[facility] CTFYS2916-60-89 05:09:306.0[facility] CHOAB1059-06-82 05:09:30Negative (05/19/16 11:09 PM)[facility] HAUPA3123-90-18 05:09:30Negative (05/19/16 11:09 PM)[facility] LNCAA3024-00-79 05:09:30Negative (05/19/16 11:09 PM)[facility]annCHEM VLRDO9470-33-90 03:10:002.1[facility]annCHEM CCQIS0202-17-60 03:10:003.8[facility]annCHEM DRWDY9413-91-08 03:10:000.9 [facility]annCHEM BHKLN0807-89-63 03:10:0013.1[facility]annCHEM PANEL 2016-05-20 03:10:0024[facility]annCHEM JPHQR6484-21-33 03:10:27915Mvswkryz HermannCHEM QHMXB0896-52-48 03:10:007.4[facility]annCHEM XTJGJ1739-16-16 03:10:003.6[facility]annCHEM PTAVH0304-64-86 03:10:0016[facility]annCHEM PVFJQ6656-00-58 03:10:0016[facility]annCHEM VQKTF0026-80-80 03:10:0041 [facility]annCHEM XILKA2110-89-51 03:10:000.2[facility]annCHEM PANEL 2016-05-20 03:10:86504Ccznmsss HermannCHEM OGJHM8977-89-04 03:10:004.1[facility]annCHEM MNXUI3936-27-50 03:10:97834Oioibxuz HermannCHEM RHMQC2211-68-69 03:10:0022[facility]annCHEM IKYDL4842-76-62 03:10:009.1[facility]annCHEM JEXMP6687-21-41 03:10:0013[facility]annCHEM HHYPW5390-20-58 03:10:000.54 [facility]annCHEM QDLUS7751-40-40 03:10:0080[facility]annCHEM PANEL 2016-05-20 03:10:79586Gnfxegfp MbuvlhdGZAQWLIAVADOB4918-44-01 03:10:15375102 [facility] QoprrhqIPUOSDLONV9686-79-67 03:10:008.4[facility]annHEMATOLOGY 2016-05-20 03:10:19119Whlehpmm RipacrkLEDUIIRDER0000-24-75 03:10:00* Test Item Value Reference Range Interpretation Comments MCH (test code = MCH) 28.1 pg 27.0-31.0 [facility] JhchzhiRXHFLDLBDP3698-29-21 03:10:0013.5[facility]annHEMATOLOGY 2016-05-20 03:10:0033.3[facility] HhxzxmyBPDPDHPZVQ6623-35-15 03:10:0013.4[facility] WecvtarZFZRUFLWIL0557-34-58 03:10:0036.0[facility] AyiseolGCQZPTYZRT0257-76-41 03:10:004.25[facility] WfsfixyIRRIMJPAKP5620-21-71 03:10:0084.6[facility] NHADGUHIMS7288-81-12 03:10:0012.0[facility] FqzyxqjRHAVXTYUCB1309-68-45 03:10:00 74.0[facility] GscejghILAESXSFBZ3136-95-15 03:10:001.9[facility]annHEMATOLOGY 2016-05-20 03:10:000.8[facility] TkfejnkPCFZLNCDTH5604-56-87 03:10:000.7[facility] VkurwceXYNEIPHHVO7717-49-30 03:10:005.4[facility] FvrfvmyIIMUSZMSIE3367-50-59 03:10:0014.5[facility] HezlhiaZIEUMTLLID7045-74-54 03:10:000.4[facility] KNZPWDDQWI4133-62-51 03:10:005.7[facility] IlwowpvANNJHKHITR1790-02-66 03:10:009.9 [facility] MlkluhgPWPDGNGTMTPK6702-24-17 22:22:70180Dujpqsey HermannELECTROLYTES 2015-09-18 22:22:004.2[facility] KvdwelpGMXTGKWXGSCO9456-88-33 22:22:16580Cgvuxmhm BaakdlyPRVELJNPWQYE1920-91-98 22:22:0025[facility] OytcvxoMJOYHQQSAQCP5502-70-78 22:22:16166Vtveysgz OtkdmpsGZUNWXOERVAH7237-92-32 22:22:008.7[facility] GJTZBZICMEIG4545-75-51 22:22:000.84[facility] PglowdsNRZCEQPRZELX3242-88-30 22:22:003.8[facility] YnqdxfbRYCRCINFLOWC6636-19-81 22:22:0013[facility] YWMOHTMZBXGJ0180-45-33 22:22:0017[facility] DinezgkCSSIQARFPCWC4484-00-08 22:22:00 17[facility] GavwwjcGEUFIEDZAXKO1223-86-95 22:22:007.8[facility] HermannELECTROLYTES 2015-09-18 22:22:0098[facility] GyrzvruXHYJIPUUFDPB1480-06-42 22:22:000.3[facility] DxiqxrgABZJJFWAYUUI4311-22-73 22:22:0058[facility] YeruqseFSJNYMSSKDZF8440-65-63 22:22:004.0[facility] NexqhlsFXEDQXJKNPSR5392-98-78 22:22:001.0[facility] ZTGRSCXAJCHT2121-92-36 22:22:0012.2[facility] MqpluftFXYVJBQKTQYD1020-01-25 22:22:0015[facility] XepwqvhGRWIYUSQTJUPJ7002-08-66 22:22:00<1[facility] CPRCZSQFMF7010-47-06 22:22:008.3[facility] ZeyizgyXUWYPIINCT1941-94-58 22:22:68945 [facility] RtnrpnyUYZRYABMNE3167-16-80 22:22:0012.8[facility]annHEMATOLOGY 2015-09-18 22:22:004.52[facility] GsnykfqBQXEEDZZWN8680-46-46 22:22:0010.1[facility] JvdgcxsLNPOEVZVRN0709-13-20 22:22:0032.7[facility] WddhkygUMIGLIYZWU3982-40-03 22:22:0086.9[facility] YcidrsfPPGXHPZCET1493-53-71 22:22:0014.2[facility] FCNDQOLRYL2946-61-78 22:22:00* Test Item Value Reference Range Interpretation Comments MCH (test code = MCH) 28.4 pg 27.0-31.0 [facility] RgkyjfhDQPKZZWQCC1392-83-70 22:22:0039.3[facility]annHEMATOLOGY 2015-09-18 22:22:000.1[facility] VwklykoBAMBLVRHDG6041-90-08 22:22:000.4[facility] NtzaqvsRFEJSYCYMO7037-58-33 22:22:006.3[facility] KjspkjhCSXFWFXVPV0743-50-19 22:22:002.5[facility] RvtybhmRHCGGERBMP0455-88-26 22:22:000.6[facility] MXHPOCTLIC2606-65-56 22:22:000.8[facility] ImykwlgMAJXRMZAVN3521-68-53 22:22:007.7 [facility] JjpquoeHOSZIFIDDE4361-70-52 22:22:0025.1[facility]annHEMATOLOGY 2015-09-18 22:22:0062.4[facility] UpgkuqxQCKKQSGSAC8700-37-62 22:22:004.2[facility] AND HQKTQ7723-85-51 22:22:001.005[facility] STOOL 2015-09-18 22:22:00Clear (09/18/15 5:22 PM)[facility] STOOL 2015-09-18 22:22:005.0[facility] QPPTV1513-39-80 22:22:00Negative *NA*(09/18/15 5:22 PM)[facility] ZEECV4011-92-63 22:22:00Large *ABN*(09/18/15 5:22 PM)[facility] MAGCS7940-96-48 22:22:00Negative (09/18/15 5:22 PM)[facility] MWGHH9528-81-43 22:22:001[facility] YYROR5116-08-70 22:22:008[facility] STOOL 2015-09-18 22:22:00Negative (09/18/15 5:22 PM)[facility] STOOL 2015-09-18 22:22:002[facility] XMZU6360-50-46 22:22:00Negative (09/18/15 5:22 PM)[facility]annMOLECULAR LJWRFPZBOD7297-91-93 18:11:00Negative 4*NA*(10/01/14 1:11 PM)[facility]annMOLECULAR PRUENYCTAC1183-63-44 18:11:00 Endocervix *NA*(10/01/14 1:11 PM)[facility]annMOLECULAR QNMSIPCZRD9091-04-38 18:11:00Negative 3*NA*(10/01/14 1:11 PM)[facility]annMOLECULAR DIAGNOSTIC 2014-10-01 18:11:00Endocervix *NA*(10/01/14 1:11 PM)[facility] NUYDQ1451-38-20 18:11:00Negative (10/01/14 1:11 PM)[facility] STOOL 2014-10-01 18:11:001[facility] UJASI8956-12-90 18:11:001[facility] LWJCM5211-55-11 18:11:00Negative *NA*(10/01/14 1:11 PM)[facility] BSSFX9319-90-72 18:11:00Negative (10/01/14 1:11 PM)[facility] BGQXZ5716-43-73 18:11:00Negative (10/01/14 1:11 PM)[facility] DZZAB3383-00-51 18:11:001.012[facility] STOOL 2014-10-01 18:11:005.0[facility] YLWCJ2861-23-15 18:11:00Clear (10/01/14 1:11 PM)[facility] XZCT6875-96-43 18:11:00Negative (10/01/14 1:11 PM)[facility] HermannCHEM PSFHQ6214-37-59 16:26:0035[facility] HermannCHEM YFHVZ6237-51-84 16:26:0073[facility]annCHEM QUYUV9793-89-26 16:26:002.0 [facility]annCHEM XVGUS9207-34-99 16:26:003.6[facility] HermannCHEM PANEL 2014-10-01 16:26:0018[facility] HermannCHEM OYIBV8216-55-14 16:26:009.0[facility] HermannCHEM ZPOLK8248-93-77 16:26:001.0[facility]annCHEM QYBSU1878-64-03 16:26:004.0[facility]annCHEM UFADH0837-69-16 16:26:19248Vktyalxk HermannCHEM ZRFDN9571-53-02 16:26:22352Kjdxjggg HermannCHEM CZJPY9533-35-41 16:26:90659 [facility]annCHEM MCLUR0091-75-62 16:26:0092[facility]annCHEM PANEL 2014-10-01 16:26:0014[facility] HermannCHEM BNZHX4739-30-71 16:26:000.5[facility]annCHEM MXVVA1237-43-70 16:26:0053[facility]annCHEM MEZQP6549-31-34 16:26:0015[facility]annCHEM HXLQX2196-05-84 16:26:008.8[facility] HermannCHEM UVCMU7687-72-46 16:26:0030[facility]annCHEM BCTGK8731-08-14 16:26:000.8 [facility]annCHEM DOGYV2779-05-22 16:26:0020[facility]annCHEM PANEL 2014-10-01 16:26:003.7[facility]annCHEM TLSMW8255-61-13 16:26:007.3[facility] DcjphqoTJTWJHVSIOQWH7481-16-60 16:26:00Negative *NA*(10/01/14 11:26 AM)[facility] YheabsoFEMJTEXHIE8139-90-82 16:26:000.7[facility] ApbbkloIIYNPEPLUR3097-61-87 16:26:000.3[facility] RenbzvsQNGCZLLOGB4713-54-82 16:26:0027.6[facility] NRJDOWMDRR9168-76-39 16:26:007.7[facility] LegsckvOOOSZIBULO2328-09-84 16:26:00 60.5[facility] LvljxhpIHAQPSWRBK0630-19-87 16:26:005.3[facility]annHEMATOLOGY 2014-10-01 16:26:002.4[facility] XkvovdqHJNEAMUXKK2214-56-47 16:26:004.0[facility] WpzhlydMLQIUUZCKN7416-25-46 16:26:000.2[facility] UpjauxeKFRLVREURR3657-33-55 16:26:0039.5[facility] EthaxmnZECXBKVIFQ7466-31-62 16:26:00* Test Item Value Reference Range Interpretation Comments MCH (test code = MCH) 29.7 pg 27.0-31.0 [facility] ShrozaoLYZDWDEJOZ3146-28-29 16:26:0086.6[facility]annHEMATOLOGY 2014-10-01 16:26:0013.0[facility] PlsmfffFVGQQSISOW5813-70-02 16:26:0034.3[facility] KithkigAJEVLAEATL9693-01-32 16:26:008.0[facility] GigzgvcAEQGWIAVAY4624-75-56 16:26:64344Nnsxnmys DmzmxuoRVOIWZYRNK7456-17-32 16:26:008.7[facility] APTXRAWFCH2699-42-08 16:26:0013.5[facility] ZzzafnfZSXABZZNRG6310-07-84 16:26:00 4.56[facility] SazmatfGRTJPFGBMR2517-69-76 16:26:00Negative (10/01/14 11:26 AM) [facility]
== END 2019-12-07 21:40 | disposition home or self-care (01) ==
LOC: ER 21:39
DX: H92.01 Otalgia, right ear (principal)
CPT/HCPCS: 99283

== ENCOUNTER 2021-03-29 21:27 | Emergency (ER) | payer BC ==
[~2021-03-29] VITALS: Ht 154.9 cm; Wt 59.4 kg
[2021-03-29] MEDS ORDERED: HYDROCODONE/APAP 7.5MG-325MG 1 EA TAB PO ONE (21:45)
[2021-03-29] MEDS ORDERED: HYDROCODONE/APAP 7.5MG-325MG 1 EA TAB ONE (21:55)
[2021-03-29] MEDS ORDERED: HYDROCODON-ACE1 EAC9 PO (22:53)
== END 2021-03-29 22:55 | disposition home or self-care (01) ==
LOC: ER 21:41
DX: S93.401A Sprain of unspecified ligament of right ankle, initial encounter (principal); X50.1XXA Overexertion from prolonged static or awkward postures, initial encounter; Y93.01 Activity, walking, marching and hiking; Y92.008 Other place in unspecified non-institutional (private) residence as the place of occurrence of the external cause

== ENCOUNTER 2021-04-18 22:59 | Emergency (ER) | payer BC ==
[~2021-04-18] VITALS: Ht 154.9 cm; Wt 59.4 kg
[~2021-04-18 22:59] MED LIST: HYDROCODON-ACE1 EAC9 PO
[2021-04-18] MEDS ORDERED: ONDANSETRON ODT4 MG PO (23:18)
[2021-04-18] MEDS ORDERED: ONDANSETRON HCL 4 MG ORAL DISINTEGRATING TAB ONE (23:27)
[2021-04-18] MEDS ORDERED: ONDANSETRON HCL 4 MG ORAL DISINTEGRATING TAB PO ONE (23:30)
== END 2021-04-18 23:25 | disposition home or self-care (01) ==
LOC: ER 23:03
DX: R11.2 Nausea with vomiting, unspecified (principal); K52.9 Noninfective gastroenteritis and colitis, unspecified; R51.9 Headache, unspecified
CPT/HCPCS: 99283; Q0162

== ENCOUNTER 2022-05-22 19:44 | Emergency (ER) | payer BC ==
[~2022-05-22] VITALS: Ht 154.9 cm; Wt 63.5 kg
[~2022-05-22 19:44] MED LIST changes: +ONDANSETRON ODT4 MG PO
[2022-05-22] MEDS ORDERED: AMOX TR-K CLV1 EAC2 PO (21:13)
== END 2022-05-22 21:20 | disposition home or self-care (01) ==
LOC: ER 19:50
DX: R05.9 Cough, unspecified (principal); J02.0 Streptococcal pharyngitis; R11.0 Nausea
CPT/HCPCS: 71046; 83518; 99283; U0002

== ENCOUNTER 2022-06-25 15:32 | Emergency (ER) | payer BC ==
[~2022-06-25] VITALS: Ht 154.9 cm; Wt 63.5 kg
[~2022-06-25 15:32] MED LIST changes: +AMOX TR-K CLV1 EAC2 PO
[2022-06-25] MEDS ORDERED: DEXAMETHASONE 4 MG TAB PO STA (15:57)
[2022-06-25] MEDS ORDERED: FAMOTIDINE 20 MG TAB PO ONE (16:00)
[2022-06-25] MEDS ORDERED: EPINEPHRIN0.3 MG/0.3 INJ (16:00)
[2022-06-25] MEDS ORDERED: FAMOTIDINE 20 MG TAB ONE (16:11)
[2022-06-25] MEDS ORDERED: DEXAMETHASONE 4 MG TAB ONE (16:11)
== END 2022-06-25 17:01 | disposition home or self-care (01) ==
LOC: ER 15:36
DX: R22.9 Localized swelling, mass and lump, unspecified (principal)
CPT/HCPCS: 99283; J8540

== ENCOUNTER 2022-10-26 22:41 | Emergency (ER) | payer BC ==
[~2022-10-26] VITALS: Ht 154.9 cm; Wt 63.5 kg
[~2022-10-26 22:41] MED LIST changes: +EPINEPHRIN0.3 MG/0.3 INJ
[2022-10-26] MEDS ORDERED: IBUPROFEN 600 MG TAB PO STA (22:49)
[2022-10-26 23:57] VITALS: BP 126/91; O2SAT 100
== END 2022-10-26 23:58 | disposition home or self-care (01) ==
LOC: ER 22:46
DX: S40.022A Contusion of left upper arm, initial encounter (principal); X58.XXXA Exposure to other specified factors, initial encounter
CPT/HCPCS: 93971; 99283